=== PATIENT | male | born 1955 | race Caucasian/White ===

== ENCOUNTER 2020-04-01 19:17 | Observation (INO) | payer OTHER, SELFPAY ==
[2020-04-01] VITALS (15 sets, daily range): BP systolic 142–203; BP diastolic 79–102; PULSE 68–85; RESP 12–18; TEMP 36.6–36.9; O2SAT 94–99; BMI 22.4; BMI 22.1
--- NOTE | 2020-04-01 19:20 | CT_ITS ---
STUDY: CT BRAIN WITHOUT CONTRAST REASON FOR EXAM: Male, 64 years old. Stroke evaluation, left arm weakness. RADIATION DOSAGE (If Supplied By Facility): CTDIvol = ( 44.99 ) mGy, DLP = ( 812.98 ) mGycm TECHNIQUE: Transaxial CT imaging of the brain was performed without administration of intravenous contrast material. Individualized dose optimization techniques were used for this CT. COMPARISON: No relevant priors. FINDINGS: Brain parenchyma is without focal lesions, mass effect, acute intracranial hemorrhage, extra parenchymal fluid collections, hydrocephalus or herniation. The skull is intact. CT/CTA Head AND Neck W/ Contrast IMPRESSION: 1. Normal CT brain. No acute findings. 2. No acute intracranial hemorrhage. 3. No acute territorial infarction. N.B. : The above information has been verbally conveyed by Jinny Sánchez to Mehul Puckett MD, on 04/01/2020 19:40:25 (ET). Electronically Signed: Jinny Sánchez, at 19:38 EDT Tel , Service support ,
--- NOTE | 2020-04-01 19:20 | CT_ITS ---
STUDY: CT BRAIN WITHOUT CONTRAST REASON FOR EXAM: Male, 64 years old. Stroke evaluation, left arm weakness. RADIATION DOSAGE (If Supplied By Facility): CTDIvol = ( 44.99 ) mGy, DLP = ( 812.98 ) mGycm TECHNIQUE: Transaxial CT imaging of the brain was performed without administration of intravenous contrast material. Individualized dose optimization techniques were used for this CT. COMPARISON: No relevant priors. FINDINGS: Brain parenchyma is without focal lesions, mass effect, acute intracranial hemorrhage, extra parenchymal fluid collections, hydrocephalus or herniation. The skull is intact. CT/Brain/Head without Contrast IMPRESSION: 1. Normal CT brain. No acute findings. 2. No acute intracranial hemorrhage. 3. No acute territorial infarction. N.B. : The above information has been verbally conveyed by Jinny Sánchez to Mehul Puckett MD, on 04/01/2020 19:40:25 (ET). Electronically Signed: Jinny Sánchez, at 19:38 EDT Tel , Service support ,
--- NOTE | 2020-04-01 19:53 | EKG12_ITS ---
Test Reason : STOKE SYMPTOMS Blood Pressure : / mmHG Vent. Rate : 077 BPM Atrial Rate : 077 BPM P-R Int : 196 ms QRS Dur : 090 ms QT Int : 396 ms P-R-T Axes : 065 001 052 degrees QTc Int : 448 ms Normal sinus rhythm Normal ECG Confirmed by WHITNEY PRICE, MICHELL ([id number]), research editor BENJAMIN LOBO ([id number]) on 04/05/2020 11:06:26 AM Referred By: MIGUEL Confirmed By:MICHELL OLSON MD
--- NOTE | 2020-04-01 20:00 | ED.VIS.STROK ---
History of Present Illness Chief Complaint: Neuro S/Sx Informant: Patient Onset: Today Narrative: Patient developed strokelike symptoms that started at 1850 about 30 minutes prior to arrival. He developed left arm left leg weakness and some paresthesias in the left face. He did not have any confusion he did not have any dysarthria no vision changes no ataxia or dizziness. He walked into the emergency department brought by his . He denies any medical problems. Past Medical History - Allergies and Home Meds Allergies/Adverse Reactions: Allergies No Known Allergies Allergy (Verified 04/01/20 19:51) Primary Care Physician: José Miguel Montoya MD [Primary Care Provider] - Past Medical History: None Smoking Status: Former smoker Review of Systems All systems negative except as indicated General: Denies: Fever Eyes: Denies: Visual changes - bilaterally ENT: Denies: Sore throat Cardiovascular: Denies: Chest pain Respiratory: Denies: Dyspnea, Cough Gastrointestinal: Denies: Abdominal pain, Nausea Musculoskeletal: Denies: Myalgias, Arthralgias Neurological: Reports: - - As in HPI. Denies: Headache Endocrine: Denies: Polyuria Hematologic: Denies: Easy bruising STROKE Vital Signs/Narrative: Vital Signs Temp Pulse Resp BP Pulse Ox 04/01/20 19:56 99 04/01/20 19:54 98 F 04/01/20 19:53 81 12 169/79 H 94 04/01/20 19:50 77 18 169/79 H 99 04/01/20 19:18 98 F 85 14 203/102 H 99 - NIHSS Initial 1a Level of Consciousness: 0 1b LOC Questions (Score 2 if aphasic/stupor): 0 1c LOC Commands (Only score 1st attempt): 0 2 Best Gaze (If aphasic, use reflexive mvmts.): 0 3 Visual: 0 4 Facial Palsy: 0 5 Motor Arm Right (UN = amputation/fusion): 0 5 Motor Arm Left: 1 6 Motor Leg Right: 0 6 Motor Leg Left: 1 7 Limb ataxia (Only + if out of proportion): 0 8 Sensory (Aphasia/stupor=0 or 1, coma=2): 0 9 Best Language: 0 10 Dysarthria (mute, coma=2, intubated=UN): 0 11 Extinction and Inattention (only scored if +): 0 Total Score: 2 2nd Follow up 1a Level of Consciousness: 0 1b LOC Questions (Score 2 if aphasic/stupor): 0 1c LOC Commands (Only score 1st attempt): 0 2 Best Gaze (If aphasic, use reflexive mvmts.): 0 3 Visual: 0 4 Facial Palsy: 0 5 Motor Arm Right (UN = amputation/fusion): 0 5 Motor Arm Left: 0 6 Motor Leg Right: 0 6 Motor Leg Left: 0 7 Limb ataxia (Only + if out of proportion): 0 8 Sensory (Aphasia/stupor=0 or 1, coma=2): 0 9 Best Language: 0 10 Dysarthria (mute, coma=2, intubated=UN): 0 11 Extinction and Inattention (only scored if +): 0 Total Score: 0 General: Well nourished, Well developed Eyes: Perrl, EOMI ENT: Moist mucous membranes Cardiovascular: Regular rate, Regular rhythm Respiratory: No distress Abdomen: Soft, Nontender Back: Nontender, Normal Inspection Extremities: Nontender, No edema Skin: Normal color Neurological: Alert, Oriented x3, - - See the above NIH stroke scale Psychological: Normal affect Diagnostic/Tx/Re-eval - Rhythm Strip Rhythm Strip: Sinus Rhythm Rate: 77 Ectopy: None - EKG Initial EKG Interpretation: Sinus Rhythm, - - Sinus rhythm with a rate of 77. Normal ND and QTc intervals. No ischemic changes. - Medical Decision Making Stroke Team Activated: Yes IV Alteplase (t-PA) Administered: No Patient's NIH stroke scale improved it is now a 0. Thus the patient does not meet criteria for TPA. His CT is unremarkable he will need admission to the hospital. Critical care time (excluding procedures): - - Discussion with the family, discussion with consultants, admission and direct patient care ED Disposition - Plan for ED Patient: Disposition: Acute Care [facility] Diagnosis: Stroke
[2020-04-01 20:07] LABS: Absolute Lymphocyte Count 2.91 X10^3/uL (0.83-4.51); Absolute Neutrophil Count 5.7 X10^3/uL (2.0-7.7); Basophil# 0.03 X10^3/uL; Basophil% 0.3 % (0-1); Eosinophil# 0.23 X10^3/uL; Eosinophils% 2.4 % (0-5); Hematocrit 43.1 % (40-54); Hemoglobin 14.5 g/dL (13.0-16.5); Lymphocyte # 2.91 X10^3/ul (4.0); Lymphocyte % 30.2 % (19-41); Mean Corp Hgb Conc 33.6 g/dL (32-36); Mean Corpuscular Hgb 30.7 pg (27.0-32.0); Mean Corpuscular Volume 91.3 fL (80-94); Mean Platelet Vol. 9.6 fl (6.2-12.0); Monocyte# 0.78 X10^3/uL; Monocyte% 8.1 % (0-10); NRBC Flagged by Analyzer 0 % (0-5); Neutrophil # 5.65 X10^3/uL (2.7-7.7); Neutrophil % 58.7 % (47-70); Platelet Count 258 K/mm3 (150-450); RBC Distribution Width SD 40.2 fl (35.1-43.9); Red Blood Count 4.72 M/mm3 (4.6-6.2); White Blood Count 9.6 K/mm3 (4.4-11.0)
[2020-04-01 20:12] LABS: Prothrombin Time (Protime)PT. 12.9 SECONDS (11.7-14.9)
[2020-04-01 20:13] LABS: Partial Thromboplast Time 28.2 Seconds (24.1-36.2)
[2020-04-01] MEDS: 0.9% Normal Saline 1,000 ML 50 ML IV (20:16)
--- NOTE | 2020-04-01 20:18 | HP.PCM_ITS ---
Problem List (1) Stroke Status: Acute History of Present Illness Date of Admission: 04/01/20 Chief Complaint: LEFT SIDE WEAKNESS The patient is a 64 year old M who denies any significant past medical history present with sudden left-sided weakness. Her symptoms started few hours before presentation. Initially he had left arm weakness. And then he developed weakness of his left upper extremity and left lower extremity. He reported his left arm was too weak to the point that he could not lift it up. Later on he had resolution of his symptoms. Stroke alert was called at emergency department. Emergent department doctor reported that the radiologist notified him about a plaque in patient's carotid arteries. Brain CT and a CTA was otherwise unremarkable. Emergent department doctor discussed the case with stroke the Tele neurologists at [facility] and patient was not deemed as a candidate of TPA because of low NIH. Past Medical History Medical History: Medical History (Last Reviewed 04/01/20 @ 21:[address] Elton Lopez MD) Patient denies significant medical history Allergies No Known Allergies Allergy (Verified 04/01/20 19:51) Home Medications: Ambulatory Orders Medication Instructions Recorded NK 04/01/20 Surgical History: herniorrhaphy Smoking Status: Former smoker Alcohol: Occasional - *Family History Maternal History Items: Stroke Paternal History Items: Cancer - Lung Review of Systems Constitutional: Denies: Chills, Fever, Weight Change HEENT: Denies: Head Aches, Sinus Congestion, Sinus Drainage Cardiovascular: Denies: Chest Pain, Palpitations Respiratory: Denies: Cough, Shortness of breath at rest, Sputum production Gastrointestinal: Denies: Abdominal Pain, Nausea, Vomiting Genitourinary: Denies: Dysuria Musculoskeletal: Denies: Joint Pain, Joint Tenderness Skin: Denies: Rash, Wounds Neurological: Reports: Focal weakness, Numbness. Denies: Tingling Psychiatric: Denies: Anxiety, Depression, Homicidal Ideations, Suicidal Ideations Hematologic/ Lymphatic: Denies: Easy Bruising, Easy Bleeding VTE Information - Inpt Only VTE Present on Admission: No VTE Mechan Device Prophylaxis: SCD's VTE Pharm Prophylaxis ordered?: No Patient Problems: Active and Suspected Problems (Last Updated 04/01/20 @ 20:[address] Elotn Lopez MD) Stroke (Acute) - Physical Exam Vitals/I&O's: Vital Signs Temp Pulse Resp BP Pulse Ox 98 F 79 18 169/79 H 99 04/01/20 20:12 04/01/20 20:12 04/01/20 20:12 04/01/20 20:12 04/01/20 20:12 Oxygen Flow Rate (L/min) 1 Oxygen Delivery Method Nasal Cannula Weight: 77.02 kg Body Mass Index (BMI) 22.4 Finger Stick Blood Glucose 124 General: Alert, Oriented x3, Cooperative HEENT: Atraumatic, PERRLA, EOMI, Normocephalic Neck: Supple, No JVD, Negative Carotid Bruits Lungs: Clear to auscultation, Normal air movement, No rhonchi, No wheeze, No rales Cardiovascular: Regular rate, Normal S1, Normal S2, No murmurs Abdomen: Bowel Sounds Present, Soft, Non Tender Extremities: No edema, Capillary Refill Less than 3 Seconds Skin: No rashes, No breakdown Musculoskeletal: No Tenderness to Palpation of Joints or Extremities Neurological: Cranial nerves II-XII grossly intact, Deep Tendon Reflexes 2+/4 and Symmetrical, Sensory exam intact to light touch and pain, Coordination normal, - - Motor strength 4 out of 5 in left upper and left lower extremities. Strength 5 out of 5 in the right upper and right lower extremities. Psych/Mental Status: Normal Affect, Appropriate Laboratory Results 04/01/20 19:20: WBC 9.6, RBC 4.72, Hgb 14.5, Hct 43.1, MCV 91.3, MCH 30.7, MCHC 33.6, RDW Std Deviation 40.2, RDW Coeff of Alex 12.0, Plt Count 258, MPV 9.6, Immature Gran % (Auto) 0.300, Neut % (Auto) 58.7, Lymph % (Auto) 30.2, [place] % (Auto) 8.1, Eos % (Auto) 2.4, Baso % (Auto) 0.3, Absolute Neuts (auto) 5.7, Absolute Lymphs (auto) 2.91, Nucleated RBC % 0 04/01/20 19:20: PT 12.9, INR 1.0, APTT 28.2 04/01/20 19:20: Sodium Pending, Potassium Pending, Chloride Pending, Carbon Dioxide Pending, Anion Gap Pending, BUN Pending, Creatinine Pending, Est GFR (MDRD) Af Amer Pending, Est GFR (MDRD) Non-Af Pending, BUN/Creatinine Ratio Pending, Glucose Pending, Calcium Pending Current Medications Sodium Chloride () 1,000 mls @ 50 mls/hr IV .Q20H LESLIE Last Admin: 04/01/20 20:16 Dose: 50 mls/hr Documented by: Assessment/Plan All Active Problems (Last Updated 04/01/20 @ 20:[address] Elton Lopez MD) Stroke (Acute) The patient is a 64 year old M who denies any significant past medical history present with sudden left-sided weakness; and left numbness. Acute CVA Serial NINDS NIH Scale per protocol. CT of the head; and CTA did not show acute bleed. Left ICA ulcerated plaque noted. Possibility of right common carotid fistula or dural AV malformation was raised. Ophthalmology and/or neurology referral was advised. This is not an emergent finding. Please consider discussing with neurologist in a.m. -Check Hba1c, Lipid level Physical therapy, occupational therapy and speech therapy to work with patient. N.p.o. until bedside swallow eval. Daily aspirin. High intensity statin. Check a CMP for liver enzymes. Permissive hypertension. Control blood pressure with labetalol for systolic blood pressure of more than 220 or diastolic blood pressure of more than 120. -Permissive HTN for 24 hrs, detention goal BP < 120/80 mmHg and goal Hba1c < 7% MRI of brain in a.m. Placed on telemetry at the progressive care unit. Echocardiogram ordered. DVT prophylaxis SCD for now. OBSV E&M: [id number] Initial observation care L3
[2020-04-01 20:19] LABS: Anion Gap 9 (5-15); BUN 11 mg/dL (7-18); BUN/Creat Ratio 11.7 RATIO (10-20); Chloride 101 mmol/L (98-107); Creatinine, Serum 0.94 mg/dL (0.70-1.30); EST Glomerular Filtration Rate 86 mL/min (>60); Est Glom Filt Rate - Afr Amer 104 mL/min (>60); Estimated Creatinine Clearance 87.63 ml/min; Glucose 159 mg/dL (74-106); Potassium 3.4 mmol/L (3.5-5.1); Sodium Level 138 mmol/L (136-145)
--- NOTE | 2020-04-01 21:56 | ECHOD_ITS ---
Reason For Study: TIA/CVA Procedure This was a 2D Doppler, Color Flow transthoracic echocardiogram. Contrast injection was performed. Exam performed portable in patient room. Left Ventricle Normal LV size. Left ventricular systolic function is normal. The estimated ejection fraction is 65 %. No evidence for diastolic dysfunction. No regional wall motion abnormalities noted. Right Ventricle Normal RV size. Normal systolic function. Atria Normal left atrium. Normal right atrium. No doppler evidence for ASD. Bubble contrast study negative for right to left interatrial shunt. Mitral Valve There is no mitral annular calcification. Mild diffuse mitral valve thickening. Moderate mitral valve prolapse. Mild (1+) mitral valve insufficiency. Tricuspid Valve Normal tricuspid valve. Trivial tricuspid valve insufficiency. Aortic Valve Trisinus/trileaflet aortic valve. Mild focal aortic valve calcification. Pulmonic Valve The pulmonic valve is not well visualized. Trivial pulmonic valve insufficiency. Great Vessels The aortic root is not well visualized. Pericardium/Pleural No pericardial effusion. Medication Performed a rapid injection of agitated mix of 9 cc saline and 1cc air to assess for atrial septal defect. MMode/2D Measurements & Calculations LVIDd: 4.3 cm IVSd: 1.1 cm LA dimension: 3.3 cm LVIDs: 2.2 cm LVPWd: 1.1 cm FS: 48.8 % LAV(MOD-bp): 47.1 ml LA A4 area: 18.3 cm2 RA A4 area: 18.1 cm2 LAV(MOD-bp) Indexed: 23.6 ml/m2 LAV(MOD-sp2): 44.5 ml LAV(MOD-sp4): 48.5 ml Time Measurements MV dec time: 0.40 sec Doppler Measurements & Calculations MV E max benji: 61.2 cm/sec Lat Peak E' Benji: 9.9 cm/sec Med Peak E' Benji: 9.6 cm/sec MV A max benji: 86.3 cm/sec E/E' lat: 6.2 E/E' med: 6.4 MV E/A: 0.71 MV V2 max: 129.0 cm/sec MV P1/2t max benji: 131.9 cm/sec Ao V2 max: 121.3 cm/sec MV max P.7 mmHg MV P1/2t: 110.4 msec Ao max P.9 mmHg MV V2 mean: 62.5 cm/sec MV dec slope: 349.9 cm/sec2 MV mean P.9 mmHg MV V2 VTI: 45.8 cm MVA(P1/2t): 2.0 cm2 LV V1 max: 100.6 cm/sec PA V2 max: 80.9 cm/sec LV V1 max P.0 mmHg Interpretation Summary Contrast injection was performed. Left ventricular systolic function is normal. The estimated ejection fraction is 65 %. Mild diffuse mitral valve thickening. Moderate mitral valve prolapse. Mild (1+) mitral valve insufficiency. Trivial tricuspid valve insufficiency. Mild focal aortic valve calcification. Trivial pulmonic valve insufficiency. No evidence for diastolic dysfunction. Bubble contrast study negative for right to left interatrial shunt. Ordering Physician: Elton Lopez Referring Physician: MARI WALKER Performed By: Avery Fatima RCS
[2020-04-01] MEDS: Atorvastatin Calcium 40 MG Tablet PO (23:02)
[2020-04-02] VITALS (12 sets, daily range): BP systolic 116–155; BP diastolic 70–84; PULSE 50–70; RESP 12–18; TEMP 36.6–37; O2SAT 95–97; BMI 22.1
[2020-04-02 07:14] LABS: ALB/GLOB Ratio 1.1 RATIO (0.9-2.4); AST(SGOT) 22 U/L (15-37); Alanine Aminotransfer ALT/SGPT 24 U/L (16-61); Albumin, Serum 3.8 g/dL (3.2-5.0); Alkaline Phosphatase 53 U/L (45-117); Anion Gap 7 (5-15); BUN 11 mg/dL (7-18); BUN/Creat Ratio 15.7 RATIO (10-20); Calcium,Total 8.9 mg/dL (8.5-10.1); Chloride 105 mmol/L (98-107); Cholesterol 220 mg/dL (200); EST Glomerular Filtration Rate 121 mL/min (>60); Est Glom Filt Rate - Afr Amer 146 mL/min (>60); Estimated Creatinine Clearance 116.11 ml/min; Globulin 3.4 g/dL (2.2-4.2); Glucose 108 mg/dL (74-106); High Density Lipoprotein 74 mg/dL; Potassium 4.1 mmol/L (3.5-5.1); Protein, Total 7.2 g/dL (6.4-8.2); Sodium Level 137 mmol/L (136-145); Triglycerides 64 mg/dL; Very Low Density Lipoprotein 13 mg/dL (5-40)
[2020-04-02 07:23] LABS: Hemoglobin A1c 5.7 % (3.8-5.6)
--- NOTE | 2020-04-02 07:30 | MRI_ITS ---
We are attempting to reach an attending provider to discuss findings. An addendum with communication details will be sent when the communication is complete. STUDY: MRI BRAIN WITHOUT CONTRAST REASON FOR EXAM: Male, 64 years old. CVA, LEFT ARM NUMBNESS TECHNIQUE: Standardized multiplanar fat and water weighted pulse sequences were obtained. COMPARISON: 04/01/2020 CT of the head FINDINGS: Normal size of the ventricles and extra-axial spaces for the patient''s age. Normal white matter tracts of the supratentorial brain. There is approximately 8 mm area of restricted diffusion involving the posterior right frontal lobe (axial image #22 series 4) with drop of signal on ADC map, consistent with acute infarction. Normal bilateral basal ganglia. Normal thalami. There is no extra-axial fluid accumulation. Normal flow voids within the major intracranial circulation suggesting patency by spin echo criteria. Normal sella turcica, pituitary gland, infundibular stalk, optic chiasm and hypothalamus. Normal tectal plate and pineal gland. Normal midbrain, kenny and medulla. Normal cerebellum. Normal basal cisterns. MRI/Brain without Contrast IMPRESSION: Acute small right frontal infarct. Electronically Signed: Lucio Rodriguez MD at 11:29 EDT Tel , Service support ,
[2020-04-02] MEDS: Aspirin 81 MG TAB.CHEW PO (09:03)
--- NOTE | 2020-04-02 09:48 | PN_ITS ---
Patient Problems: Active and Suspected Problems (Last Reviewed 04/01/20 @ 21:[address] Elton Lopez MD) Stroke (Acute) Vitals/I&O's: Vital Signs Temp Pulse Resp BP Pulse Ox 98.3 F 59 L 18 142/77 H 97 04/02/20 08:59 04/02/20 08:59 04/02/20 08:59 04/02/20 08:59 04/02/20 08:59 Oxygen Flow Rate (L/min) 1 Oxygen Delivery Method Room Air Weight: 167 lb 8.821 oz Body Mass Index (BMI) 22.1 Finger Stick Blood Glucose 124 Intake and Output for Last 24 Hours 03/31/20 04/01/20 04/02/20 23:59 23:59 23:59 Intake Total 139.17 / 339.17 200 / 200 Balance 139.17 / 339.17 200 / 200 Laboratory Results 04/01/20 19:20: WBC 9.6, RBC 4.72, Hgb 14.5, Hct 43.1, MCV 91.3, MCH 30.7, MCHC 33.6, RDW Std Deviation 40.2, RDW Coeff of Alex 12.0, Plt Count 258, MPV 9.6, Immature Gran % (Auto) 0.300, Neut % (Auto) 58.7, Lymph % (Auto) 30.2, [place] % (Auto) 8.1, Eos % (Auto) 2.4, Baso % (Auto) 0.3, Absolute Neuts (auto) 5.7, Absolute Lymphs (auto) 2.91, Nucleated RBC % 0 04/01/20 19:20: PT 12.9, INR 1.0, APTT 28.2 04/01/20 19:20: Sodium 138, Potassium 3.4 L, Chloride 101, Carbon Dioxide 28.0, Anion Gap 9, BUN 11, Creatinine 0.94, Estim Creat Clear Calc 87.63, Est GFR (MDRD) Af Amer 104, Est GFR (MDRD) Non-Af 86, BUN/Creatinine Ratio 11.7, Glucose 159 H, Calcium 9.0 04/02/20 06:37: Sodium 137, Potassium 4.1, Chloride 105, Carbon Dioxide 25.0, Anion Gap 7, BUN 11, Creatinine 0.70, Estim Creat Clear Calc 116.11, Est GFR (MDRD) Af Amer 146, Est GFR (MDRD) Non-Af 121, BUN/Creatinine Ratio 15.7, Glucose 108 H, Calcium 8.9, Total Bilirubin 0.50, AST 22, ALT 24, Alkaline Phosphatase 53, Total Protein 7.2, Albumin 3.8, Globulin 3.4, Albumin/Globulin Ratio 1.1, Triglycerides 64, Cholesterol 220 H, LDL Cholesterol 133 H, VLDL Cholesterol 13, HDL Cholesterol 74 04/02/20 06:37: Hemoglobin A1c 5.7 H Current Medications Acetaminophen (Tylenol) 650 mg PO Q6H PRN PRN PRN Reason: Pain Score 1-10/Temp > 100.7 F Aspirin (Aspirin, Baby) 81 mg PO DAILY@0800 [facility] Last Admin: 04/02/20 09:03 Dose: 81 mg Documented by: Atorvastatin Calcium (Lipitor) 40 mg PO QHS [facility] Last Admin: 04/01/20 23:02 Dose: 40 mg Documented by: Dextrose (D50w Syringe) 0 gm IV X1 PRN; Protocol PRN Reason: Hypoglycemia Glucagon () 1 mg IM .X1 PRN PRN Reason: Hypoglycemia Hydralazine HCl (Apresoline Iv) 5 mg IV Q30M PRN PRN Reason: to maintain BP goals Labetalol HCl (Trandate) 10 - 20 mg IV Q10M PRN PRN PRN Reason: to maintain BP goals Melatonin (Melatonin) 3 mg PO QHS PRN PRN PRN Reason: INSOMNIA Ondansetron HCl (Zofran) 4 mg IV Q8H PRN PRN PRN Reason: NAUSEA/VOMITING Sodium Chloride () 10 - 40 ml IV UD PRN PRN Reason: SALINE FLUSH STROKE Vital Signs/Narrative: Vital Signs Temp Pulse Resp BP Pulse Ox 04/02/20 08:59 98.3 F 59 L 18 142/77 H 97 04/02/20 07:52 50 L 04/02/20 06:00 60 15 116/70 95 Medical Necessity - Tobacco Use Smoking Status: Former smoker Assessment/Plan All Active Problems (Last Reviewed 04/01/20 @ 21:[address] Elton Lopez MD) Stroke (Acute) The patient is a 64 year old M who denies any significant past medical history present with sudden left-sided weakness; and left numbness. Acute CVA Serial NINDS NIH Scale per protocol. CT of the head; and CTA did not show acute bleed. Left ICA ulcerated plaque noted. Possibility of right common carotid fistula or dural AV malformation was raised. Ophthalmology and/or neurology referral was advised. This is not an emergent finding. Please consider discussing with neurologist in a.m. -Check Hba1c, Lipid level Physical therapy, occupational therapy and speech therapy to work with patient. N.p.o. until bedside swallow eval. Daily aspirin. High intensity statin. Check a CMP for liver enzymes. Permissive hypertension. Control blood pressure with labetalol for systolic blood pressure of more than 220 or diastolic blood pressure of more than 120. -Permissive HTN for 24 hrs, custodial goal BP < 120/80 mmHg and goal Hba1c < 7% MRI of brain in a.m. Placed on telemetry at the progressive care unit. Echocardiogram ordered. DVT prophylaxis SCD for now.
--- NOTE | 2020-04-02 11:59 | PN_ITS ---
Patient Problems: Active and Suspected Problems (Last Reviewed 04/01/20 @ 21:[address] Elton Lopez MD) Stroke (Acute) Reason for Visit: Follow-up for acute stroke Objective: Patient symptoms of weakness, paresthesia and numbness has resolved on the left side. Blood pressure is on permissive hypertension range. Normal sinus with sinus arrhythmia on phototypesetting equipment monitor. EKG sinus bradycardia at 55 bpm, QTC 415 ms On exam General: Alert, Oriented x3, Cooperative HEENT: Atraumatic, PERRLA, EOMI, Normocephalic Neck: Supple, No JVD, Negative Carotid Bruits Lungs: Clear to auscultation, Normal air movement, No rhonchi, No wheeze, No rales Cardiovascular: Regular rate, Regular Rhythm, Normal S1, Normal S2, No murmurs Abdomen: Bowel Sounds Present, Soft, Non Tender, Non-Distended Extremities: No edema, Capillary Refill Less than 3 Seconds Skin: No rashes, No breakdown Musculoskeletal: No Tenderness to Palpation of Joints or Extremities Neurological: Cranial nerves II-XII grossly intact Psych/Mental Status: Normal Affect, Appropriate Vitals/I&O's: Vital Signs Temp Pulse Resp BP Pulse Ox 97.9 F 57 L 18 155/84 H 96 04/02/20 16:30 04/02/20 16:30 04/02/20 16:30 04/02/20 16:30 04/02/20 16:30 Oxygen Flow Rate (L/min) 1 Oxygen Delivery Method Room Air Weight: 167 lb 8.821 oz Body Mass Index (BMI) 22.1 Finger Stick Blood Glucose 124 Intake and Output for Last 24 Hours 03/31/20 04/01/20 04/02/20 23:59 23:59 23:59 Intake Total 139.17 / 339.17 200 / 200 Balance 139.17 / 339.17 200 / 200 Laboratory Results 04/01/20 19:20: WBC 9.6, RBC 4.72, Hgb 14.5, Hct 43.1, MCV 91.3, MCH 30.7, MCHC 33.6, RDW Std Deviation 40.2, RDW Coeff of Alex 12.0, Plt Count 258, MPV 9.6, Immature Gran % (Auto) 0.300, Neut % (Auto) 58.7, Lymph % (Auto) 30.2, [place] % (Auto) 8.1, Eos % (Auto) 2.4, Baso % (Auto) 0.3, Absolute Neuts (auto) 5.7, Absolute Lymphs (auto) 2.91, Nucleated RBC % 0 04/01/20 19:20: PT 12.9, INR 1.0, APTT 28.2 04/01/20 19:20: Sodium 138, Potassium 3.4 L, Chloride 101, Carbon Dioxide 28.0, Anion Gap 9, BUN 11, Creatinine 0.94, Estim Creat Clear Calc 87.63, Est GFR (MDRD) Af Amer 104, Est GFR (MDRD) Non-Af 86, BUN/Creatinine Ratio 11.7, Glucose 159 H, Calcium 9.0 04/02/20 06:37: Sodium 137, Potassium 4.1, Chloride 105, Carbon Dioxide 25.0, Anion Gap 7, BUN 11, Creatinine 0.70, Estim Creat Clear Calc 116.11, Est GFR (MDRD) Af Amer 146, Est GFR (MDRD) Non-Af 121, BUN/Creatinine Ratio 15.7, Glucose 108 H, Calcium 8.9, Total Bilirubin 0.50, AST 22, ALT 24, Alkaline Phosphatase 53, Total Protein 7.2, Albumin 3.8, Globulin 3.4, Albumin/Globulin Ratio 1.1, Triglycerides 64, Cholesterol 220 H, LDL Cholesterol 133 H, VLDL Cholesterol 13, HDL Cholesterol 74 04/02/20 06:37: Hemoglobin A1c 5.7 H Current Medications Acetaminophen (Tylenol) 650 mg PO Q6H PRN PRN PRN Reason: Pain Score 1-10/Temp > 100.7 F Aspirin (Aspirin, Baby) 81 mg PO DAILY@0800 [facility] Last Admin: 04/02/20 09:03 Dose: 81 mg Documented by: Clopidogrel Bisulfate (Plavix) 75 mg PO DAILY [facility] Last Admin: 04/02/20 13:56 Dose: 75 mg Documented by: Dextrose (D50w Syringe) 0 gm IV X1 PRN; Protocol PRN Reason: Hypoglycemia Glucagon () 1 mg IM .X1 PRN PRN Reason: Hypoglycemia Hydralazine HCl (Apresoline Iv) 5 mg IV Q30M PRN PRN Reason: to maintain BP goals Labetalol HCl (Trandate) 10 - 20 mg IV Q10M PRN PRN PRN Reason: to maintain BP goals Melatonin (Melatonin) 3 mg PO QHS PRN PRN PRN Reason: INSOMNIA Ondansetron HCl (Zofran) 4 mg IV Q8H PRN PRN PRN Reason: NAUSEA/VOMITING Pravastatin Sodium (Pravachol) 40 mg PO QHS [facility] Sodium Chloride () 10 - 40 ml IV UD PRN PRN Reason: SALINE FLUSH STROKE Vital Signs/Narrative: Vital Signs Temp Pulse Resp BP Pulse Ox 04/02/20 16:30 97.9 F 57 L 18 155/84 H 96 Medical Necessity - Tobacco Use Smoking Status: Former smoker Assessment/Plan All Active Problems (Last Reviewed 04/01/20 @ 21:[address] Elton Lopez MD) Stroke (Acute) 1. Acute small right frontal infarct: Patient is being admitted in PCU. cafeteria monitor shows sinus rhythm with sinus arrhythmia. EKG sinus bradycardia at 55 bpm, QTC 415 ms. Blood pressure in permissive hypertension range. A1c 5.7 suggestive of prediabetes. PT OT and speech evaluation done and found in normal range. CTA head and neck reviewed and shows patent cervical arteries with bilateral common carotid bulbs ulcerated plaques. SOC neurology consult pending. 2D echo negative for right to left interatrial shunt. Normal left atrium. 2. Hypertension: Patient blood pressure was high at 203/102 in ED. Currently permissive hypertension. Lisinopril 10 mg daily next 1 or 2 days with holding parameters. 3. Dyslipidemia: Fasting profile shows LDL 133, total cholesterol 220. Patient has known dyslipidemia was put on atorvastatin which caused myalgia and as per patient decreased muscle bulk in quadriceps therefore he discontinued. Patient agreed for pravastatin if not atorvastatin. 4. DVT prophylaxis bilateral SCDs Total time of the visit including total time spent in counseling or coordination of care, (more than 50% of the total time, spent in obtaining medical information from nurses and other ancillary care providers), discussion with consultant nurse, neurologist, explaining to patient and his , review of labs and imaging is 30 minutes Inpatient E&M: 02657 Subs Hosp L2
--- NOTE | 2020-04-02 13:39 | CASEMGMT ---
RN CM Assessment Note Chart reviewed. Pt with CVA, OBS status. PT/OT/ST evaluations reviewed and no further therapy is recommended. Physician is waiting for neurology f/u and anticipate patient can return home on dc. Presentation: Left arm and leg weakness, paresthesias L face. Diagnosis: Acute small right frontal infarct PCP: Dr. Montoya Specialists: neurology Insurance: MMO Preferred Pharmacy: [facility] Prescription Benefit: yes LNOK: Omar Caballero, S.O. Living Arrangements: one story home, three steps into home. Was independent prior to admission. 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 Tranportation: drives DME: cane Patient DC Goals: Home on dc. DC Plan: Home. No needs identified. Notify CM if dc need arise. Bib DALY RN ACM
--- NOTE | 2020-04-02 13:54 | DCINST_ITS ---
- Discharge Diagnoses Current Active Problems: Current Active and Chronic Problems (Last Reviewed 04/01/20 @ 21:[address] Elton Lopez MD) Stroke (Acute) You will use the following diet at home:: Cardiac Your food should be the consistency of: Regular Discharge Activity: May Not Drive - for few days until sees PCP. Call your doctor if you observe: Fever of 101 or Higher, Coldness, Increased Pain, Numbness or Tingling, Change in Color, Inability to urinate, Inability to have a bowel movement, Shortness of breath, Dizziness, Fainting spells, Swelling in the ankles, Chest pain, Prolonged hiccoughing, Increased palpitations (irregular heartbeat), Calf discomfort, Uncontrolled pain Additional Instructions: Follow-up with neurologist for asymmetric cavernous sinuses with possibility of right CCA fistula or dural AV malformation. Allergies/Adverse Reactions: Allergies No Known Allergies Allergy (Verified 04/01/20 19:51) Medications to take at Discharge Aspirin [Aspirin, Baby] 81 mg PO DAILY@0800 #30 tab.chew 04/02/20 Clopidogrel Bisulfate [Plavix] 75 mg PO DAILY #30 tab 04/02/20 Lisinopril [Prinivil] 10 mg PO DAILY #30 tab 04/02/20 Pravastatin [Pravachol] 40 mg PO QHS #30 tab 04/02/20 The following prescriptions were given: Aspirin [Aspirin, Baby] 81 mg PO DAILY@0800 #30 tab.chew Transmission Status: Pending to [facility] Clopidogrel Bisulfate [Plavix] 75 mg PO DAILY #30 tab Transmission Status: Pending to [facility] Pravastatin [Pravachol] 40 mg PO QHS #30 tab Transmission Status: Pending to [facility] Lisinopril [Prinivil] 10 mg PO DAILY #30 tab Transmission Status: Pending to [facility] Primary Care Physician: José Miguel Montoya MD [Primary Care Provider] - Please follow up with your Primary Care Physician in: IN 1-2 WEEKS Test Results: Test results from this visit will be discussed in further detail at your follow- up appointment, if applicable. Please Follow Up With: Robert Henson MD When: IN 2 WEEKS for follow up stroke
[2020-04-02] MEDS: Clopidogrel Bisulfate 75 MG Tablet PO (13:56)
--- NOTE | 2020-04-02 14:03 | EKG12_ITS ---
Test Reason : ROUTINE Blood Pressure : / mmHG Vent. Rate : 055 BPM Atrial Rate : 055 BPM P-R Int : 190 ms QRS Dur : 088 ms QT Int : 434 ms P-R-T Axes : 058 000 037 degrees QTc Int : 415 ms Sinus bradycardia Otherwise normal ECG When compared with ECG of 01-APR-2020 19:51, MANUAL COMPARISON REQUIRED, DATA IS UNCONFIRMED Confirmed by GABO GIRON ([id number]), editor news BENJAMIN LOBO ([id number]) on 04/07/2020 12:09:55 PM Referred By: RA Confirmed By:GABO GIRON
[2020-04-02] MEDS: Pravastatin 40 MG Tablet PO (20:34)
[2020-04-03 00:30] VITALS: BP 118/75; PULSE 71; RESP 14; TEMP 37.1; O2SAT 96
[2020-04-03 02:59] VITALS: PULSE 55
[2020-04-03 04:30] VITALS: BP 120/79; PULSE 62; RESP 12; TEMP 37; O2SAT 96
[2020-04-03 04:41] VITALS: BMI 22.1
[2020-04-03 06:48] VITALS: PULSE 62
[2020-04-03 07:07] VITALS: O2SAT 91
[2020-04-03 07:33] VITALS: BMI 22.1
[2020-04-03 07:40] VITALS: BP 123/76; PULSE 57; RESP 14; TEMP 36.7; O2SAT 95
[2020-04-03] MEDS: Aspirin 81 MG TAB.CHEW PO (07:42)
[2020-04-03] MEDS: Clopidogrel Bisulfate 75 MG Tablet PO (07:42)
--- NOTE | 2020-04-03 08:36 | DCINST_ITS ---
- Discharge Diagnoses Current Active Problems: Current Active and Chronic Problems (Last Reviewed 04/01/20 @ 21:[address] Elton Lopez MD) Stroke (Acute) You will use the following diet at home:: Calorie/Carbohydrate Controlled (specify 1200, 1400, etc) - 1800 ADA diet, Cardiac Your food should be the consistency of: Regular Discharge Activity: May Not Drive - for few days until sees PCP. Call your doctor if you observe: Fever of 101 or Higher, Coldness, Increased Pain, Numbness or Tingling, Change in Color, Inability to urinate, Inability to have a bowel movement, Shortness of breath, Dizziness, Fainting spells, Swelling in the ankles, Chest pain, Prolonged hiccoughing, Increased palpitations (irregular heartbeat), Calf discomfort, Uncontrolled pain Additional Instructions: Event monitor for 4 weeks to rule out arrhythmia for cryptogenic stroke. Follow-up with the stroke neurologist Dr. Eri Sherman in , [facility] in 2 to 4 weeks. Allergies/Adverse Reactions: Allergies No Known Allergies Allergy (Verified 04/01/20 19:51) Medications to take at Discharge Aspirin [Aspirin, Baby] 81 mg PO DAILY@0800 #30 tab.chew 04/02/20 Clopidogrel Bisulfate [Plavix] 75 mg PO DAILY #30 tab 04/02/20 Lisinopril [Prinivil] 10 mg PO DAILY #30 tab 04/02/20 Atorvastatin Calcium [Lipitor] 40 mg PO QHS #30 tab 04/03/20 The following prescriptions were given: Aspirin [Aspirin, Baby] 81 mg PO DAILY@0800 #30 tab.chew Transmission Status: Received by [facility] Atorvastatin Calcium [Lipitor] 40 mg PO QHS #30 tab Transmission Status: Pending to [facility] Clopidogrel Bisulfate [Plavix] 75 mg PO DAILY #30 tab Transmission Status: Received by [facility] Lisinopril [Prinivil] 10 mg PO DAILY #30 tab Transmission Status: Received by [facility] Primary Care Physician: José Miguel Montoya MD [Primary Care Provider] - Please follow up with your Primary Care Physician in: IN 1-2 WEEKS Test Results: Test results from this visit will be discussed in further detail at your follow- up appointment, if applicable. Please Follow Up With: Robert Henson MD When: IN 4 WEEKS, if could not appointment Dr. Eri Sherman Please Follow Up With: José Miguel Montoya MD When: 1-2 weeks
--- NOTE | 2020-04-03 08:48 | PCM.DC.SUM ---
Discharge Date and Diagnosis Date of Admission: 04/01/20 Date of Discharge: 04/02/20 - Primary Discharge Diagnosis Acute Problems: Active Problems (Last Reviewed 04/01/20 @ 21:[address] Elton Lopez MD) Stroke (Acute) Hospital Course and Treatment Imaging Results: 04/02/20 07:30 Brain without Contrast [MRI] Routine Summary of Care Provided: [] The patient is a 64 year old M who denies any significant past medical history present with sudden left-sided weakness; and left numbness. His blood pressure in ED was 203/102 patient was admitted to PCU with acute CVAs. Initial NIH stroke scale was 2; one-point for each left arm and left leg drift. Subsequently NIH stroke scale was 0 with resolution of symptoms. [facility] stroke team was consulted and suggested no TPA but admission in PCU. She was further admitted in PCU. binder roller shows normal sinus rhythm. MRI brain reported acute small right frontal infarct. CTA head and neck shows patent cervical arteries with bilateral common carotid bulbs ulcerated plaques. Fasting profile shows LDL 133, total cholesterol 220. Patient is started on aspirin, Plavix and statin. Patient had severe myalgia with atorvastatin patch therefore statin changed to pravastatin and advised close follow-up with PCP in 1 to 2 weeks in regards to myalgia, muscle weakness and lab assessment with LFT, CK and electrolytes. Patient was seen by PT OT and speech therapy and assessment was found within normal limit and suggested discharge home. BP is elevated in permissive range. 2D echo EF 65% with bubble contrast was negative for [id number] interatrial shunt. Normal left atrium. [facility] neurologist recommended follow-up with stroke neurologist in 2 to 4 weeks, recommended Dr. Eri Sherman. Holter monitor for 2 to 4 weeks and follow-up with cardiology. Agree with aspirin, Plavix and atorvastatin. A1c 5.7 suggestive of prediabetes. prescription for aspirin, Plavix, lisinopril and atorvastatin sent to patient's pharmacy, [facility]. Discussed with pharmacist. Discharge medication reconciliation done. Discharge follow-up instructions completed. Discharge process discussed with the patient and all questions were answered to patient's satisfaction. Follow-up with order picker Dr. Quinonez in 4 weeks with return of Holter monitor/event monitor Total time spent, exact 35 minutes on discharge meds reconciliation, examination, coordination of care with nurses and ancillary staff, review of imaging and blood test and discussion with the patient on follow-up instructions Clinical Impression(s) from Imaging Studies Brain CT 04/01/20 19:20 IMPRESSION: 1. Normal CT brain. No acute findings. 2. No acute intracranial hemorrhage. 3. No acute territorial infarction. Head/Neck CTA 04/01/20 19:20 IMPRESSION: 1. Normal CT brain. No acute findings. 2. No acute intracranial hemorrhage. 3. No acute territorial infarction. ADDENDUM: 04/01/202113 IMPRESSION: 1. Patent cervical arteries. 2. Bilateral common carotid bulbs ulcerated plaques, this is a high risk appearance for acute cerebrovascular events. Neurology referral is advised. Brain MRI 04/02/20 07:30 IMPRESSION: Acute small right frontal infarct. IMPRESSION: Acute small right frontal infarct. Laboratory Results 04/01/20 19:20: WBC 9.6, RBC 4.72, Hgb 14.5, Hct 43.1, MCV 91.3, MCH 30.7, MCHC 33.6, RDW Std Deviation 40.2, RDW Coeff of Alex 12.0, Plt Count 258, MPV 9.6, Immature Gran % (Auto) 0.300, Neut % (Auto) 58.7, Lymph % (Auto) 30.2, [place] % (Auto) 8.1, Eos % (Auto) 2.4, Baso % (Auto) 0.3, Absolute Neuts (auto) 5.7, Absolute Lymphs (auto) 2.91, Nucleated RBC % 0 04/01/20 19:20: PT 12.9, INR 1.0, APTT 28.2 04/01/20 19:20: Sodium 138, Potassium 3.4 L, Chloride 101, Carbon Dioxide 28.0, Anion Gap 9, BUN 11, Creatinine 0.94, Estim Creat Clear Calc 87.63, Est GFR (MDRD) Af Amer 104, Est GFR (MDRD) Non-Af 86, BUN/Creatinine Ratio 11.7, Glucose 159 H, Calcium 9.0 04/02/20 06:37: Sodium 137, Potassium 4.1, Chloride 105, Carbon Dioxide 25.0, Anion Gap 7, BUN 11, Creatinine 0.70, Estim Creat Clear Calc 116.11, Est GFR (MDRD) Af Amer 146, Est GFR (MDRD) Non-Af 121, BUN/Creatinine Ratio 15.7, Glucose 108 H, Calcium 8.9, Total Bilirubin 0.50, AST 22, ALT 24, Alkaline Phosphatase 53, Total Protein 7.2, Albumin 3.8, Globulin 3.4, Albumin/Globulin Ratio 1.1, Triglycerides 64, Cholesterol 220 H, LDL Cholesterol 133 H, VLDL Cholesterol 13, HDL Cholesterol 74 04/02/20 06:37: Hemoglobin A1c 5.7 H Objective: Symptoms of weakness and paresthesia and numbness is resolved on the left side. Blood pressure is on permissive hypertension range. Normal sinus rhythm on network operations lead. Sinus arrhythmia. Patient agreed for taking atorvastatin. Discussed with the SOC telemetry neurology yesterday regarding follow-up with stroke neurologist and Holter monitor. - Physical Exam Vitals/I&O's: Vital Signs Temp Pulse Resp BP Pulse Ox 98.3 F 63 18 138/80 H 95 04/02/20 12:53 04/02/20 13:49 04/02/20 12:53 04/02/20 12:53 04/02/20 12:53 Oxygen Flow Rate (L/min) 1 Oxygen Delivery Method Room Air Weight: 167 lb 8.821 oz Body Mass Index (BMI) 22.1 Finger Stick Blood Glucose 124 Intake and Output for Last 24 Hours 03/31/20 04/01/20 04/02/20 23:59 23:59 23:59 Intake Total 139.17 / 339.17 200 / 200 Balance 139.17 / 339.17 200 / 200 General: Alert, Oriented x3, Cooperative HEENT: Atraumatic, PERRLA, EOMI, Normocephalic Neck: Supple, No JVD, Negative Carotid Bruits Lungs: Clear to auscultation, Normal air movement, No rhonchi, No wheeze, No rales Cardiovascular: Regular rate, Regular Rhythm, Normal S1, Normal S2, No murmurs Abdomen: Bowel Sounds Present, Soft, Non Tender, Non-Distended Extremities: No edema, Capillary Refill Less than 3 Seconds Skin: No rashes, No breakdown Musculoskeletal: No Tenderness to Palpation of Joints or Extremities Neurological: Cranial nerves II-XII grossly intact Psych/Mental Status: Normal Affect, Appropriate Laboratory Results 04/01/20 19:20: WBC 9.6, RBC 4.72, Hgb 14.5, Hct 43.1, MCV 91.3, MCH 30.7, MCHC 33.6, RDW Std Deviation 40.2, RDW Coeff of Alex 12.0, Plt Count 258, MPV 9.6, Immature Gran % (Auto) 0.300, Neut % (Auto) 58.7, Lymph % (Auto) 30.2, [place] % (Auto) 8.1, Eos % (Auto) 2.4, Baso % (Auto) 0.3, Absolute Neuts (auto) 5.7, Absolute Lymphs (auto) 2.91, Nucleated RBC % 0 04/01/20 19:20: PT 12.9, INR 1.0, APTT 28.2 04/01/20 19:20: Sodium 138, Potassium 3.4 L, Chloride 101, Carbon Dioxide 28.0, Anion Gap 9, BUN 11, Creatinine 0.94, Estim Creat Clear Calc 87.63, Est GFR (MDRD) Af Amer 104, Est GFR (MDRD) Non-Af 86, BUN/Creatinine Ratio 11.7, Glucose 159 H, Calcium 9.0 04/02/20 06:37: Sodium 137, Potassium 4.1, Chloride 105, Carbon Dioxide 25.0, Anion Gap 7, BUN 11, Creatinine 0.70, Estim Creat Clear Calc 116.11, Est GFR (MDRD) Af Amer 146, Est GFR (MDRD) Non-Af 121, BUN/Creatinine Ratio 15.7, Glucose 108 H, Calcium 8.9, Total Bilirubin 0.50, AST 22, ALT 24, Alkaline Phosphatase 53, Total Protein 7.2, Albumin 3.8, Globulin 3.4, Albumin/Globulin Ratio 1.1, Triglycerides 64, Cholesterol 220 H, LDL Cholesterol 133 H, VLDL Cholesterol 13, HDL Cholesterol 74 04/02/20 06:37: Hemoglobin A1c 5.7 H Current Medications Acetaminophen (Tylenol) 650 mg PO Q6H PRN PRN PRN Reason: Pain Score 1-10/Temp > 100.7 F Aspirin (Aspirin, Baby) 81 mg PO DAILY@0800 [facility] Last Admin: 04/02/20 09:03 Dose: 81 mg Documented by: Clopidogrel Bisulfate (Plavix) 75 mg PO DAILY [facility] Last Admin: 04/02/20 13:56 Dose: 75 mg Documented by: Dextrose (D50w Syringe) 0 gm IV X1 PRN; Protocol PRN Reason: Hypoglycemia Glucagon () 1 mg IM .X1 PRN PRN Reason: Hypoglycemia Hydralazine HCl (Apresoline Iv) 5 mg IV Q30M PRN PRN Reason: to maintain BP goals Labetalol HCl (Trandate) 10 - 20 mg IV Q10M PRN PRN PRN Reason: to maintain BP goals Melatonin (Melatonin) 3 mg PO QHS PRN PRN PRN Reason: INSOMNIA Ondansetron HCl (Zofran) 4 mg IV Q8H PRN PRN PRN Reason: NAUSEA/VOMITING Pravastatin Sodium (Pravachol) 40 mg PO QHS [facility] Sodium Chloride () 10 - 40 ml IV UD PRN PRN Reason: SALINE FLUSH Discharge Activity: May Not Drive - for few days until sees PCP. Call your doctor if you observe: Fever of 101 or Higher, Coldness, Increased Pain, Numbness or Tingling, Change in Color, Inability to urinate, Inability to have a bowel movement, Shortness of breath, Dizziness, Fainting spells, Swelling in the ankles, Chest pain, Prolonged hiccoughing, Increased palpitations (irregular heartbeat), Calf discomfort, Uncontrolled pain Home Medications: Medications to take at Discharge Aspirin [Aspirin, Baby] 81 mg PO DAILY@0800 #30 tab.chew 04/02/20 Clopidogrel Bisulfate [Plavix] 75 mg PO DAILY #30 tab 04/02/20 Lisinopril [Prinivil] 10 mg PO DAILY #30 tab 04/02/20 Atorvastatin Calcium [Lipitor] 40 mg PO QHS #30 tab 04/03/20 Following Prescrptions Were Given to Patient: Aspirin [Aspirin, Baby] 81 mg PO DAILY@0800 #30 tab.chew Transmission Status: Received by [facility] Atorvastatin Calcium [Lipitor] 40 mg PO QHS #30 tab Transmission Status: Received by [facility] Clopidogrel Bisulfate [Plavix] 75 mg PO DAILY #30 tab Transmission Status: Received by [facility] Lisinopril [Prinivil] 10 mg PO DAILY #30 tab Transmission Status: Received by [facility] Other Amb Orders: 30-Day Event Recorder [[facility]] Location: None Selected Primary Care Physician: José Miguel Montoya MD [Primary Care Provider] - Please follow up with your Primary Care Physician in: IN 1-2 WEEKS Please Follow Up With: Robert Henson MD When: IN 2 WEEKS for follow up stroke Medical Necessity - Tobacco Use Smoking Status: Former smoker Meaningful Use Info Meaningful Use Diagnoses (Choose all that apply): Ischemic CVA - CVA Therapy Assessed for PT,OT and/or ST?: Yes - Ischemic Stroke Antithrombotic order at d/c?: Yes Dx of Atrial fib/flutter?: No Anticoagulant at discharge?: Yes Statins at discharge?: Yes Primary Dx Acute Ischemic CVA?: Yes IV tPA ordered during stay?: No Reason IV t-PA not ordered: Medical Contraindication - NIHSS 0. OBSV E&M: 90788 Observation care discharge
[2020-04-04 07:16] LABS: Bedside Glucose 124 mg/dL (70-110)
== END 2020-04-03 08:39 | disposition home or self-care (01) ==
LOC: ED 20:18 → PCU 21:15
PROVIDERS: Admitting Provider Hospitalist; Emergency Provider Emergency Medicine; PCP Family Medicine; Visit Provider Internal Medicine
DX: I63.89 Other cerebral infarction (principal); R20.2 Paresthesia of skin; R53.1 Weakness; Z87.891 Personal history of nicotine dependence; R29.702 NIHSS score 2; I10 Essential (primary) hypertension; E78.5 Hyperlipidemia, unspecified; I08.3 Combined rheumatic disorders of mitral, aortic and tricuspid valves
CPT/HCPCS: 36415; 70450; 70496; 70498; 70551; 80048; 80053; 80061; 82962; 83036; 85025; 85610; 85730; 92610; 93005; 93306; 94762; 97161; 97165; 99218; 99284; Q9967; A4216; G0378

== ENCOUNTER → 2022-08-01 | Outpatient (CLI) | payer MEDICARE, OTHER, SELFPAY ==
--- NOTE | 2022-08-01 12:11 | US_ITS ---
STUDY: ULTRASOUND - URINARY BLADDER REASON FOR EXAM: Male, 67 years old. Suprapubic mass. TECHNIQUE: Ultrasound evaluation of the urinary bladder was performed with real-time and static ford-scale imaging. COMPARISON: None. FINDINGS: There is no right UVJ calculus. There is a visualized right ureteral jet. There is no left UVJ calculus. There is a visualized left ureteral jet. The distended volume of the urinary bladder is 1714 ml. The empty volume of the urinary bladder is 1573 ml. The bladder wall is diffusely thickened. The bladder wall measures 4. There is no demonstrated bladder wall mass lesion. There are no demonstrated bladder calculi. US/Pelvic (Non ) IMPRESSION: Large post void residual. Mild diffuse thickening of the bladder. Electronically Signed: Rangel Murrell MD at 14:04 EDT ,
== END | disposition home or self-care (01) ==
LOC: US 12:09
PROVIDERS: PCP Family Medicine; Referring Provider Family Medicine; Visit Provider Family Medicine
DX: R19.09 Other intra-abdominal and pelvic swelling, mass and lump (principal)
CPT/HCPCS: 76856

== ENCOUNTER → 2022-08-04 | Outpatient (CLI) | payer MEDICARE, OTHER, SELFPAY ==
--- NOTE | 2022-08-04 08:55 | US_ITS ---
INDICATION: DISTENDED BLADDER EXAMINATION: Ultrasound US Abdomen Complete TECHNIQUE: Alvarez-scale and color Doppler imaging was performed of the abdomen. COMPARISON: None. FINDINGS: LIVER: There is normal echotexture. The liver measures about 16.3 cm in length. No focal lesions definitely seen. The portal vein is patent with normal hepatopedal flow. No intrahepatic biliary ductal dilatation. There is no free fluid. GALLBLADDER AND BILIARY TREE: No shadowing gallstone, pericholecystic fluid or gallbladder wall thickening is demonstrated. The proximal common bile duct measures 4.7 mm. The gallbladder wall measures 1.8 mm., SONOGRAPHIC LIANG''S SIGN: Negative. PANCREAS: The pancreas is not visualized. SPLEEN: The spleen is borderline in size measuring about 12.2 cm in length. KIDNEYS: There is no hydronephrosis. No shadowing calculus, focal lesion, or perinephric collection is demonstrated. The right kidney measures 10.8 cm in length. The renal cortex measures 1.9 cm. The left kidney measures 11 cm in length. The renal cortex measures 2 cm. VESSELS: No evidence of abdominal aortic aneurysm. The IVC is patent. US/Abdomen Complete IMPRESSION: No acute sonographic abnormality is demonstrated in the abdomen. Electronically Signed: Cameron Cutler MD at 15:01 EDT ,
== END | disposition home or self-care (01) ==
LOC: US 08:53
PROVIDERS: PCP Family Medicine; Visit Provider Family Medicine
DX: R19.09 Other intra-abdominal and pelvic swelling, mass and lump (principal)
CPT/HCPCS: 76700

== ENCOUNTER 2022-09-14 09:33 | Observation (INO) | payer MEDICARE, OTHER, SELFPAY ==
--- NOTE | 2022-09-11 09:15 | EKG12_ITS ---
Test Reason : PRE OP Blood Pressure : / mmHG Vent. Rate : 047 BPM Atrial Rate : 047 BPM P-R Int : 208 ms QRS Dur : 088 ms QT Int : 446 ms P-R-T Axes : 069 052 059 degrees QTc Int : 394 ms Sinus bradycardia Otherwise normal ECG Confirmed by WHITNEY PRICE, MICHELL ([id number]), film and video editor BENJAMIN LOBO ([id number]) on 09/12/2022 8:55:50 AM Referred By: Min Stout Confirmed By:MICHELL OLSON MD
[2022-09-11 10:14] LABS: Hemoglobin 14.4 g/dL (13.0-16.5); Mean Corp Hgb Conc 34.3 g/dL (32-36); Mean Corpuscular Hgb 30.8 pg (27.0-32.0); Mean Corpuscular Volume 89.7 fL (80-94); Mean Platelet Vol. 9.7 fl (6.2-12.0); Platelet Count 245 K/mm3 (150-450); RBC Distribution Width CV 12.2 % (11.6-14.6); Red Blood Count 4.68 M/mm3 (4.6-6.2); White Blood Count 6.5 K/mm3 (4.4-11.0)
[2022-09-11 10:44] LABS: Anion Gap 1 (5-15); BUN 15 mg/dL (7-18); BUN/Creat Ratio 15.8 RATIO (10-20); Calcium,Total 9.3 mg/dL (8.5-10.1); Chloride 105 mmol/L (98-107); Creatinine, Serum 0.95 mg/dL (0.70-1.30); EST Glomerular Filtration Rate 85 mL/min (>60); Est Glom Filt Rate - Afr Amer 102 mL/min (>60); Glucose 115 mg/dL (74-106); Potassium 4.1 mmol/L (3.5-5.1); Sodium Level 138 mmol/L (136-145)
[2022-09-14] VITALS (11 sets, daily range): BP systolic 112–141; BP diastolic 62–106; PULSE 62–85; RESP 15–18; TEMP 35.9–36.9; O2SAT 95–100; BMI 22.4
[2022-09-14] MEDS: Lactated Ringers 1,000 ML 15 ML IV ×2 (07:21→09:15)
[2022-09-14] MEDS: Cefazolin 2 GM in 0.9% Normal Saline 100 ML IV (08:07)
[2022-09-14] MEDS: Lubricating Jelly 60 GM Tube 30 GM (08:07)
--- NOTE | 2022-09-14 08:25 | PROS_PTH ---
PATIENT: QUOC SWEENEY LOC: [facility] U#:[id number] AGE/SX: 67/M ROOM: [facility] [place] RE09/14/[address]: Dr. Min Stout MD : 1955 BED: 1 DIS: 09/15/2022 SPEC #: [id number] RECD: 09/14/22 11:52 STATUS: EVELYNE SPARROW #: [id number] AIDE: 09/14/22 08:[address]: Min Stout DEPT: SURGICAL PATHOLOGY RECD BY: Romelia Marks ENTERED: 09/14/22 12:14 SP TYPE: TURP OTHR DR: Dr. José Miguel Montoya MD Tissues: Prostate, NOS Procedures: Surgery Specimen Level IV HEADER OPERATION: Cystoscopy, transurethral resection of prostate PRE-OP DIAGNOSIS: BPH with lower urinary tract symptoms, urinary retention TISSUE SUBMITTED: Prostate tissue MICROSCOPIC DIAGNOSIS Prostate, transurethral resection: Benign nodular hyperplasia, glandular and stromal types. Chronic inflammation. AM:yogi 09/17/2022 MICROSCOPIC DESCRIPTION Slides are reviewed. GROSS DESCRIPTION Received is one container labeled with the patient's name and designated prostate tissue. The specimen consists of multiple irregular fragments of pink-dhillon, rubbery, soft tissue that in aggregate weigh 27 gm and measure in aggregate 9 x 7 x 3 cm. Pharmaceutical Sales Specialist tissue is submitted in ten cassettes. / SJ:yogi 09/14/2022 TC:3 CPT: 56728
--- NOTE | 2022-09-14 09:34 | OP.PCM_ITS ---
Report of Operation Date of Procedure: 09/14/22 Pre-Operative Diagnosis: BPH with obstruction atonic stretched out bladder Post-Operative Diagnosis: Same Surgery/Procedure Performed:: TURP Description of Surgical Findings:: In the preoperative setting I discussed with the patient how the surgery would be done with expect afterwards. We discussed how a prostate resection is done and we discussed the risk of the surgery including, bleeding, infection, retrograde ejaculation, changes with ejaculation or intercourse,. We discussed the possibility that the resection of the prostate may not alleviate his urinary symptoms. We discussed the small risk of developing scar tissue along the urethral channel and strictures. We also discussed the chance of the prostate could grow back and he may need further surgery or treatment in the future for prostate problems. Patient was taken back to the operating room, timeout procedure was performed, he was identified and marked and placed on the operating room table. He underwent general anesthesia. He was placed in dorsolithotomy position. Penis and testicles were prepped and draped in usual sterile fashion. Went into the bladder using the visual obturator with a resectoscope. Once inside the bladder identified the right and left ureteral orifice. I then identified the prostate and the anatomy of the prostate. His bladder was extremely stretched out and a very large from chronic obstruction. Appeared to be an atonic bladder. I marked out the area of the sphincter and the verumontanum was identified. I then proceeded with the prostate resection first resected the median lobe. And then resected the right lobe of the prostate. Then to resect the left lobe of the prostate. I then resected the apical tissue of the prostate. This was a complete resection of all obstructive tissue to improve voiding and relieve obstruction. I then made sure that there was no injury to the sphincter or the verumontanum was still intact. At the end of the resection all the chips were Ellik out of the bladder. I then identified the left and right ureteral orifice and these were confirmed to be in good position and effluxing and not injured. The resectoscope was removed, a 22 Tamazight catheter was placed into the bladder on continuous irrigation. And the urine was fairly light pink color and draining normally. He was taken back to the PACU in good condition. CPT 68439 Surgeon: Min Stout Type of Anesthesia: General Drains: [address] Admit VTE Documentation VTE Present on Admission: No VTE Mechan Device Prophylaxis: SCD's
--- NOTE | 2022-09-14 09:34 | DCINST_ITS ---
Discharge Instructions Diet Discharge Diet: No restrictions, Light diet - advance as tolerated and Soft diet Activity Discharge Activity: Return to Normal Activity Lifting Restrictions: no heavy lifting x 2 weeks Follow Up Care Please Follow Up With: Min Stout MD Test Results: Test results from this visit will be discussed in further detail at your follow- up appointment, if applicable. Discharge Plan Admission Primary Reason for Your Visit: turp Attending Provider: Min Stout Primary Care Provider: José Miguel Montoya Discharge Orders/Prescriptions Prescriptions: New ciprofloxacin HCl [Cipro] 500 mg tablet 500 mg PO BID Qty: 10 0RF Continued atorvastatin 40 MG tablet 40 mg PO QHS Qty: 30 0RF omeprazole 20 mg capsule,delayed release(DR/EC) 20 mg PO DAILY Held aspirin 81 MG tablet,chewable 81 mg PO DAILY@0800 Qty: 30 1RF Hold Instructions: Resume on 09/28/22. Other Ambulatory Orders: 12 Lead EKG (Routine) Timeframe: [id number] Location: None Selected Ordered By: Dr. Jesus Villatoro Referrals / Follow Up: José Miguel Montoya MD [Primary Care Provider] - Min Stout MD [Med Staff - Active Staff] - Disposition Disposition (needs filled in before D/C Order can be placed): Home, Self Care
[2022-09-14] MEDS: Lactated Ringers 1,000 ML 125 ML IV ×2 (11:19→16:06)
--- NOTE | 2022-09-14 11:22 | NURSING ---
Pt came to floor with CBI running on bag #3 which was half full. There is no documentation on the CBI paper for bag #2 except 2400. Will monitor.
[2022-09-14] MEDS: Ciprofloxacin 400 MG/200 ML BAG 200 MG IV (16:05)
--- NOTE | 2022-09-14 16:17 | NURSING ---
Dangled feet, sat at edge of bed for few minutes then assisted into chair. Sitting in chair at this time. Call light in reach. Bedside table in front of pt
[2022-09-14] MEDS: Atorvastatin Calcium 40 MG Tablet PO (20:40)
[2022-09-14] MEDS: Docusate Sodium 100 MG Capsule 200 MG PO (20:40)
[2022-09-15] MEDS: Lactated Ringers 1,000 ML 125 ML IV (01:03)
[2022-09-15 02:40] VITALS: BP 110/68; PULSE 63; RESP 16; TEMP 36.5; O2SAT 95
[2022-09-15] MEDS: Ciprofloxacin 400 MG/200 ML BAG 200 MG IV (04:34)
[2022-09-15 08:40] VITALS: BP 112/71; PULSE 87; RESP 18; TEMP 36.7; O2SAT 96
--- NOTE | 2022-09-15 08:46 | PCM.PN.GU ---
Subjective Subjective urine clear, d/c varghese he can go home after is able to void. Objective Data Objective Data Vital Signs: Vital Signs Temp Pulse Resp BP Pulse Ox O2 Del Method 97.7 F L 63 16 110/68 95 Room Air 09/15/22 02:40 09/15/22 02:40 09/15/22 02:40 09/15/22 02:40 09/15/22 02:40 09/15/22 02:40 Oxygen Delivery Method Room Air Weight: 77.2 kg Body Mass Index (BMI) 22.4 Intake & Output: Intake and Output for Last 24 Hours 09/13/22 09/14/22 09/15/22 23:59 23:59 23:59 Intake Total 3844.34 / 3844.34 1425 / 1425 Output Total 4650 / 4650 1200 / 1200 Balance -805.66 / -805.66 225 / 225 Lab / Micro Data Result Diagrams: 09/11/22 09:23 09/11/22 09:23
[2022-09-15 08:47] VITALS: BP 138/69; PULSE 70; RESP 18; TEMP 36.7; O2SAT 98
--- NOTE | 2022-09-15 13:17 | NURSING ---
pt voids 400 cc clear urine with no clots-pt iv dc'd and given d/c info
--- NOTE | 2022-09-19 15:47 | PCM.HP.STD ---
HPI - General General Date of Admission: 09/14/22 HPI Narrative QUOC SWEENEY, is a 67 M who presents for transurethral resection of the prostate does not make up H&P [facility] Medical History (Updated 09/07/22 @ 10:23 by Laura Arvizu) Former smoker Gastric reflux Heartburn High cholesterol History of echocardiogram (~04/02/20) Patient denies significant medical history Prostate disease Wears glasses Home Medications aspirin 81 mg chewable tablet 81 mg PO DAILY@0800 ##30 04/02/20 [Rx Last Taken Unknown] atorvastatin 40 mg tablet 40 mg PO QHS #30 tabs 04/03/20 [Rx Last Taken Unknown] omeprazole 20 mg capsule,delayed release 20 mg PO DAILY 09/07/22 [History Last Taken 09/14/22] ciprofloxacin HCl 500 mg tablet (Cipro) 500 mg PO BID #10 tabs 09/14/22 [Rx Last Taken Unknown] Allergy/AdvReac Type Severity Reaction Status Date / Time No Known Allergies Allergy Verified 09/14/22 07:17 Surgical History (Updated 09/07/22 @ 10:23 by Laura Arvizu) History of hernia surgery (~1979) History of wisdom tooth extraction Social History Smoking Status: Former smoker Vital Signs Vital Signs Vital Signs: Weight Weight: 77.2 kg Body Mass Index (BMI) 22.4 Results Lab / Micro Data Result Diagrams: 09/11/22 09:23 09/11/22 09:23
== END 2022-09-15 13:47 | disposition home or self-care (01) ==
LOC: MS3 17:41
PROVIDERS: Anesthesiology; Admitting Provider Urology; PCP Family Medicine; Referring Provider Urology; Visit Provider Urology
PROC: 0VT08ZZ Resection of Prostate, Via Natural or Artificial Opening Endoscopic (ICD-10-PCS; CPT 52601; principal; 2022-09-14 08:15)
DX: N40.1 Benign prostatic hyperplasia with lower urinary tract symptoms (principal); E78.00 Pure hypercholesterolemia, unspecified; Z87.891 Personal history of nicotine dependence; Z79.82 Long term (current) use of aspirin; K21.9 Gastro-esophageal reflux disease without esophagitis; Z79.899 Other long term (current) drug therapy; N13.8 Other obstructive and reflux uropathy; R33.8 Other retention of urine
CPT/HCPCS: 52601; 00914; 36415; 80048; 85027; 88305; 93005; 96361; 96365; 96366; 99218; 99251; 99252; J7120; G0378; G0463; J0744; J2405

== ENCOUNTER → 2023-01-28 | Outpatient (CLI) | payer MEDICARE, OTHER, SELFPAY ==
[2023-01-28 11:43] LABS: PSA,Total - Annual Screen 1.09 ng/mL (0.00-4.00)
== END | disposition home or self-care (01) ==
LOC: LAB 10:06
PROVIDERS: PCP Family Medicine; Referring Provider Urology; Visit Provider Urology
DX: Z12.5 Encounter for screening for malignant neoplasm of prostate (principal)
CPT/HCPCS: 36415; 84153; G0103

== ENCOUNTER 2025-07-16 05:48 | Day surgery (SDC) | payer MEDICARE, OTHER, SELFPAY ==
[2025-07-16] VITALS (9 sets, daily range): BP systolic 103–136; BP diastolic 59–75; PULSE 54–63; RESP 12–18; TEMP 36.2–36.6; O2SAT 95–97; BMI 21.8
[2025-07-16] MEDS: Lactated Ringers 1,000 ML 15 ML IV (06:36)
--- NOTE | 2025-07-16 07:02 | PCM.PRE.AN2 ---
ASA Classification* ASA Classification ASA Classification: 2 Assessment & Plan Anesthesia* Anesthesia Assessment Anesthesia Assessment: Discussed sedation and/or anesthesia options, risks, benefits, and alternatives with patient/parents/legal guardian/POA. Questions invited. The patient/parents/legal guardian/POA seems to understand and agrees to proceed with anesthesia plan. Reviewed the physical assessment, medical history, allergy history and patient home medications list prior to surgery/procedure/anesthetic and documented any changes. Performed airway and anesthesia risk assessments. Anesthesia Type Anesthesia Type: MAC History Source History Obtained from:: Patient and Chart Anesthesia Focused Assessment* Temperature: 97.8 F Pulse Rate: 57 Blood Pressure: 136/69 Respiratory Rate: 18 Pulse Ox: 97 Oxygen Delivery Method: Room Air Airway Assessment Mouth opens: >3 cm Mallampati Score: I Teeth Condition: Caps/Crowns (Patient has several crowns. They are all tight.) Neck Range of motion (ROM): Limited ROM (Somewhat Decreased) Labs Anesthesia Preop lab: CBC WBC, (4.4-11.0) 6.5 K/mm3 09/11/22, RBC, (4.6-6.2) 4.68 M/mm3 09/11/22, : Hgb, (13.0-16.5) 14.4 g/dL 09/11/22, Hct, (40-54) 42.0 % 09/11/22, Plt Count, (150-450) 245 K/mm3 09/11/22, : CHEMISTRY Potassium, (3.5-5.1) 4.1 mmol/L 09/11/22, Sodium, (136-145) 138 mmol/L 09/11/22, : BUN, (7-18) 15 mg/dL 09/11/22, : Creatinine, (0.70-1.30) 0.95 mg/dL 09/11/22, Glucose, (74-106) 115 mg/dL H 09/11/22, : POC Glucose, (70-110) 124 mg/dL H 04/01/20, 19:20 COAG PT, (11.7-14.9) 12.9 SECONDS 04/01/20, 19:20 Pre-Assessment Diagnosis/Proposed Procedure Planned Operative Procedure(s): (R) Excision of right leg melanoma with application of theraskin Anesthesia History Anesthesia History - campus rep: Anesthesia History - campus rep Hx Hospitalization No 07/14/25 09:47 Any Problems With Anesthesia No 07/14/25 09:47 Cholinesterase deficiency No 07/14/25 09:47 You/Your Family Experience No 07/14/25 09:47 fever (hyperthermia) with Relationship Recent Exposure to Contagious No 07/16/25 06:21 Disease Does patient have nerve No 07/14/25 09:47 stimulator Patient instructed to have device shut off --Does patient have Pacemaker No 07/16/25 06:21 or ICD? When Was Last Pacemaker Check QUESTION #4 FULL TEXT: You/Your Family Experience fever (hyperthermia) with Anesthesia Last Oral Intake Last Oral intake: Last Oral Intake NPO since 04:30 07/16/25 06:21 Meds taken in AM with sips of Yes 07/16/25 06:21 water? Meds patient instructed to omeprazole 07/16/25 06:21 take am of surgery Any additional information?: Yes NPO since: 04:30 (Patient had black coffee and water at 4:30 AM.) Meds taken in AM with sips of water?: Yes PONV PONV - campus rep: PONV - campus rep Female No 07/13/25 15:08 HX of Motion Sickness No 07/13/25 15:08 HX of N/V After Surgery No 07/13/25 15:08 Non-Smoker Yes 07/13/25 15:08 Duration of Surgery greater No 07/13/25 15:08 than 60 minutes Number of Risk Factors 1 07/13/25 15:08 PONV Score Low Risk 07/13/25 15:08 Height & Weight Height & Weight: Anesthesia: Height & Weight Height 6 ft 1 in 07/16/25 06:21 Weight: 75 kg 07/16/25 06:21 Body Mass Index (BMI) 21.8 07/16/25 06:21 Respiratory Assessment Respiratory Assessment - campus rep: Respiratory Tract Infection Hx - campus rep Hx Respiratory Tract Infection No 07/14/25 09:47 STOP Sleep Apnea STOP Sleep Apnea - campus rep: STOP Sleep Apnea - campus rep Hx Hypertension No 07/14/25 09:47 Hx Sleep Apnea No 07/14/25 09:47 CPAP No 07/14/25 09:47 BIPAP Do you snore loudly (louder No 07/13/25 15:08 than talking or can be heard Do you often feel tired/ No 07/13/25 15:08 fatigued/ sleepy during daytime? Has anyone observed you stop No 07/13/25 15:08 breathing during sleep? STOP Results Negative 07/13/25 15:08 QUESTION #5 FULL TEXT : Do you snore loudly (louder than talking or can be heard through closed doors)? 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 Specify any problems Hx of Preganancy in last 3 N/A 07/13/25 15:08 Months Nurse Filling Out Transfusion NBUCHER 07/13/25 15:08 & Questions: Date: 07/13/25 07/13/25 15:08 Time: 15:09 07/13/25 15:08 Patient unable to answer at this time (ie. confused, unrespo /Reproduction History /Reproductive History - campus rep: /Reproductive Hx- campus rep Hx Now No 07/13/25 15:08 Gestational Age (in weeks): EDC: Hx Hx Para Hx Section SAB No 07/14/25 09:47 Active Medications Active Medications: Current Medications Generic Name Dose Route Start Last Admin Trade Name Freq PRN Reason Stop Dose Admin Cefazolin Sodium 2 gm/ Sodium 110 mls @ 200 mls/hr 07/16/25 07:30 Chloride IV 07/16/25 08:02 INTRAOP ONE Lactated Ringer's 1,000 mls @ 15 mls/hr 07/16/25 06:15 07/16/25 06:36 IV 15 mls/hr .Q48H LESLIE Administration PFSH Medical History Non-smoker Wears glasses Prostate disease High cholesterol Heartburn Gastric reflux Former smoker History of echocardiogram (04/02/20) Patient denies significant medical history Home Medications ?Medication ?Instructions ?Recorded ?Last Taken ?Type aspirin 81 mg chewable tablet 81 mg PO DAILY@0800 ##30 04/02/20 07/15/25 Rx atorvastatin 40 mg tablet 40 mg PO QHS #30 tabs 04/03/20 07/13/25 Rx omeprazole 20 mg capsule,delayed 20 mg PO DAILY 09/07/22 07/16/25 History release Allergy/AdvReac Type Severity Reaction Status Date / Time bee venom protein (honey Allergy Severe Anaphylaxis Verified 07/16/25 06:20 bee) (bee sting) Surgical History S/P TURP (09/14/22) History of wisdom tooth extraction History of hernia surgery (~1979) Social History Smoking Status: Former smoker how long ago did patient quit smokin years ago substance use type: marijuana additional social history: pt denies vaping, pt uses marijuana, uses edibles, take daily aspirin and uses ibuprofen Denies blood disorder, pt reports had a stroke. Review of Systems (Anesthesia) ROS Narrative System reviewed and no additional complaints, except as documented.
--- NOTE | 2025-07-16 07:09 | PCM.HP.STD ---
HPI - General HPI Narrative QUOC SWEENEY, is a 70 M who presents today for melanoma excision of right lower extremity with Dr. Cardenas. The patient is a 69-year-old male presenting with a melanoma on the right proximal calf. Patient initially noticed a wartlike lesion in the right proximal calf for about 4 months which was subsequently biopsied by Dr. Marsh international banker. Biopsy showed melanoma with a Breslow depth of 0.6 mm. There was reportedly no ulceration and there was <1 mitotic rate and no lymphatic spread on the shave biopsy (T1A lesion). Past medical history significant for hyperlipidemia, history of stroke 5 years ago with no residual deficits. He is on aspirin, statin. The patient has a history of a stroke five years ago, attributed to hyperlipidemia, with no residual deficits reported. He is currently on aspirin and a statin for cholesterol management. He denies changes in his medical health and changes to his medications. He denies fever, chills, urinary symptoms, rashes, dental infection. [facility] Medical History (Updated 07/16/25 @ 07:21 by ROSI Champion) Malignant melanoma of right lower extremity Non-smoker Wears glasses Prostate disease High cholesterol Heartburn Gastric reflux Former smoker History of echocardiogram (04/02/20) Patient denies significant medical history Home Medications ?Medication ?Instructions ?Recorded ?Last Taken ?Type aspirin 81 mg chewable tablet 81 mg PO DAILY@0800 ##30 04/02/20 07/15/25 Rx atorvastatin 40 mg tablet 40 mg PO QHS #30 tabs 04/03/20 07/13/25 Rx omeprazole 20 mg capsule,delayed 20 mg PO DAILY 09/07/22 07/16/25 History release Allergy/AdvReac Type Severity Reaction Status Date / Time bee venom protein (honey Allergy Severe Anaphylaxis Verified 07/16/25 06:20 bee) (bee sting) Surgical History S/P TURP (09/14/22) History of wisdom tooth extraction History of hernia surgery (~1979) Social History Smoking Status: Former smoker how long ago did patient quit smokin years ago substance use type: marijuana additional social history: pt denies vaping, pt uses marijuana, uses edibles, take daily aspirin and uses ibuprofen Denies blood disorder, pt reports had a stroke. Vital Signs Vital Signs Vital Signs: 07/16/25 06:21 07/16/25 06:21 07/16/25 07:07 Temperature 97.8 F 97.8 F Temperature Source Temporal Pulse Rate 57 L 57 L Respiratory Rate 18 18 Respiratory Pattern Normal Blood Pressure 136/69 H 136/69 H Blood Pressure Mean 91 Blood Pressure Source Monitor Blood Pressure Position Semi-Fowlers Blood Pressure Location Left Arm Pulse Ox 97 97 Oxygen Delivery Method Room Air Room Air Weight Weight: 165 lb 5.547 oz Body Mass Index (BMI) 21.8 Physical Exam Narrative Afebrile/VSS. Lying in bed in no acute distress. - Skin: Examination of the right proximal medial posterior calf revealed healing skin/scab at the biopsy site (correct site confirmed with patient and consistent with notes) - Lymphatic: No inguinal or popliteal lymphadenopathy detected - No respiratory wheezing, increased effort or accessory muscle use noted. Abdomen soft, nontender in all 4 quadrants. - Moves right lower extremity spontaneously and smoothly grossly to normal strength - Sensation intact to light touch. Assessment & Plan Assessment/Plan (1) Malignant melanoma of right lower extremity: PLAN: Presents today for wide local excision with 1 cm margins. Ancef for periop antibitoics. Plan for DC same day.
--- NOTE | 2025-07-16 07:30 | LES_PTH ---
PATIENT: QUOC SWEENEY LOC: [facility] [place] U#:[id number] AGE/SX: 70/M ROOM: RE07/16/[address]: Dr. Geraldo Cardenas MD : 1955 BED: DIS: 07/16/2025 SPEC #: [id number] RECD: 07/16/25 09:08 STATUS: EVELYNE REPaul #: [id number] AIDE: 07/16/25 07:[address]: Geraldo Cardenas DEPT: SURGICAL PATHOLOGY RECD BY: Pedro Siddiqi ENTERED: 07/16/25 10:56 SP TYPE: Lesion OTHR DR: [facility] Tissues: A - Skin of leg, NOS Procedures: Surgery Specimen Level IV HEADER OPERATION: Excision of right leg melanoma with application of theraskin PRE-OP DIAGNOSIS: Malignant melanoma of skin TISSUE SUBMITTED: A- Right proximal calf, wide local incision melanoma *1 stitch- 12o'clock (proximal), 2 stitches - 3o'clock, 3 stitches- 6o'clock* MICROSCOPIC DIAGNOSIS A. Skin, right proximal calf, melanoma, wide local excision: * No residual malignant melanoma observed. * Scar and associated reactive changes consistent with a previous surgical procedure. COMMENT The prior pathology report from [facility] is noted ([id number]). MICROSCOPIC DESCRIPTION Slides are reviewed. GROSS DESCRIPTION A. Received in formalin labeled with the patient's name and date of . Designated as right proximal calf wide local incision melanoma is a 3.2 x 2.8 cm dhillon skin ellipse with a blue surgical markings along the periphery and excised to a maximum depth of 0.5 cm. The specimen is oriented as follows: Single suture: designated as 12:00 (proximal).Double suture: designated as 3:00.Triple suture: designated as 6:00. There is a 0.6 x 0.3 cm hypopigmented and centrally erythematous scar, located the following distances from the margins:12:00: 1.0 cm 3:00: 1.2 cm 6:00: 1.3 cm9:00: 1.5 cmDeep: 0.4 cm Ink carter: 12:00 to 3:00: Green3:00 to 6:00: Yellow6:00 to 9:00: Orange9:00 to 12:00: BlueDeep: Black The specimen is serially sectioned from 3:00 to 9:00, and entirely submitted, sequentially in 7 cassettes, to include at the scar in cassettes A3-A4. [facility] 07/16/2025 CPT:79517
[2025-07-16] MEDS: Cefazolin 1 GM/5 ML Vial 2 GM IV (08:08)
[2025-07-16] MEDS: Lidocaine 1% (5 ml sdv) 5 ML Vial IV (08:09)
[2025-07-16] MEDS: fentaNYL 100 MCG/2 ML Ampul IV (08:37)
[2025-07-16] MEDS: Lidocaine 1% /Epi 1:100 (20ml) 20 ML Vial (08:40)
[2025-07-16] MEDS: Bupiv/Epi 0.25% 30 ML Vial (08:40)
--- NOTE | 2025-07-16 08:49 | OP.PCM_ITS ---
Problems Associated Problem List Diagnoses (1) Malignant melanoma of right lower extremity: Operative Report (Standard) Operative Information Date of Procedure: 07/16/25 Pre-Operative Diagnosis: Right proximal posterior calf melanoma, Breslow depth 0.6 Post-Operative Diagnosis: Same Surgery/Procedure Performed: 1) wide local excision of right proximal posterior calf melanoma for margins (1 cm circumferential margins), 3.8 x 3.8 cm 2) dermal substitute placement, 3.8 x 3.8 cm order checker packer processer: Yes Chopper Gun Operator: Mildred Lord Tasks completed by nurse first assist: Closing Type of Anesthesia: Local MAC (10 cc of 50-50 mixture of 1% lidocaine with 1- 200,000 epinephrine and quarter percent Marcaine with 1-200,000 epinephrine) RN Documented Start/Stop Times: Operation Date: 07/16/25 07:30 Case Time Into Pre-Op 07/16/25 06:02 Out of Pre-Op 07/16/25 07:56 Anesthesia Start 07/16/25 08:02 Into Room 07/16/25 08:02 Procedure Start 07/16/25 08:19 Procedure End 07/16/25 08:43 Anesthesia End 07/16/25 08:47 Out of Room 07/16/25 08:47 Procedure Start Time: 08:17 Procedure Stop Time: 08:43 Select all DRAINS/GRAFTS/IMPLANTS that apply: Tissue (Cadaver allograft) Tissue details: There is skin cadaver allograft for temporary dressings while waiting margins Estimated Blood Loss: 5 cc Specimen collected: Yes Description of specimen(s) removed: The melanoma was sent to pathology with 1 stitch proximal at 12:00, 2 stitches at 3:00, and 3 stitches at 6 o'clock position (distal). Description of surgery: Indications: Jose Carrillo is a delightful 70-year-old male with a biopsy-proven (shave biopsy) malignant melanoma of the right proximal posterior calf. The site was identified with the patient and confirmed (I marked him in preoperative holding with him and his in agreement with the site marking which was consistent with the pathology report and the note from Louis Marsh), and he agreed for wide local excision with 1 cm margins for a 0.6 mm Breslow depth melanoma (down to fascia). Patient understood the risks of bleeding, infection, damage to surrounding structures including cutaneous nerves with persistent numbness, wound healing complications, and failure to obtain the desired result which is clearance of the melanoma. I talked him about temporary dressing placement while we await permanent margins (followed by skin graft). Patient elected to proceed. Procedure details: Patient was taken back to the operating room he was administered sedation and th e above-noted local solution. He was prepped and draped in sterile fashion and a proper timeout was performed. 15 blade scalpel was used to excise circumferential margins around the lesion (1 cm around the scar) for a total excision of 3.8 x 3.8 cm. The melanoma was sent to pathology with 1 stitch proximal at 12:00, 2 stitches at 3:00, and 3 stitches at 6 o'clock position (distal). Hemostasis obtained with Bovie electrocautery. The excision was down through the underlying fascia for complete full-thickness excision down to the muscle. A piece of cadaver allograft was sutured into place under a bolster for 3.8 x 3.8 cm dermal substitute placement (Vicryl sutures and Xeroform and gauze). Patient tolerated the procedure well. He was awakened taken the PACU in stable condition Postoperative plan: Keep the bolster dry until we have permanent margins and then we will take the patient back to the operating room for either skin graft or further excision. Surgical Findings: Too much tension for primary closure and therefore decision was made to place cadaver allograft Complications Complications: No
--- NOTE | 2025-07-16 08:51 | PCM.POST.ANE ---
Anesthesia: Postop Eval I Current Vital Signs Temperature: 97.1 F Pulse Rate: 63 Blood Pressure: 103/66 Respiratory Rate: 12 Pulse Ox: 96 Oxygen Delivery Method: Room Air Assessment Airway patent: Yes Spontaneous unlabored respirations: Yes Mental status: Awake and Calm nausea: No Vomiting: No Anesthesia Complication: No Fluid Hydration Crystalloid volume administer (ml): 800 Total IV fluid infused: 800 Progress Note Anesthesia document: Postop Eval 1 completed: Yes
--- NOTE | 2025-07-16 11:59 | POSTOPAN2_ITS ---
Anesthesia Postop Eval I Sum Postop Eval Completion status Anesthesia document: Postop Eval 1 completed: Yes Anesthesia Postop Eval I Summary Anesthesia Postop Eval I Summary: Anesthesia Postop Eval I: Assessment Summary Airway patent Yes 07/16/25 08:51 HEALTH CARE ASSISTANT.[email or web address] Spontaneous unlabored Yes 07/16/25 08:51 HEALTH CARE ASSISTANT.SHOF respirations Mental status Awake,Calm 07/16/25 08:51 HEALTH CARE ASSISTANT.SHOF nausea No 07/16/25 08:51 HEALTH CARE ASSISTANT.SHOF Vomiting No 07/16/25 08:51 HEALTH CARE ASSISTANT.SHOF Anesthesia Postop Eval I: Fluid Summary Crystalloid volume administer 800 07/16/25 08:51 HEALTH CARE ASSISTANT.SHOF (ml) Colloids volume administered ( ml) Blood Product volume administered (ml) Total IV fluid infused 800 07/16/25 08:51 HEALTH CARE ASSISTANT.SHOF Anesthesia Postop Eval I: Summary Notes Anesthesia Complication No 07/16/25 08:51 HEALTH CARE ASSISTANT.SHOF Anesthesia Complication Comment: Post-operative progress note Anesthesia: Postop Eval II Evaluation Mental status: Awake and Calm Pain Level: 0 nausea: No Vomiting: No Complications Anesthesia Complication: No
--- NOTE | 2025-07-16 11:59 | PCM.POSTANE2 ---
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 Spontaneous unlabored Yes 07/16/25 08:51 ST[employer] BROKER SUPERVISOR.SHOF respirations Mental status Awake,Calm 07/16/25 08:51 STOCK BROKER SUPERVISOR.SHOF nausea No 07/16/25 08:51 STOCK BROKER SUPERVISOR.SHOF Vomiting No 07/16/25 08:51 STOCK BROKER SUPERVISOR.SHOF Anesthesia Postop Eval I: Fluid Summary Crystalloid volume administer 800 07/16/25 08:51 STOCK BROKER SUPERVISOR.SHOF (ml) Colloids volume administered ( ml) Blood Product volume administered (ml) Total IV fluid infused 800 07/16/25 08:51 STOCK BROKER SUPERVISOR.SHOF Anesthesia Postop Eval I: Summary Notes Anesthesia Complication No 07/16/25 08:51 STOCK BROKER SUPERVISOR.SHOF Anesthesia Complication Comment: Post-operative progress note Anesthesia: Postop Eval II Evaluation Mental status: Awake and Calm Pain Level: 0 nausea: No Vomiting: No Complications Anesthesia Complication: No
== END 2025-07-16 10:09 | disposition home or self-care (01) ==
LOC: SDC 05:51 → AC 05:51
PROVIDERS: Referring Provider Surgery Plastic and Reconstructive Surgery; Visit Provider Surgery Plastic and Reconstructive Surgery
PROC: (CPT 11604; principal; 2025-07-16 07:20)
DX: C43.71 Malignant melanoma of right lower limb, including hip (principal); E78.00 Pure hypercholesterolemia, unspecified; K21.9 Gastro-esophageal reflux disease without esophagitis; Z79.82 Long term (current) use of aspirin; Z87.891 Personal history of nicotine dependence; Z79.899 Other long term (current) drug therapy
CPT/HCPCS: 11604; 15271; 00400; 88307

== ENCOUNTER 2025-07-23 05:48 | Day surgery (SDC) | payer MEDICARE, OTHER, SELFPAY ==
[2025-07-23] VITALS (8 sets, daily range): BP systolic 93–151; BP diastolic 66–80; PULSE 55–66; RESP 12–18; TEMP 36.1–36.4; O2SAT 94–98; BMI 21.8
--- OUTSIDE RECORDS SUMMARY | 2025-07-23 05:50 | XMS RPT_ITS | CCD ---
Author Organization [facility] ion [facility] Care Team Providers Care Electric Lineman Name Role Phone Vipul Stern Admitting Unavailable Vipul Stern Attending Unavailable No Doctor Assigned, Nodr Primary Care Unavail able MICHELL STEWART Referring Unavailable MARI MONTOYA Primary Care Unavailable Spieldenner AMAURY, Laureen Meraz Primary Care Provide r Nicolas Jimenez CNP Primary Care Provider NICOLAS JIMENEZ Attending Unavailabl e BARBARANICOLAS Primary Care Unavailabl e EMILY, LAUREEN MERAZ Attending Unavaila ble SPIELDENNELAUREEN Rivera Primary Care Unavaila ble SPIELDENNENicole, LAUREEN MERAZ Primary Care Unavaila ble SPIJANENNELAUREEN Rivera Attending Unavaila Dr. Geraldo Lopez MD Attending Physician [phone] Geraldo Cardenas Referring Unavailable Mildred Lord Attending [facility], [place] Primary Care Unavailable Geraldo Cardenas Consulting Unavailable Geraldo Cardenas Attending Unavailable Geraldo Cardenas Referring [place], [place] Primary Care [facility], [place] Primary Care Unavailable Geraldo Cardenas Attending Unavailable Geraldo Cardenas Attending Unavailable Allergies Allergy Classification Reported Allergen(s) Allergy Type Date of Onset Reaction(s) Facility (1 source) No Known Medication Allergies; Translations: [No Known Medication Allergies] Propensity to adverse reactions to drug (disorder) [facility] Repository (1 source) bee venom protein (honey bee) Drug allergy (disorder) [address] [facility] Repository Medications Current Medications Medication Drug Class(es) Dates Sig (Normalized) Sig (Original) aspirin 81 mg chewable tablet (14 sources) Platelet Aggregation Inhibitor, Nonsteroidal Anti-inflammatory Drug Start: 04-02-2020 take 1 tablet by mouth once daily Aspirin 81 MG tablet,chewable Active 81 mg PO DAILY@0800 30 April 02, 2020 12:00am On Hold: Resume on 09/28/22. Complies with drug therapy take 1 tablet by mouth once narendra y aspirin 81 MG EC tablet Take 1 (one) tablet (81 mg total) by mouth daily . Active atorvastatin 40 mg oral tablet (17 sources) HMG-CoA Reductase Inhibitor Start: 04-03-2020 End: 03-04-2025 take 1 tablet by mouth once daily atorvastatin (LIPITOR) 40 MG tablet Indications: Mixed hyperlipidemia Take 1 (one) tablet (40 mg total) by mouth daily . 100 tablet 3 03/04/2025 Active clopidogrel 75 mg oral tablet (2 sources) P2Y12 Platelet Inhibitor Start: 04-02-2020 take 75 mg by mouth once daily Clopidogrel Active 75 MG PO DAILY April 02, 2020 12:00am lisinopril 10 mg oral tablet (2 sources) Angiotensin Converting Enzyme Inhibitor Start: 04-02-2020 take 10 mg by mouth once daily Lisinopril Active 10 MG PO DAILY April 02, 2020 12:00am Hold if SBP Completed/Discontinued Medications Medication Drug Class(es) Dates Sig (Normalized) Sig (Original) ciprofloxacin 500 mg oral tablet (3 sources) Quinolone Antimicrobial Start: 09-14-2022 End: 07-01-2025 take 1 tablet by mouth twice daily Ciprofloxacin Hcl (Cipro) 500 mg tablet Discontinued 500 mg PO TWICE A DAY 10 September 14, 2022 1:00am July 01, 2025 10:29am omeprazole 20 mg delayed release oral capsule (17 sources) Proton Pump Inhibitor Start: 03-12-2024 End: 04-14-2025 take 1 capsule by mouth twice daily omeprazole (PRILOSEC) 20 MG capsule Indications: Gastroesophageal reflux disease, unspecified whether esophagitis present Take 1 (one) capsule (20 mg total) by mouth 2 (two) times a day . 90 capsule 3 04/17/2024 04/14/2025 Discontinued (Reorder (Suppress CancelRx Message to Pharmacy)) Start: 09-07-2022 End: 03-12-2024 take 1 capsule by mouth once daily omeprazole (PRILOSEC) 20 MG capsule Indications: Gastroesophageal reflux disease, unspecified whether esophagitis present Take 1 (one) capsule (20 mg total) by mouth daily . 90 capsule 3 12/11/2023 03/12/2024 Discontinued (Reorder (Suppress CancelRx Message to Pharmacy)) End: 12-11-2023 omeprazole (PRILOSEC) 40 MG capsule Take 20 mg by mouth daily . 0 12/11/2023 Discontinued (Reorder (Suppress CancelRx Message to Pharmacy)) Problems Active Problems Problem Classification Problem Date Documented Date Episodic/Chronic Acute cerebrovascular disease (15 sources) Cerebrovascular accident; Translations: [Cerebral infarction, unspecified] Onset: 12-11-2023 Resolved: 12-11-2023 04-01-2020 Chronic Disorders of lipid metabolism (16 sources) Mixed hyperlipidemia; Translations: [Mixed hyperlipidemia] Onset: 12-11-2023 12-11-2023 Chronic Esophageal disorders (17 sources) Gastroesophageal reflux disease; Translations: [Gastro-esophageal reflux disease without esophagitis] Onset: 12-11-2023 12-11-2023 Chronic Essential hypertension (2 sources) Hypertensive disorder Onset: 12-21-2024 Chronic Hyperplasia of prostate (13 sources) Benign prostatic hyperplasia; Translations: [Benign prostatic hyperplasia without lower urinary tract symptoms] Onset: 12-11-2023 12-11-2023 Chronic Melanomas of skin (3 sources) Malignant melanoma of skin; Translations: [Malignant melanoma of skin, unspecified] Onset: 07-16-2025 07-01-2025 Chronic Other ear and sense organ disorders (1 source) Impacted cerumen of bilateral ears; Translations: [Impacted cerumen, bilateral] 03-12-2024 Episodic Other injuries and conditions due to external causes (1 source) At low risk for fall; Translations: [History of falling] 03-12-2024 Episodic Transient cerebral ischemia (10 sources) Transient cerebral ischemia; Translations: [Transient cerebral ischemic attack, unspecified] Onset: 12-11-2023 12-11-2023 Chronic Past or Other Problems Problem Classification Problem Date Documented Da te Episodic/Chronic Mood disorders (10 sources) Mood disorders Onset: 03-10-2024 Resolved: 03-12-2024 03-10-2024 Other circulatory disease (11 sources) Elevated blood-pressure reading without diagnosis of hypertension; Translations: [Elevated blood-pressure reading, without diagnosis of hypertension] Onset: 12-11-2023 Resolved: 12-21-2024 12-11-2023 Episodic Other circulatory disease (2 sources) Elevated blood-pressure reading, without diagnosis of hypertension; Translations: [Elevated blood-pressure reading, without diagnosis of hypertension] Onset: 12-11-2023 Episodic Other ear and sense organ disorders (2 sources) Impacted cerumen, bilateral; Translations: [Impacted cerumen, bilateral] Onset: 03-12-2024 Episodic Other injuries and conditions due to external causes (2 sources) History of falling; Translations: [History of falling] Onset: 03-12-2024 Episodic Screening and history of mental health and substance abuse codes (3 sources) Tobacco use and exposure - finding; Translations: [Personal history of nicotine dependence] Onset: 03-12-2024 03-12-2024 Episodic Results Test Name Value Interpretation Reference Range Facility MR/POSTOP.[facility] 07-16-2025 MR/POSTOP.[facility] Medical Records Department [address] [address] Anesthesia Postop Eval I 07/16/25850 MR#: [id number] Acct: [id number] Name: PATELJOSE KEENAN Rep #: [id number] : 1955 70 From: Kory Beasley CRNA PCP: [facility] Status:REG SDC Y Race: C Location: [place] [address] Anesthesia: Postop Eval I Current Vital Signs Temperature: 97.1 F Pulse Rate: 63 Blood Pressure: 103/66 Respiratory Rate: 12 Pulse Ox: 96 Oxygen Delivery Method: Room Air Assessment Airway patent: Yes Spontaneous unlabored respirations: Yes Mental status: Awake and Calm nausea: No Vomiting: No Anesthesia Complication: No Fluid Hydration Crystalloid volume administer (ml): 800 Total IV fluid infused: 800 Progress Note Anesthesia document: Postop Eval 1 completed: Yes 07/16/25850 Date Kory Beasley CRNA Cosigner Signature: Date CC: Signed Normal [facility] MR/[id number] 07-16-2025 MR/POSTOPAN2 [facility] Medical Records Department [address] [place] [address] Anesthesia Postop Eval II 07/16/25 1159 MR#: [id number] Acct: [id number] Name: JOSE SWEENEY Rep #: [id number] : 1955 70 From: Danitza Alcantara SURTASS ANALYST PCP: [facility] Status:DEP [facility] Y Race: C Location: [facility] Anesthesia Postop Eval I Sum Postop Eval Completion status Anesthesia document: Postop Eval 1 completed: Yes Anesthesia Postop Eval I Summary Anesthesia Postop Eval I Summary: Anesthesia Postop Eval I: Assessment Summary Airway patent Yes 07/16/25 08:51 SURTASS ANALYST.SHOF Spontaneous unlabored Yes 07/16/25 08:51 SURTASS ANALYST.SHOF respirations Mental status Awake,Calm 07/16/25 08:51 SURTASS ANALYST.SHOF nausea No 07/16/25 08:51 SURTASS ANALYST.SHOF Vomiting No 07/16/25 08:51 SURTASS ANALYST.SHOF Anesthesia Postop Eval I: Fluid Summary Crystalloid volume administer 800 07/16/25 08:51 SURTASS ANALYST.SHOF (ml) Colloids volume administered ( ml) Blood Product volume administered (ml) Total IV fluid infused 800 07/16/25 08:51 SURTASS ANALYST.SHOF Anesthesia Postop Eval I: Summary Notes Anesthesia Complication No 07/16/25 08:51 SURTASS ANALYST.SHOF Anesthesia Complication Comment: Post-operative progress note Anesthesia: Postop Eval II Evaluation Mental status: Awake and Calm Pain Level: 0 nausea: No Vomiting: No Complications Anesthesia Complication: No 07/16/251158 Date Danitza Alcantara SURTASS ANALYST Cosigner Signature: Date CC: Signed Normal [facility] Operative Reporton Operative Report [facility] Medical Records Department [address] [place] [address] Operative Report 07/16/25 0849 MR#: [id number] Acct: [id number] Name: JOSE SWEENEY Rep #: [id number] : 1955 70 From: Geraldo Cardenas MD [place]CP: [place] [facility] Status[facility] Location: [facility] Problems Associated Problem List Diagnoses (1) Malignant melanoma of right lower extremity: Operative Report (Standard) Operative Information Date of Procedure: 07/16/25 Pre-Operative Diagnosis: Right proximal posterior calf melanoma, Breslow depth 0.6 Post-Operative Diagnosis: Same Surgery/Procedure Performed: 1) wide local excision of right proximal posterior calf melanoma for margins (1 cm circumferential margins), 3.8 x 3.8 cm 2) dermal substitute placement, 3.8 x 3.8 cm hand sample maker: Yes Project Structural Engineer: Mildred Lord Tasks completed by legal assistant: Closing Type of Anesthesia: Local MAC (10 cc of 50-50 mixture of 1% lidocaine with 1-200,000 epinephrine and quarter percent Marcaine with 1-200,000 epinephrine) RN Documented Start/Stop Times: Operation Date: 07/16/25 07:30 Case Time Into Pre-Op 07/16/25 06:02 Out of Pre-Op 07/16/25 07:56 Anesthesia Start 07/16/25 08:02 Into Room 07/16/25 08:02 Procedure Start 07/16/25 08:19 Procedure End 07/16/25 08:43 Anesthesia End 07/16/25 08:47 Out of Room 07/16/25 08:47 Procedure Start Time: 08:17 Procedure Stop Time: 08:43 Select all DRAINS/GRAFTS/IMPLAN TS that apply: Tissue (Cadaver allograft) Tissue details: There is skin cadaver allograft for temporary dressings while waiting margins Estimated Blood Loss: 5 cc Specimen collected: Yes Description of specimen(s) removed: The melanoma was sent to pathology with 1 stitch proximal at 12:00, 2 stitches at 3:00, and 3 stitches at 6 o'clock position (distal). Description of surgery: Indications: Jose Sweeney is a delightful 70-year-old male with a biopsy-proven (shave biopsy) malignant melanoma of the right proximal posterior calf. The site was identified with the patient and confirmed (I marked him in preoperative holding with him and his in agreement with the site marking which was consistent with the pathology report and the note from Louis Marsh), and he agreed for wide local excision with 1 cm margins for a 0.6 mm Breslow depth melanoma (down to fascia). Patient understood the risks of bleeding, infection, damage to surrounding structures including cutaneous nerves with persistent numbness, wound healing complications, and failure to obtain the desired result which is clearance of the melanoma. I talked him about temporary dressing placement while we await permanent margins (followed by skin graft). Patient elected to proceed. Procedure details: Patient was taken back to the operating room he was administered sedation and the above-noted local solution. He was prepped and draped in sterile fashion and a proper timeout was performed. 15 blade scalpel was used to excise circumferential margins around the lesion (1 cm around the scar) for a total excision of 3.8 x 3.8 cm. The melanoma was sent to pathology with 1 stitch proximal at 12:00, 2 stitches at 3:00, and 3 stitches at 6 o'clock position (distal). Hemostasis obtained with Bovie electrocautery. The excision was down through the underlying fascia for complete full- thickness excision down to the muscle. A piece of cadaver allograft was sutured into place under a bolster for 3.8 x 3.8 cm dermal substitute placement (Vicryl sutures and Xeroform and gauze). Patient tolerated the procedure well. He was awakened taken the PACU in stable condition Postoperative plan: Keep the bolster dry until we have permanent margins and then we will take the patient back to the operating room for either skin graft or further excision. Surgical Findings: Too much tension for primary closure and therefore decision was made to place cadaver allograft Complications Complications: No 07/16/25 0857 Cosigner Signature (if applicable): CC: Dr. Geraldo Cardenas MD; [facility] Signed ADDENDUM by Dr. Geraldo Cardenas MD on 07/22/25 at 0914 Addendum Synoptic Portion: Element Response Options Operation performed with curative intent. [Yes; Original Breslow thickness of the lesion [0.6 mm (to the tenth of a millimeter).] Clinical margin width (measured from the edge of the lesion or the prior excision scar [1 cm Depth of excision [Full-thickness skin/subcutaneous tissue down to fascia (melanoma); 07/22/25913 Cosigner Signature (if applicable): cc: Dr. Geraldo Cardenas MD; [facility] * Signed Normal [facility] Surgery Specimen Level Von 1 Surgery Specimen Level V Patient Age/Sex Location Account Attending Physician ESTIVENJOSE WINSLOW 70/M [facility] [id number] Dr. Geraldo Cardenas MD Specimen: [id number] Received: 07/16/25 Status: EVELYNE [facility] Num: [id number] Spec Type: Lesion Subm Dr: Dr. Geraldo Cardenas MD HEADER OPERATION: Excision of right leg melanoma with application of theraskin PRE-OP DIAGNOSIS: Malignant melanoma of skin TISSUE SUBMITTED: A- Right proximal calf, wide local incision melanoma *1 stitch- 12o'clock (proximal), 2 stitches - 3o'clock, 3 stitches- 6o'clock* MICROSCOPIC DIAGNOSIS A. Skin, right proximal calf, melanoma, wide local excision: * No residual malignant melanoma observed. * Scar and associated reactive changes consistent with a previous surgical procedure. COMMENT The prior pathology report from [facility] is noted ([id number]). MICROSCOPIC DESCRIPTION Slides are reviewed. GROSS DESCRIPTION A. Received in formalin labeled with the patient's name and date of . Designated as right proximal calf wide local incision melanoma is a 3.2 x 2.8 cm dhillon skin ellipse with a blue surgical markings along the periphery and excised to a maximum depth of 0.5 cm. The specimen is oriented as follows: Single suture: designated as 12:00 (proximal).Double suture: designated as 3:00.Triple suture: designated as 6:00. There is a 0.6 x 0.3 cm hypopigmented and centrally erythematous scar, located the following distances from the margins:12:00: 1.0 cm 3:00: 1.2 cm 6:00: 1.3 cm9:00: 1.5 cmDeep: 0.4 cm Ink carter: 12:00 to 3:00: Green3:00 to 6:00: Yellow6:00 to 9:00: Orange9:00 to 12:00: BlueDeep: Black The specimen is serially sectioned from 3:00 to 9:00, and entirely submitted, sequentially in 7 cassettes, to include at the scar in cassettes A3-A4. [place] 07/16/2025 [facility]:[id number] Patient Age/Sex Location Account Attending Physician PATELJOSE KEENAN 70/M [facility] [id number] Dr. Geraldo Cardenas MD Signed (signature on file) Dr. Mari Toscano MD 07/21/[address] [facility] Comment on above: Performed By: #### P SUV #### [facility] Laboratory [facility] [address] [place], [place], [id number] Plastic Surgery Visit Report on 07-01-2025 Plastic Surgery Visit Report [facility] Plastic Reconstructive Surgery [facility] [address], [facility] [address] [place] [address] OFFICE VISIT Date of Service: 07/01/25 MR#: [id number] Acct: [id number] Name: JOSE SWEENEY Rep #: [id number] : 1955 Provider: Dr. Geraldo Cardenas MD Age/Sex: 69/M Location[place] [facility] Status: Signed Intake Vital Signs 3 09/14/22 10:40 07/01/25 10:28 Height 6 ft 1 in 6 ft 1 in Weight: 170 lb BMI 22.4 BP 154/77 H Blood Pressure Location Rt brachial Position Sitting Respiration 18 Pulse 70 Temp 98.1 F Temp Source Temporal Pulse Oximetry (%) 96 Oxygen Delivery Method room air Intake Visit Reasons: Melanoma Chief Complaint: melanoma right calf Is patient in pain?: No Allergies No Known Allergies Allergy (Verified 07/01/25 10:29) Medications 3 ???Medication ???Instructions ???Recorded ???Confirmed ???Type aspirin 81 mg chewable tablet 81 mg PO DAILY@0800 ##30 04/02/20 07/01/25 Rx Held on 09/14/22. Instructions: Resume on 09/28/22. atorvastatin 40 mg tablet 40 mg PO QHS #30 tabs 04/03/20 Rx omeprazole 20 mg capsule,delayed 20 mg PO DAILY 09/07/22 07/01/25 H istory release Have you fallen in the past year?: No PFSH Medical History Wears glasses Prostate disease High cholesterol Heartburn Gastric reflux Former smoker History of echocardiogram ( 04/02/20) Patient denies significant medical history Surgical History S/P TURP History of wisdom tooth extraction History of hernia surgery ( 1979) Social History Smoking Status: Former smoker how long ago did patient quit smokin years ago substance use type: marijuana additional social history: pt denies vaping, pt uses marijuana, uses edibles, take daily aspirin and uses ibuprofen Denies blood disorder, pt reports had a stroke. HPI Malignant melanoma of skin Details: The patient is a 69-year-old male presenting with a melanoma on the right proximal calf. The lesion was initially identified as a mole-like spot that was present for approximately 4 months and biopsied by Dr. Marsh, dermatology, revealing melanoma with a Breslow depth of 0.6 mm. There was reportedly no ulceration and there was <1 mitotic rate and no lymphatic spread on the shave biopsy (T1A lesion). He presents today for wide local excision consultation. The patient has a history of a stroke five years ago, attributed to hyperlipidemia, with no residual deficits reported. He is currently on aspirin and a statin for cholesterol management. ROS: - Integumentary: Reports a mole-like lesion on the right proximal calf for four months - Neurological: Denies any residual deficits post-stroke. He reports that he initially had right- sided weakness but this resolved and he has been on aspirin and cholesterol medicines ever since to prevent another stroke. Attestation: Documentation on this patient encounter was supported using ambient scribe technology/ voice AI technology. The patient consented to recording for the purpose of documenting the encounter. Provider reviewed content of the generated note prior to signature. ROS General General: Yes good health; No fatigue, fever(s) or weight loss HENMT HENMT: No rhinitis, sore throat/mouth sore, nasal congestion, contacts or glaucoma Endo Endocrine: No thyroid disease, polydipsia, heat intolerance, cold intolerance, hepatitis or excessive urine Skin Skin: No Bleeding, bruising, changing moles or suspicious lesion Musc Musculoskeletal: No joint pain, joint stiffness, muscle weakness, back pain, osteoarthritis or Muscle aches/ myalgia Neuro Neurological: No headache(s), No lightheadedness and No numbness Cardio Cardiovascular: No chest pain, pacemaker, fatigue or shortness of breat with exertion Psych Psychiatric: No depression, claustrophobia or anxiety Resp Respiratory: No spitting up, shortness of breath, sleep apnea, asthma, emphysema, TB, Cough or Smoker Gastro Gastrointestinal: No diarrhea, constipation, blood in stool, nausea, vomiting or abdominal bloating Manoj Hematologic: No anemia, No bleeding and No abnormal bleeding Genitourinary: No urinary frequency, blood in urine or incontinence Exam Details - Skin: Examination of the right proximal medial posterior calf revealed healing skin/scab at the biopsy site (correct site confirmed with patient and consistent with notes) - Lymphatic: No inguinal or popliteal lymphadenopathy detected Minimal skin laxity for appropriate primary closure without excessive tension Coding Level of Care Code Off vis,new,level 3 Diagnoses Rochelle (more content not included)... Normal [facility] Ear wax removalon 03-12-2024 Large amount of cerumen removed from bilateral ears. Pt tolerates well. [facility] No Panel InformationOrdered By: Dr. Stout on 01-28-2023 Prostate Specific Antigen Screen 1.09 ng/mL 0.00-4.[address] [facility] Comment on above: This test was perfor med using the TPSA assay method for theSmartProcure chemistry system. Values obtained with differentassay methods cannot be used interchangably.When changing PSA assays in the course of monitoring apatient, additional sequential testing should be carriedout to confirm baseline values. Basophil percentageon 2021 Chloride [Moles/Vol] 105 mmol/L 98-107 [facility] Work Phone: Glucose [Mass/Vol] 115 mg/dL 74-106 [facility] Work Phone: Comment on above: Fasting Glucose resu lt from 100 to 125 mg/dL suggests IMPAIRED HOMEOSTASIS per A.D.A. criteria. Potassium [Moles/Vol] 4.1 mmol/L 3.5-5.1 [facility] Work Phone: Sodium [Moles/Vol] 138 mmol/L 136-145 [facility] Work Phone: WBC (Bld) [#/Vol] 6.5 10*3/uL 4.4-11.0 [facility] Work Phone: Blood erythrocytes count (nu mber/volume)on 09-11-2022 RBC (Bld) [#/Vol] 4.68 10*6/uL 4.6-6.2 [facility] Work Phone: Blood hemoglobin measurement (mass/volume)on 09-11-2022 Hemoglobin (Bld) [Mass/Vol] 14.4 g/dL 13.0-16.[address] [facility] Work Phone: Blood platelet mean volumeon 09-11-2022 Platelet mean volume (Bld) [Entitic vol] 9.7 fL 6.2-12.[address] [facility] Work Phone: Determination of erythrocyte mean corpuscular volume (MCV)on 09-11-2022 MCV (RBC) [Entitic vol] 89.7 fL 80-94 [facility] Work Phone: Hematocrit Auto (Bld) [Volum e fraction]on 09-11-2022 Hematocrit (Bld) [Volume fraction] 42.0 % 40-[address] [facility] Work Phone: Laboratory - Chemistry and C hemistry - challengeon 09-11-2022 CO2 [Moles/Vol] 32.0 mmol/L 21.0-32.[address] [facility] Work Phone: Urea nitrogen/Creatinine [Mass ratio] 15.8 mg/mg 10-[address] [facility] Work Phone: Laboratory - Hematology and Cell countson 09-11-2022 Erythrocyte distribution width (RBC) [Entitic vol] 40.0 fL 35.1-43.[address] [facility] Work Phone: Erythrocyte distribution width (RBC) [Ratio] 12.2 % 11.6-14.[address] [facility] Work Phone: MCH (RBC) [Entitic mass] 30.8 pg 27.0-32.[address] [facility] Work Phone: MCHC Auto (RBC) [Mass/Vol]on 09-11-2022 MCHC (RBC) [Mass/Vol] 34.3 g/dL 32-36 [facility] Work Phone: No Panel Informationon 09-11 Estimated GFR (MDRD) Amer 102 mL/min >[address] [facility] Work Phone: Comment on above: GFR Calc Estimated GFR (MDRD) Non-Af Amer 85 mL/min >[address] [facility] Work Phone: Comment on above: Non- GFR Calc Platelets bldon 09-11-2022 Platelets (Bld) [#/Vol] 245 10*3/uL 150-[address] [facility] Work Phone: Serum or plasma calcium darlin urement (mass/volume)on 09-11-2022 Calcium [Mass/Vol] 9.3 mg/dL 8.5-10.1 [facility] Work Phone: Serum or plasma creatinine m easurement (mass/volume)on 09-11-2022 Creatinine [Mass/Vol] 0.95 mg/dL 0.70-1.30 [facility] Work Phone: Comment on above: The validity of the calculated GFR & GFRAA in patients over 70 years has not been determined. Clinical correlation is essential. Serum or plasma urea nitroge n measurement (mass/volume)on 09-11-2022 Urea nitrogen [Mass/Vol] 15 mg/dL 7-[address] [facility] Work Phone: Thin prep Papanicolaou smear with manual screeningon 09-11-2022 Thin prep Papanicolaou smear with manual screening 1 - [facility] Work Phone: Vital Signs Date Time Vital Sign Value Performing Clinician Faci lity 07-01-2025 10:28-0400 Body height 185.[address] Geraldo Cardenas MD Work Phone: [facility] 07-01-2025 10:28-0400 Body mass index (BMI) [Ratio] 22.4 kg/m2 Dr. Geraldo Cardenas MD Work Phone: [facility] 07-01-2025 10:28-0400 Body temperature 98.1 [degF] Dr. Geraldo Cardenas MD Work Phone: [facility] 07-01-2025 10:28-0400 Body weight 77.[address] Geraldo Cardenas MD Work Phone: [facility] 07-01-2025 10:28-0400 Diastolic blood pressure 77 mm[Hg] Dr. Geraldo Cardenas MD Work Phone: [facility] 07-01-2025 10:28-0400 Heart rate 70 /min Dr. Geraldo Cardenas MD Work Phone: [facility] 07-01-2025 10:28-0400 Respiratory rate 18 /min Dr. Geraldo Cardenas MD Work Phone: [facility] 07-01-2025 10:28-0400 SaO2% (BldA) [Mass fraction] 96 % Dr. Geraldo Cardenas MD Work Phone: [facility] 07-01-2025 10:28-0400 Systolic blood pressure 154 mm[Hg] Dr. Geraldo Cardenas MD Work Phone: [facility] 12-21-2024 13:22-0400 Body mass index (BMI) [Ratio] 22.3 kg/m2 Nicolas Jimenez OFFSET LITHOGRAPHIC PRESS OPERATOR Work Phone: [facility] 12-21-2024 13:22-0400 Body temperature 97.5 [degF] Nicolas Jimenez OFFSET LITHOGRAPHIC PRESS OPERATOR Work Phone: [facility] 12-21-2024 13:22-0400 Body weight 76.66 kg Nicolas Jimenez OFFSET LITHOGRAPHIC PRESS OPERATOR Work Phone: [facility] 12-21-2024 13:22-0400 Diastolic blood pressure 68 mm[Hg] Nicolas Jimenez OFFSET LITHOGRAPHIC PRESS OPERATOR Work Phone: [facility] 12-21-2024 13:22-0400 Heart rate 57 /min Nicolas Lewis OFFSET LITHOGRAPHIC PRESS OPERATOR Work Phone: [facility] 12-21-2024 13:22-0400 SaO2% (BldA) [Mass fraction] 96 % Nicolaslaquita Jimenez OFFSET LITHOGRAPHIC PRESS OPERATOR Work Phone: [facility] 12-21-2024 13:22-0400 Systolic blood pressure 129 mm[Hg] Nicolas Jimenez OFFSET LITHOGRAPHIC PRESS OPERATOR Work Phone: [facility] 03-12-2024 10:13-0400 Diastolic blood pressure 88 mm[Hg] Laureen Spijanenner OFFSET LITHOGRAPHIC PRESS OPERATOR Work Phone: [facility] 03-12-2024 10:13-0400 Systolic blood pressure 147 mm[Hg] Laureen Spieldenner OFFSET LITHOGRAPHIC PRESS OPERATOR Work Phone: [facility] 03-12-2024 09:42-0400 Body height 185.4 cm Laureen Spijanenner OFFSET LITHOGRAPHIC PRESS OPERATOR Work Phone: [facility] 03-12-2024 09:42-0400 Body mass index (BMI) [Ratio] 21.69 kg/m2 Laureen Spieldenner OFFSET LITHOGRAPHIC PRESS OPERATOR Work Phone: [facility] 03-12-2024 09:42-0400 Body temperature 98.29 [degF] Laureen Spieldenner OFFSET LITHOGRAPHIC PRESS OPERATOR Work Phone: [facility] 03-12-2024 09:42-0400 Body weight 74.57 kg Laureen Spieldenner OFFSET LITHOGRAPHIC PRESS OPERATOR Work Phone: [facility] 03-12-2024 09:42-0400 Heart rate 63 /min Laureen Spieldenner OFFSET LITHOGRAPHIC PRESS OPERATOR Work Phone: [facility] 03-12-2024 09:42-0400 SaO2% (BldA) [Mass fraction] 98 % Laureen Spieldenner OFFSET LITHOGRAPHIC PRESS OPERATOR Work Phone: [facility] 12-11-2023 11:22-0500 Diastolic blood pressure 79 mm[Hg] Laureen Spieldenner OFFSET LITHOGRAPHIC PRESS OPERATOR Work Phone: [facility] 12-11-2023 11:22-0500 Systolic blood pressure 131 mm[Hg] Laureen Spieldenner OFFSET LITHOGRAPHIC PRESS OPERATOR Work Phone: [facility] 12-11-2023 10:55-0500 Body height 185.4 cm Laureen Spieldenner OFFSET LITHOGRAPHIC PRESS OPERATOR Work Phone: [facility] 12-11-2023 10:55-0500 Body mass index (BMI) [Ratio] 25.93 kg/m2 Laureen Spieldenner OFFSET LITHOGRAPHIC PRESS OPERATOR Work Phone: [facility] 12-11-2023 10:55-0500 Body temperature 98.71 [degF] Laureen Spieldenner OFFSET LITHOGRAPHIC PRESS OPERATOR Work Phone: [facility] 12-11-2023 10:55-0500 Body weight 89.13 kg Laureen Spieldenner OFFSET LITHOGRAPHIC PRESS OPERATOR Work Phone: [facility] 12-11-2023 10:55-0500 Heart rate 59 /min Laureen Spieldenner OFFSET LITHOGRAPHIC PRESS OPERATOR Work Phone: [facility] 12-11-2023 10:55-0500 SaO2% (BldA) [Mass fraction] 95 % Laureen Spieldenner OFFSET LITHOGRAPHIC PRESS OPERATOR Work Phone: [facility] 09-15-2022 08:47-0500 Body temperature 98 [degF] [facility] Work Phone: 09-15-2022 08:47-0500 Diastolic blood pressure 69 mm[Hg] [facility] Work Phone: 09-15-2022 08:47-0500 Heart rate 70 /min [facility] Work Phone: 09-15-2022 08:47-0500 Respiratory rate 18 /min [facility] Work Phone: 09-15-2022 08:47-0500 SaO2% (BldA) [Mass fraction] 98 % [facility] Work Phone: 09-15-2022 08:47-0500 Systolic blood pressure 138 mm[Hg] [facility] Work Phone: 09-14-2022 10:40-0500 Body height 185.42 cm [facility] Work Phone: 09-14-2022 10:40-0500 Body mass index (BMI) [Ratio] 22.4 kg/m2 [facility] Work Phone: 09-14-2022 10:40-0500 Body weight 77.2 kg [facility] Work Phone: Encounters Encounter Date Encounter Type Care Provider Facility Start: 07-23-2025 ambulatory [facility] Facility:[facility] Start: 07-16-2025 ambulatory [facility] Start: 07-16-2025 End: 07-16-2025 ambulatory [facility] Facility:[facility] Start: 07-01-2025 End: 07-01-[address] Geraldo Cardenas MD -[facility] Work Phone: Start: 07-01-2025 End: 07-01-2025 ambulatory Geraldo Cardenas -[facility] Start: 04-14-2025 End: 04-14-2025 Refill Nicolas Jimenez CNP Work Phone: [facility] Comment on above: Gastroesophageal ref lux disease, unspecified whether esophagitis present Start: 03-04-2025 End: 03-04-2025 Refill Nicolas Jimenez OFFSET LITHOGRAPHIC PRESS OPERATOR Work Phone: [facility] Comment on above: Mixed hyperlipidemia Start: 12-21-2024 End: 12-21-2024 Office outpatient visit 15 minutes Nicolas Mcgowan Barbara OFFSET LITHOGRAPHIC PRESS OPERATOR Work Phone: [facility] Comment on above: Mixed hyperlipidemia (Primary Dx); Cerebrovascular accident (CVA), unspecified mechanism (HCC); Gastroesophageal reflux disease, unspecified whether esophagitis present Start: 12-21-2024 End: 12-21-2024 ambulatory NICOLAS JIMENEZ [facility] Start: 12-03-2024 End: 12-05-2024 Refill Laureen Diaz OFFSET LITHOGRAPHIC PRESS OPERATOR Work Phone: [facility] Comment on above: Mixed hyperlipidemia Start: 04-29-2024 ambulatory LAUREEN DIAZ [facility] Start: 04-17-2024 End: 04-17-2024 Refill Laureen Diaz OFFSET LITHOGRAPHIC PRESS OPERATOR Work Phone: [facility] Comment on above: Gastroesophageal ref lux disease, unspecified whether esophagitis present Start: 03-12-2024 End: 03-12-2024 Patient encounter procedure Laureen Diaz OFFSET LITHOGRAPHIC PRESS OPERATOR Work Phone: [facility] Comment on above: General medical exam (Primary Dx); Personal history of tobacco use; At low risk for fall; Gastroesophageal reflux disease, unspecified whether esophagitis present; Benign prostatic hyperplasia, unspecified whether lower urinary tract symptoms present; Mixed hyperlipidemia; Bilateral impacted cerumen; Elevated BP without diagnosis of hypertension Start: 03-12-2024 End: 03-12-2024 Patient encounter status Laureen Diaz OFFSET LITHOGRAPHIC PRESS OPERATOR Work Phone: [facility] Work Phone: Start: 03-12-2024 End: 03-12-2024 ambulatory LAUREEN DIAZ [facility] Start: 03-12-2024 End: 03-12-2024 Encounter for general adult medical examination without abnormal findings LAUREEN DIAZ [facility] Start: 03-10-2024 Documentation procedure Laureen Diaz OFFSET LITHOGRAPHIC PRESS OPERATOR Work Phone: [facility] Comment on above: Medicare wellness ou laura (OV 03/12/2024) Start: 12-11-2023 End: 12-11-2023 Office outpatient new 45 minutes Laureen Diaz OFFSET LITHOGRAPHIC PRESS OPERATOR Work Phone: [facility] Comment on above: Mixed hyperlipidemia (Primary Dx); Gastroesophageal reflux disease, unspecified whether esophagitis present; TIA (transient ischemic attack); Benign prostatic hyperplasia, unspecified whether lower urinary tract symptoms present; Elevated BP without diagnosis of hypertension Start: 01-28-2023 End: 01-28-[address] [facility] Work Phone: Start: 01-28-2023 End: 01-28-2023 Patient encounter procedure [facility] Start: 09-14-2022 End: 09-15-2022 Evaluation and management of inpatient [facility]Medical Surgical 3 Start: 09-14-2022 End: 09-15-2022 observation encounter [facility] Work Phone: Start: 08-04-2022 End: 08-04-[address] [facility] Work Phone: Start: 08-04-2022 End: 08-04-2022 Patient encounter procedure [facility], [facility] Start: 08-01-2022 End: 08-01-[address] [facility] Work Phone: Start: 08-01-2022 End: 08-01-2022 Patient encounter procedure [facility], [facility] Start: 05-18-2020 Patient encounter procedure MICHELL STEWART Facility:[facility] Start: 01-16-2019 End: 01-16-2019 Patient encounter procedure Vipul Stern Facility:[facility] Procedures Date Procedure Procedure Detail Performing Clinician Start: 03-12-2024 EAR WAX REMOVAL Laureen Diaz OFFSET LITHOGRAPHIC PRESS OPERATOR Work Phone: Start: 03-12-2024 Adult depression screening assessment Laureen Bishopjeffrey REBOLLEDO Work Phone: Start: 03-10-2024 Adult depression screening assessment Laureen Bishopjeffrey REBOLLEDO Work Phone: Start: 12-11-2023 Adult depression screening assessment Laureen Bishopjeffrey REBOLLEDO Work Phone: Start: 09-14-2022 Cysto,Transurethral Resection Prostate (Not Applicable) Start: 08-04-2022 CT of abdomen Start: 08-01-2022 Pelvic echography Plan of Treatment Date Care Activity Detail Author Start: 2031 Respiratory Syncytial Virus Immunization: Risk, 60-74 Risk, or 75+ (1 - 1-dose 75+ series) Respiratory Syncytial Virus Immunization: Risk, 60-74 Risk, or 75+ (1 - 1-dose 75+ series) [facility] Start: 12-23-2025 End: 12-23-2025 Patient encounter procedure 12/23/2025 9:00 AM EDT Office Visit [facility] [address] [place] [id number] Nicolas Jimenez CNP [address] [place] [address] [facility] Start: 10-07-2025 Screening for malignant neoplasm of colon [facility] Start: 06-07-2025 Influenza vaccination Influenza Vaccine (#1) [facility] Start: 05-07-2025 Prostate specific antigen measurement PSA Level [facility] Start: 04-12-2025 COVID-19 Vaccine ( season) COVID-19 Vaccine ( season) [facility] Start: 03-12-2025 Depression screening using PHQ-9 (Patient Health Questionnaire 9) score Depression Screening/Follow-Up (PHQ-2/9) [facility] Start: 03-12-2025 History and physical examination, annual for health maintenance Wellness Visit [facility] Start: 03-12-2025 Medicare Wellness Visit Medicare Wellness Visit [facility] Start: 03-10-2025 Depression screening using PHQ-9 (Patient Health Questionnaire 9) score Depression Screening (PHQ-2/9) [facility] Start: 03-10-2025 Fall risk assessment Falls Risk Assessment [facility] Start: 12-21-2024 End: 12-21-2024 Patient encounter procedure 12/21/2024 1:30 PM EDT Office Visit [facility] [address] [place] [address] Nicolas Jimenez, OFFSET LITHOGRAPHIC PRESS OPERATOR [address] [place] [address] [facility] Start: 12-10-2024 COVID-19 Vaccine () COVID-19 Vaccine () [facility] Comment on above: Postponed from 06/07/2023 (Patient Refus ed) Start: 12-10-2024 Depression screening using PHQ-9 (Patient Health Questionnaire 9) score Depression Screening (PHQ-2/9) [facility] Start: 12-10-2024 Pneumococcal Vaccine: Age 50+ (2 of 2 - PCV) Pneumococcal Vaccine: Age 50+ (2 of 2 - PCV) [facility] Comment on above: Postponed from 06/07/2023 (Patient Refus ed) Start: 12-10-2024 Pneumococcal Vaccine: Age 65+ (2 of 2 - PCV) Pneumococcal Vaccine: Age 65+ (2 of 2 - PCV) [facility] Comment on above: Postponed from 06/07/2023 (Patient Refus ed) Start: 12-10-2024 Tetanus vaccination Tetanus: Every 10yrs [facility] Comment on above: Postponed from 1955 (Patient Refus ed) Start: 06-18-2024 End: 06-18-2024 Patient encounter procedure 06/18/2024 9:40 AM EDT Office Visit [facility] [address] [place] [phone] Laureen Diaz, OFFSET LITHOGRAPHIC PRESS OPERATOR [address] [place], [place] [id number] [facility] Start: 06-07-2024 COVID-19 Vaccine () COVID-19 Vaccine () [facility] Start: 06-07-2024 Influenza vaccination Influenza Vaccine (#1) [facility] Start: 03-12-2024 End: 03-12-2024 Patient encounter procedure 03/12/2024 9:40 AM EDT Office Visit [facility] [address] [place] [phone] Laureen Diaz CNP [address] [place] [address] [facility] Start: 06-07-2023 Pneumococcal Vaccine: Age 50+ (2 of 2 - PCV) Pneumococcal Vaccine: Age 50+ (2 of 2 - PCV) [facility] Start: 09-15-2022 Patient discharge [facility] Work Phone: Start: 09-15-2022 Removal of urinary catheter [facility] Work Phone: Start: 09-14-2022 Application of intermittent pneumatic compression device [facility] Work Phone: Start: 09-14-2022 Following clinical pathway protocol [facility] Work Phone: Start: 09-14-2022 Admission procedure [facility] Work Phone: Start: 09-14-2022 Deep breathing and coughing exercises [facility] Work Phone: Start: 09-14-2022 Incentive spirometry [facility] Work Phone: Start: 09-14-2022 Irrigation of urinary bladder [facility] Work Phone: Start: 09-14-2022 Measuring intake and output [facility] Work Phone: Start: 09-14-2022 Patient education [facility] Work Phone: Start: 09-14-2022 Provision of activity privileges [facility] Work Phone: Start: 09-14-2022 Taking patient vital signs [facility] Work Phone: Start: 09-14-2022 Vital signs measurements [facility] Work Phone: Start: 09-14-[address] [facility] Work Phone: Start: 2021 Fall risk assessment Falls Risk Assessment [facility] Start: 2006 Screening for malignant neoplasm of colon Flexible sigmoidoscopy [facility] Start: 1968 Depression screening using PHQ-9 (Patient Health Questionnaire 9) score Depression Screening (PHQ-2/9) [facility] Start: 1959 History and physical examination, annual for health maintenance Wellness Visit [facility] Start: 1955 Abdominal aortic aneurysm screening Abdominal Aortic Ultrasound [facility] Start: 1955 Screening for malignant neoplasm of colon [facility] Start: 1955 Tetanus vaccination Tetanus: Every 10yrs [facility] Electrocardiographic procedure [facility] Work Phone: Patient referral [facility] Work Phone: Immunizations Immunization Date Immunization Notes Care Provider Laura johnson 10-13-2024 influenza virus vaccine, unspecified formulation Nicolas Jimenez OFFSET LITHOGRAPHIC PRESS OPERATOR Work Phone: [facility] 07-29-2023 influenza virus vaccine, unspecified formulation Laureen Diaz OFFSET LITHOGRAPHIC PRESS OPERATOR Work Phone: [facility] 07-23-2022 Influenza, injectabl e, Madin Inocencia Canine Kidney, preservative free, quadrivalent [facility] 06-07-2022 pneumococcal polysaccharide vaccine, [address] [facility] 08-24-2021 Covid (Moderna) [facility] 12-17-2020 Covid ([employer]) [facility] Payers Date Payer Category Payer Self-pay [id number] 2021 Miscellaneous or Other [employer] Member Subscriber Plan / Payer (Effective 2021-Present) Name: Jose Sweeney Relation to Subscriber: Self Name: Jose Sweeney Payer ID: Not on file Group ID: Not on file Type: Not on file [id number] Address: [place] [address] [id number] 2021 Unknown [id number] 2021 Medicare [id number] 2021 Medicare [id number] 2019 Unknown 1955 Unknown [id number] 1955 Unknown [id number] 1955 Unknown [id number] 1955 Unknown [id number] Unknown [id number] Unknown [id number] Unknown [id number] Unknown [id number] Unknown [id number] Social History Date Type Detail Facility Start: 04-03-2020 End: 09-07-2022 Tobacco smoking status IDIS Unknown if ever smoked [facility] Start: 04-01-[address] [facility] Start: 1955 Sex Assigned At Male [facility] Start: 12-11-2023 End: 07-01-2025 Tobacco smoking status NHIS Ex-smoker [facility] Start: 10-07-1964 End: 10-07-1974 History of tobacco use Current smoker [facility] Start: 10-07-1964 End: 10-07-1974 History of tobacco use Cigarette Smoker [facility] Start: 12-11-2023 End: 03-12-2024 Cigarettes smoked current (pack per day) - Reported 1 [facility] Start: 12-11-2023 Tobacco use and exposure Smokeless tobacco non-user [facility] Start: 12-11-2023 End: 12-21-2024 Alcohol intake Current drinker of alcohol (finding) [facility] Start: 12-11-2023 Alcohol Comment 1-2/week [facility] Start: 1955 Sex Assigned At Not on file [facility] Start: 10-17-2023 Gender identity Identifies as male gender (finding) [facility] Start: 10-17-2023 Sexual orientation Heterosexual (finding) [facility] Start: 12-11-2023 End: 03-12-2024 Tobacco use panel [facility] Adult Depression Screening Assessment 0 [facility] Goals Date Patient Goal Desired Activity /State Functional Status Date Assessment Result Facility 09-15-2022 Functional status Ambulates;Chair [facility] Work Phone: Mental Status Date Assessment Result Facility 09-15-2022 Cognitive function Demonstrates ability to follow instructions/comprehend [facility] Work Phone: 09-14-2022 Cognitive function Voice/Name [facility] Work Phone: Clinical Notes 09-11-2022 to 07-16-2025 Telephone Encounter - Steve Cardoso LPN - 04/14/2025 1:00 PM EDTTelephone Encounter - Steve Cardoso LPN - 04/14/2025 1:00 PM Nicolas Silvestre CNP - 12/21/2024 1:30 PM EDT Note Date & Type Note Facility 07-16-2025 Note [facility] Medical Records Department [address] [place] [address] History Physical Exam 07/16/25 0709 MR#: [id number] Acct: [id number] Name: PATELJOSE JAY Rep #: [id number] : [id number] 70 From: Mildred ARANDA PCP: [place] Hospital Status:[facility] Location: [address] HPI - General HPI Narrative JOSE SWEENEY, is a 70 M who presents today for melanoma excision of right lower extremity with Dr. Cardenas. The patient is a 69-year-old male presenting with a melanoma on the right proximal calf. Patient initially noticed a wartlike lesion in the right proximal calf for about 4 months which was subsequently biopsied by Dr. Marsh dietary worker. Biopsy showed melanoma with a Breslow depth of 0.6 mm. There was reportedly no ulceration and there was <1 mitotic rate and no lymphatic spread on the shave biopsy (T1A lesion). Past medical history significant for hyperlipidemia, history of stroke 5 years ago with no residual deficits. He is on aspirin, statin. The patient has a history of a stroke five years ago, attributed to hyperlipidemia, with no residual deficits reported. He is currently on aspirin and a statin for cholesterol management. He denies changes in his medical health and changes to his medications. He denies fever, chills, urinary symptoms, rashes, dental infection. [facility] Medical History (Updated 07/16/25 @ 07:21 by ROSI Champion) Malignant melanoma of right lower extremity Non-smoker Wears glasses Prostate disease High cholesterol Heartburn Gastric reflux Former smoker History of echocardiogram (04/02/20) Patient denies significant medical history Home Medications ???Medication ???Instructions ???Recorded ???Last Taken ???Type aspirin 81 mg chewable tablet 81 mg PO DAILY@0800 ##30 04/02/20 07/15/25 Rx atorvastatin 40 mg tablet 40 mg PO QHS #30 tabs 04/03/2004/30 Rx omeprazole 20 mg capsule,delayed 20 mg PO DAILY 09/07/22 07/16/25 H istory release Allergy/AdvReac Type Severity Reaction Status Date / Time bee venom protein (honey Allergy Severe Anaphylaxis Verified 07/16/25 06:20 bee) (bee sting) Surgical History S/P TURP (09/14/22) History of wisdom tooth extraction History of hernia surgery ( 1979) Social History Smoking Status: Former smoker how long ago did patient quit smokin years ago substance use type: marijuana additional social history: pt denies vaping, pt uses marijuana, uses edibles, take daily aspirin and uses ibuprofen Denies blood disorder, pt reports had a stroke. Vital Signs Vital Signs Vital Signs: 07/16/25 06:21 07/16/25 06:21 07/16/25 07:07 Temperature 97.8 F 97.8 F Temperature Source Temporal Pulse Rate 57 L 57 L Respiratory Rate 18 18 Respiratory Pattern Normal Blood Pressure 136/69 H 136/69 H Blood Pressure Mean 91 Blood Pressure Source Monitor Blood Pressure Position Semi-Fowlers Blood Pressure Location Left Arm Pulse Ox 97 97 Oxygen Delivery Method Room Air Room Air Weight Weight: 165 lb 5.547 oz Body Mass Index (BMI) 21.8 Physical Exam Narrative Afebrile/VSS. Lying in bed in no acute distress. - Skin: Examination of the right proximal medial posterior calf revealed healing skin/scab at the biopsy site (correct site confirmed with patient and consistent with notes) - Lymphatic: No inguinal or popliteal lymphadenopathy detected - No respiratory wheezing, increased effort or accessory muscle use noted. Abdomen soft, nontender in all 4 quadrants. - Moves right lower extremity spontaneously and smoothly grossly to normal strength - Sensation intact to light touch. Assessment Plan Assessment/Plan (1) Malignant melanoma of right lower extremity: PLAN: Presents today for wide local excision with 1 cm margins. Ancef for periop antibitoics. Plan for DC same day. 07/16/25721 Cosigner Signature (if applicable): CC: ROSI Av[facility]; [place] [facility] Signed [facility] 07-01-2025 Progress note [facility] 04-14-2025 Telephone encounter Note Jose is requesting a refill for Requested Prescriptions Pending Prescriptions Disp Refills omeprazole (PRILOSEC) 20 MG capsule 90 capsule 3 Sig: Take 1 (one) capsule (20 mg total) by mouth 2 (two) times a day . Last refill: 04/17/24 90 day 3 refills Last appt: 12/21/24 Upcoming appt (when is it due or is it scheduled): 12/23/25 Follow up: Refill pending for review without additional follow up based on information above. [facility] 04-14-2025 Miscellaneous Notes Jose is requesting a refill for Requested Prescriptions Pending Prescriptions Disp Refills omeprazole (PRILOSEC) 20 MG capsule 90 capsule 3 Sig: Take 1 (one) capsule (20 mg total) by mouth 2 (two) times a day . Last refill: 04/17/24 90 day 3 refills Last appt: 12/21/24 Upcoming appt (when is it due or is it scheduled): 12/23/25 Follow up: Refill pending for review without additional follow up based on information above. documented in this encounter [facility] 03-04-2025 Telephone encounter Note Jose is requesting a refill for Requested Prescriptions Pending Prescriptions Disp Refills atorvastatin (LIPITOR) 40 MG tablet 100 tablet 3 Sig: Take 1 (one) tablet (40 mg total) by mouth daily . Last refill: 12/05/2024 Last appt: 12/21/2024 Upcoming appt (when is it due or is it scheduled): 12/23/2025 Follow up: Refill pending for review without additional follow up based on information above. [facility] 03-04-2025 Miscellaneous Notes Jose is requesting a refill for Requested Prescriptions Pending Prescriptions Disp Refills atorvastatin (LIPITOR) 40 MG tablet 100 tablet 3 Sig: Take 1 (one) tablet (40 mg total) by mouth daily . Last refill: 12/05/2024 Last appt: 12/21/2024 Upcoming appt (when is it due or is it scheduled): 12/23/2025 Follow up: Refill pending for review without additional follow up based on information above. documented in this encounter [facility] 12-21-2024 Evaluation + Plan note Associated Problem(s): HLD (hyperlipidemia) Chronic. Stable Continues ASA and Statin [facility]. [facility], completes yearly [facility] 12-21-2024 Evaluation + Plan note Associated Problem(s): GERD (gastroesophageal reflux disease) Chronic. Stable Continue PPI Avoid triggers, as able [facility] 12-21-2024 Miscellaneous Notes Associated Problem(s): HLD (hyperlipidemia) Chronic. Stable Continues ASA and Statin therapy. [facility]. [facility] per [facility], completes yearly Associated Problem(s): GERD (gastroesophageal reflux disease) Chronic. Stable Continue PPI Avoid triggers, as able documented in this encounter [facility] 12-21-2024 Note Subjective Patient I D: Jose Sweeney is a pleasant 69 y.o. male here to transition care and complete a chronic care follow-up. [facility] Previously followed with Robin Diaz CNP HPI Hx of CVA: Chronic, occurred in 2019. No residual deficits. Medications - atorvastatin and ASA. [facility] per [facility]. Home BP readings - 130/77. Not on any anti-hypertensive's. Tobacco - former, quit in 1974 GERD: Chronic. Stable Triggers - nothing specific Medications - prilosec Reviewed by Provider: Tobacco Allergies Meds Med Hx Surg Hx Fam Hx Soc Hx Review of Systems Constitutional: Negative for activity change, appetite change, fatigue and fever. HENT: Negative for dental problem. Eyes: Negative for visual disturbance. Respiratory: Negative for cough, shortness of breath and wheezing. Cardiovascular: Negative for chest pain, palpitations and leg swelling. Gastrointestinal: Negative for abdominal pain, constipation, diarrhea, nausea and vomiting. Genitourinary: Negative for difficulty urinating. Musculoskeletal: Negative for arthralgias. Skin: Negative for rash. Neurological: Negative for dizziness, light-headedness and headaches. Psychiatric/Behavioral: Negative for sleep disturbance. Objective BP 129/68 (BP Location: Left arm) Pulse (!) 57 Temp 97.5 degrees F (36.4 degrees C) (Oral) Wt 76.7 kg (169 lb) SpO2 96% BMI 22.30 kg/m Physical Exam Constitutional: General: He is not in acute distress. HENT: Head: Normocephalic and atraumatic. Eyes: General: No scleral icterus. Conjunctiva/sclera: Conjunctivae normal. Neck: Thyroid: No thyroid tenderness. Cardiovascular: Rate and Rhythm: Normal rate and regular rhythm. Pulses: Normal pulses. Carotid pulses are 2+ on the right side and 2+ on the left side. Heart sounds: Normal heart sounds. No murmur heard. Pulmonary: Effort: Pulmonary effort is normal. Breath sounds: Normal breath sounds. Abdominal: General: There is no distension. Musculoskeletal: General: No swelling. Normal range of motion. Lymphadenopathy: Cervical: No cervical adenopathy. Skin: General: Skin is warm and dry. Neurological: General: No focal deficit present. Mental Status: He is alert. Psychiatric: Mood and Affect: Mood normal. Behavior: Behavior normal. Thought Content: Thought content normal. Assessment & Plan Mixed hyperlipidemia Chronic. Stable Continues ASA and Statin therapy. [facility]. [facility], completes yearly Cerebrovascular accident (CVA), unspecified mechanism (HCC) Hx of Care plan as above Gastroesophageal reflux disease, unspecified whether esophagitis present Chronic. Stable Continue PPI Avoid triggers, as able Return in about 1 year (around 12/21/2025) for wellness exam. AUTHENTICATED BY NICOLAS JIMENEZ ON 12/21/2024 13:47:55 [facility] 12-21-2024 History of Presen t illness Narrative Subjective Patient ID: Jose Sweeney is a pleasant 69 y.o. male here to transition care and complete a chronic care follow-up. [facility] Previously followed with Robin Diaz CNP HPI Hx of CVA: Chronic, occurred in 2019. No residual deficits. Medications - atorvastatin and ASA. Managed per [facility]. Home BP readings - 130/77. Not on any anti-hypertensive's. Tobacco - former, quit in 1974 GERD: Chronic. Stable Triggers - nothing specific Medications - prilosec Reviewed by Provider: Tobacco Allergies Meds Med Hx Surg Hx Fam Hx Soc Hx Review of Systems Constitutional: Negative for activity change, appetite change, fatigue and fever. HENT: Negative for dental problem. Eyes: Negative for visual disturbance. Respiratory: Negative for cough, shortness of breath and wheezing. Cardiovascular: Negative for chest pain, palpitations and leg swelling. Gastrointestinal: Negative for abdominal pain, constipation, diarrhea, nausea and vomiting. Genitourinary: Negative for difficulty urinating. Musculoskeletal: Negative for arthralgias. Skin: Negative for rash. Neurological: Negative for dizziness, light-headedness and headaches. Psychiatric/Behavioral: Negative for sleep disturbance. Objective BP 129/68 (BP Location: Left arm) Pulse (!) 57 Temp 97.5 F (36.4 C) (Oral) Wt 76.7 kg (169 lb) SpO2 96% BMI 22.30 kg/m Physical Exam Constitutional: General: He is not in acute distress. HENT: Head: Normocephalic and atraumatic. Eyes: General: No scleral icterus. Conjunctiva/sclera: Conjunctivae normal. Neck: Thyroid: No thyroid tenderness. Cardiovascular: Rate and Rhythm: Normal rate and regular rhythm. Pulses: Normal pulses. Carotid pulses are 2+ on the right side and 2+ on the left side. Heart sounds: Normal heart sounds. No murmur heard. Pulmonary: Effort: Pulmonary effort is normal. Breath sounds: Normal breath sounds. Abdominal: General: There is no distension. Musculoskeletal: General: No swelling. Normal range of motion. Lymphadenopathy: Cervical: No cervical adenopathy. Skin: General: Skin is warm and dry. Neurological: General: No focal deficit present. Mental Status: He is alert. Psychiatric: Mood and Affect: Mood normal. Behavior: Behavior normal. Thought Content: Thought content normal. Assessment & Plan Mixed hyperlipidemia Chronic. Stable Continues ASA and Statin therapy. Managed per [facility]. Labs per [facility], completes yearly Cerebrovascular accident (CVA), unspecified mechanism (HCC) Hx of Care plan as above Gastroesophageal reflux disease, unspecified whether esophagitis present Chronic. Stable Continue PPI Avoid triggers, as able Return in about 1 year (around 12/21/2025) for wellness exam. documented in this encounter [facility] 12-21-2024 Instructions Soraida Redding LPN - 12/21/2024 1:20 PM EDT Feedback Our goal is to provide you with exceptional patient care, and we strive to do this for every patient, every visit. Since we care about you and your experience, you may receive a patient satisfaction survey in the mail, via email or text message from [employer]. We truly welcome your feedback, positive and negative, and ask that you complete the survey to let us know how we are doing. Please skip over any question(s) that may not apply to your visit. Appointment Policy We care about your health and we want to assist you if there is something preventing you from making it to your appointment. We know unexpected events occur that may prevent you from making your appointment and we understand. If you are not able to make it to your appointment, we would greatly appreciate if you could let us know at least 8 business hours prior to your appointment time. Any patients arriving more than 15 minutes after their scheduled appointment will be considered a late arrival and may be asked to reschedule their appointment. Any patient who fails to arrive for a scheduled appointment without canceling will be considered a no show. Any continued late cancellations or missed appointments may result in a need to ask you to find another provider. Referrals If you have been referred to another physician, we will send them your referral and any necessary clinical information. They will call you to schedule your appointment. If you have not heard from the office we are referring you to within 7-10 business days, please give our office a call at or send the provider a [employer] message and we will be happy to assist. Advanced Imaging (MRI, CT, etc.) If your provider ordered advanced imaging during your visit today, you will be contacted by [facility] Central Scheduling. If you would prefer to call Central Scheduling directly, please call . Test & Lab Results Even though you may receive your test results in your MyChart, please allow up to 5 business days to be contacted by our office regarding your results. Be assured, if any test results are critical, our office will contact you as soon as possible to review the results with you. If your labs are normal or abnormal and the provider is not concerned about them, you will receive a [employer] message with these results. If your labs are abnormal or critical, you will receive a phone call with your results. If you have not heard anything about your lab results after 5 business days, please give our office a call at or send the provider a [employer] message and we will be happy to look into this. Medication Refills Our office does not accept refill requests from pharmacies. Please check with you provider at your appointment, and request any refills needed. If any refill is needed outside of a scheduled appointment, please call your pharmacy to verify if you have any refills remaining. If a new prescription is needed, please give our office a call at or send the provider a [employer] message and allow up to 2 business days for us to complete this. If your insurance requires your medication(s) to be prior authorized, we will work with your insurance company to get these medication(s) prior authorized for you. Please allow up to 7-10 business days for this to be completed. [employer] is a wonderful way to communicate with your provider and often allows for quicker response times compared to calling our office. Please consider sending your provider a [employer] message with your non-urgent questions, medication refill requests, or even to schedule an appointment. Please do not use [employer] to send any messages requiring urgent or emergent attention. By selecting to send a message, you acknowledge you are seeking medical advice for non-urgent issues and that you are aware that you may not get a response for 2 business days. Responses are not monitored evenings and weekends. For issues requiring urgent or emergent attention, please call our office at to speak to the provider on-call or call [phone]. Important Numbers Billing Questions or MyChart Support or Medical Financial Assistance Central Scheduling or Thank you for choosing [facility] for your healthcare needs documented in this encounter [facility] 12-03-2024 Telephone encounter Note Jose is requesting a refill for Requested Prescriptions Pending Prescriptions Disp Refills atorvastatin (LIPITOR) 40 MG tablet 90 tablet 3 Sig: Take 1 (one) tablet (40 mg total) by mouth daily . Last refill: 12/11/23 90 tab 3 refills Last appt: 03/12/24 Upcoming appt (when is it due or is it scheduled): 12/21/24 with nicolas jimenez Follow up: Refill pending for review without additional follow up based on information above. [facility] 12-03-2024 Miscellaneous Notes Jose is requesting a refill for Requested Prescriptions Pending Prescriptions Disp Refills atorvastatin (LIPITOR) 40 MG tablet 90 tablet 3 Sig: Take 1 (one) tablet (40 mg total) by mouth daily . Last refill: 12/11/23 90 tab 3 refills Last appt: 03/12/24 Upcoming appt (when is it due or is it scheduled): 12/21/24 with nicolas jimenez Follow up: Refill pending for review without additional follow up based on information above. documented in this encounter [facility] 04-17-2024 Telephone encounter Note Jose is requesting a refill for Requested Prescriptions Pending Prescriptions Disp Refills omeprazole (PRILOSEC) 20 MG capsule 90 capsule 3 Sig: Take 1 (one) capsule (20 mg total) by mouth 2 (two) times a day . Last refill: 03/12/24 Last appt: 03/12/24 Upcoming appt (when is it due or is it scheduled): 06/18/24 Please send to [facility] [place] [facility] AT Portal to Registered [facility] [id number] Follow up: Refill pending for review without additional follow up based on information above. [facility] 04-17-2024 Miscellaneous Notes Jose is requesting a refill for Requested Prescriptions Pending Prescriptions Disp Refills omeprazole (PRILOSEC) 20 MG capsule 90 capsule 3 Sig: Take 1 (one) capsule (20 mg total) by mouth 2 (two) times a day . Last refill: 03/12/24 Last appt: 03/12/24 Upcoming appt (when is it due or is it scheduled): 06/18/24 Please send to [facility] AT Portal to Registered [facility] [id number] Follow up: Refill pending for review without additional follow up based on information above. documented in this encounter [facility] 03-12-2024 Evaluation + Plan note Associated Problem(s): Elevated BP without diagnosis of hypertension Chronic, uncontrolled Declines any medications [facility] 03-12-2024 Miscellaneous Notes Associated Problem(s): Elevated BP without diagnosis of hypertension Chronic, uncontrolled Declines any medications Associated Problem(s): HLD (hyperlipidemia) Chronic, control? Need labs from [place] Associated Problem(s): BPH (benign prostatic hyperplasia) Chronic, controlled Associated Problem(s): GERD (gastroesophageal reflux disease) Chronic, uncontrolled Take omeprazole BID If not better in 3 weeks, refer GI documented in this encounter [facility] 03-12-2024 Evaluation + Plan note Associated Problem(s): HLD (hyperlipidemia) Chronic, control? [facility] 03-12-2024 Evaluation + Plan note Associated Problem(s): BPH (benign prostatic hyperplasia) Chronic, controlled [facility] 03-12-2024 Evaluation + Plan note Associated Problem(s): GERD (gastroesophageal reflux disease) Chronic, uncontrolled Take omeprazole BID If not better in 3 weeks, refer GI [facility] 03-12-2024 Instructions Laureen Diaz CNP - 03/12/2024 9:44 AM EDT Thank you for choosing our office for your Medicare Wellness Visit. Below you will find the plans we discussed today for your future medical treatments. Please keep this plan in a visible location so you can refer to it often and let our office know if you have any questions. 5-Year Plan Health Maintenance Topic Date Due Abdominal Aortic Ultrasound Never done Wellness Visit Never done Tetanus: Every 10yrs 12/10/2024 (Originally 1955) Pneumococcal Vaccine: Age 65+ (2 of 2 - PCV) 12/10/2024 (Originally 06/07/2023) COVID-19 Vaccine (2022-24 season) 2024 (Originally 06/07/2023) Falls Risk Assessment 03/10/2025 Depression Screening (PHQ-2/9) 03/10/2025 PSA Level 05/07/2025 Colorectal Cancer Screening/Monitoring 10/07/2025 Zoster Vaccines Completed Influenza Vaccine Completed Hepatitis C Screening Discontinued STEADI Low Risk Patient Instructions: Your Falls Screening today shows that you are at low risk for falls. To further protect yourself from falls and maintain your independence, we recommend: 1. Read through the brochure, What You Can Do to Prevent Falls (from [facility]). 2. Go through the brochure, Check for Safety: A Home Fall Prevention Checklist for Older Adults (from [facility]), and make changes as recommended. 3. Join a community falls prevention program: Stepping On, a 7-week evidence based program that teaches balance exercises and fall prevention strategies Paul Chi for older adults, group exercise that teaches Paul Chi forms that reduce fall risk (weight shifting, postural alignment and control, and coordinated movements of the arms, legs, head, and trunk) Matter of Balance, an evidence based program designed to reduce the fear of falling and increase activity levels of older adults OR an exercise class for strength and balance. 4. Take your Vitamin D with or without Calcium, as determined by your healthcare provider. 5. Get your vision and hearing checked annually. Falls At Home Each year, thousands of older Americans fall at home. Many of them are seriously injured, and some are disabled. In 2011, nearly 23,000 people over age 65 and 2.4 million were treated in emergency departments because of falls. Falls are often due to hazards that are easy to overlook but easy to fix. This checklist will help you find and fix those hazards in your home. The checklist asks about hazards found in each room of your home. For each hazard, the checklist tells you how to fix the problem. At the end of the checklist, you ll find other tips for preventing falls. FLOORS: Look at the floor in each room. Q: When you walk through a room, do you have to walk around furniture? A. Ask someone to move the furniture so your path is clear Q: Do you have throw rugs on the floor? A. Remove the rugs or use double-sided tape or a non-slip backing so the rugs won t slip. Q: Are there papers, books, towels, shoes, magazines, boxes, blankets, or other objects on the floor? A.ski production supervisor things that are on the floor. Always keep objects off the floor. Q: Do you have to walk over or around wires or cords (like lamp, telephone, or extension cords)? A. Coil or tape cords and wires next to the wall so you can t trip over them. If needed, have an electrician station assistant put in another outlet. STAIRS AND STEPS: Look at the stairs you use both inside and outside your home. Q: Are there papers, shoes, books, or other objects on the stairs? A. ski production supervisor things on the stairs. Always keep objects off stairs. Q: Are some steps broken or uneven? A. Fix loose or uneven steps. Q: Are you missing a light over the stairway? A. Have an electrician station assistant put in an overhead light at the top and bottom of the stairs. Q: Do you have only one light switch for your stairs (only at the top or at the bottom of the stairs)? A. Have an electrician station assistant put in a light switch at the top and bottom of the stairs. You can get light switches that glow. Q: Has the stairway light bulb burned out? A. Have a friend or family member change the light bulb. Q: Is the carpet on the steps loose or torn? A. Make sure the carpet is firmly attached to every step, or remove the carpet and attach non-slip rubber treads to the stairs. Q: Are the handrails loose or broken? Is there a handrail on only one side of the stairs? A. Fix loose handrails or put in new ones. Make sure handrails are on both sides of the stairs and are as long as the stairs. KITCHEN: Look at your kitchen and eating area. Q: Are the things you use often on high shelves? A. Move items in your cabinets. Keep things you use often on the lower shelves (about waist level). Q: Is your step stool unsteady? A. If you must use a step stool, get one with a bar to hold on to. Never use a chair as a step stool. BATHROOMS: Look at all your bathrooms. Q: Is the tub or shower floor slippery? A. Put a non-slip rubber mat or self-stick strips on the floor of the tub or shower. Q: Do you need some support when you get in and out of the tub or up from the toilet? A. Have grab bars put in next to and inside the tub and next to the toilet. BEDROOMS: Look at all your bedrooms. Q: Is the light near the bed hard to reach? A. Place a lamp close to the bed where it s easy to reach. Q: Is the path from your bed to the bathroom dark? A. Put in a night-light so you can see where you re walking. Some night-lights go on by themselves after dark. Other Things You Can Do to Prevent Falls Do exercises that improve your balance and make your legs stronger. Exercise also helps you feel better and more confident. Have your doctor or pharmacist look at all the medicines you take, even [id number] medicines. Some medicines can make you sleepy or dizzy. Have your eyes checked by an eye doctor at least once a year and update your glasses. Get up slowly after you sit or lie down. Wear shoes both inside and outside the house. Avoid going barefoot or wearing slippers. Improve the lighting in your home. Put in brighter light bulbs. Florescent bulbs are bright and cost less to use. It s safest to have uniform lighting in a room. Add lighting to dark areas. Hang lightweight curtains or shades to reduce glare. [employer] a contrasting color on the top edge of all steps so you can see the stairs better. For example, use a light color paint on dark wood. To access this brochure online, please visit the CDC website at http://www.cdc.gov/steadi/pdf/jesus fine_for_safety_brochure-a.pdf Chair Rise Exercise What it does: Strengthens the muscles in your thighs & buttocks. Goal: To do this exercise without using your hands as you become stronger. How to do it: 1. Sit toward the front of a sturdy chair with your knees bent & feet flat on the floor shoulder-width apart 2. Rest your hands lightly on the seat on either side of you, keeping your back & neck straight & and chest slightly forward. 3. Breathe in slowly. Lean forward & feel your weight on the front of your feet. 4. Breathe out and slowly stand up, using your hands as little as possible. 5. Pause for a full breath in & out. 6. Breathe in as you slowly sit down. Do not let yourself collapse back down into the chair. Rather, control your lowering as much as possible. 7. Breathe out. Repeat 10-15 times. If this number is too hard for you when you first start practicing this exercise, begin with fewer and work up to this number. Rest for a minute & then do a final set of 10-15. For detailed instructions, please visit the CDC website at http://www.cdc.gov/steadi/pdf/c hair_rise_exercise-a.pdf Stepping On is an evidence based program proven to reduce falls in older adults. It is a workshop offered once a week for seven weeks. In a small-group setting, you will learn balance exercises and develop specific knowledge and skills to prevent falls. Older adults who should attend are those who: are at risk of falling who have fallen one or more times lives at home are able to walk without the help of another person Local guest experts provide information on exercise, safety, vision, and medications. Classes are offered at [facility]. To find out specifics about a class, please call [phone]. Paul chi: Moving for Better Balance involves low impact exercise. The 12-week class is offered for three hours per week and is led by a trained diving instructor. It is intended for people aged 60 and older. Participants learn and perform a program of eight forms that progress from easy to more difficult. The program can accommodate persons with various physical conditions. Health Benefits of Paul Chi: Moving for Better Balance: Improved social and mental well-being, Improved balance and physical functioning, Improved confidence in conducting daily activities, Reduced risk of falling and sustaining associated injuries, and Maintained independence and improved quality of life. To find a Paul Chi program in your area or additional resources about fall prevention please contact: [facility] Violence and Injury Prevention Program at [phone] or [email or web address] A Matter of Balance: Managing Concerns about Falls is an evidence based program designed to reduce the fear of falling and increase activity levels of older adults. A trained elementary school reading teacher leads 8 two-hour sessions for small groups of older adults. The class is intended for people 60 and older who are at risk of falling have a fear of falling or restrict activities who have fallen in the past are interested in improving flexibility, balance, and strength. Participants will learn to view falls as controllable, set goals to increase activity levels, and reduce fall risks at home. Classes are offered in all [address] [place] [address] in [place]. For more information about specific classes near you, please visit http://aging.[place].gov/steadyu/r esources/matterofbalance.aspx. documented in this encounter [facility] 03-12-2024 Note Subjective: Jose Sweeney is a 68 y.o. male here for a Medicare Annual Wellness Visit. GERD-states increasing burping, burning x 3 weeks. Taking omeprazole x 1 year with some relief at beginning BPH-sees urologist no problems [facility] Hypertension home blood pressure 110-120/60-80, no added salt Review of Systems Constitutional: Negative. HENT: Negative. Eyes: Negative. Respiratory: Negative. Cardiovascular: Negative. Gastrointestinal: Negative for constipation, diarrhea, nausea and vomiting. Endocrine: Negative. Genitourinary: Negative. Musculoskeletal: Negative. Skin: Negative. Neurological: Negative. Psychiatric/Behavioral: Negative. Reviewed by Provider: Tobacco Allergies Meds Problems Med Hx Surg Hx Fam Hx Care Team Patient Care Team: Laureen Daiz CNP as PCP - General (Nurse Practitioner) Pharmacy / Equipment Co. (DME) [facility] [address] [address] [facility] [id number] Medicare Risk Assessment Do you have an Advanced Directive (Living Will and/or Durable Power of French Instructor for Health Care)? If not, would you like more information about Advanced Directives?: Yes What is your exercise level?: Light (like stretching/slow walking) What is your diet?: Regular Can you prepare your own meals?: Yes Do you have trouble with finding transportation?: No Because of any health problems, do you need the help of another person with your personal care needs? (For example, eating, bathing, dressing, or getting around the house.): No Does your home have throw rugs, poor lighting or slippery bathtub or shower?: None of the above Does your home have grab bars in bathrooms or handrails on stairs and steps?: (!) Only handrails on the stairs During the past four weeks, how would you rate your health in general?: Very Good Whether or not you use a hearing aid, do you think you have a hearing problem or do others think you have a hearing problem?: No Whether or not you use glasses or contacts, do you have difficulty driving, watching television, reading, or doing any of your daily activities because of your eyesight?: No In the past six months, have you had an unexplained weight loss of 10 pounds or more?: No Do you take your medications as prescribed?: I do not miss doses of my medications During the past four weeks, how much have you been bothered by emotional problems such as feeling anxious, depressed, irritable, sad, or downhearted and blue?: Slightly During the past four weeks, has your physical and emotional health limited your social activites with family, friends, neighbors, or groups? : Slightly Provider/Supplier Name and Specialty: n/a Falls Risk Assessment Is Patient Ambulatory?: Y Fell in past year: 0 (No) Unsteady when walks: 0 (No) Worried about fallin (No) Advised to use cane/walker?: 0 (No) Holds onto furniture/antonio: 0 (No) Uses hands to stand up from a chair: 0 (No) Trouble stepping onto curb: 0 (No) Rushes to toilet: 0 (No) Lost feeling in feet: 0 (No) Medicine makes me light-headed: 0 (No) Medicine for sleep or mood: 0 (No) Often feel sad/depressed: 0 (No) Patient Self Risk Assessment Score: 0 Medicare Mini Cog Step 1: Three Word Registration Version Used: Version 1: Banana, [place], Chair Step 2: Clock Drawing Step 2 score: Normal clock - 2 points Clock has all numbers placed in the correct sequence & position (e.g., 12, 3, 6 and 9 are in anchor positions) with no missing or duplicate numbers. Hands are pointing to the 11 & 2 (11:10). Hand length is not scored. Step 3: Three Word Recall Record patient's answers to the right: banana, sunrise, chair Step 3: Three Word Recall Score: 3 Words Recalled Total score = Word Recall score + Clock Draw score A cut point of <3 on the Mini-Cog has been validated for dementia screening, but many individuals with clinically meaningful cognitive impairment will score higher. A cut point of <4 may indicate a need for further evaluation of cognitive status.: 5 5-Year Plan: Health Maintenance Topic Date Due Tetanus: Every 10yrs 12/10/2024 (Originally 1955) Pneumococcal Vaccine: Age 65+ (2 of 2 - PCV) 12/10/2024 (Originally 06/07/2023) COVID-19 Vaccine (2022-24 season) 2024 (Originally 06/07/2023) Falls Risk Assessment 03/10/2025 Depression Screening (PHQ-2/9) 03/10/2025 Wellness Visit 03/12/2025 PSA Level 05/07/2025 Colorectal Cancer Screening/Monitoring 10/07/2025 Abdominal Aortic Ultrasound Completed Zoster Vaccines Completed Influenza Vaccine Completed Hepatitis C Screening Discontinued Immunization History Administered Date(s) Administered Melodie SARS-CoV-2 Vaccination 12/17/2020 Moderna Bivalent Booster:6-11 YRS 0.25mL; 12+YRS 0.5mL 08/27/2022 Moderna SARS-CoV-2 Vaccination 08/24/2021 Objective: BP (!) 1 (more content not included)... [facility] 03-12-2024 History of Presen t illness Narrative Subjective: Jose Sweeney is a 68 y.o. male here for a Medicare Annual Wellness Visit. GERD-states increasing burping, burning x 3 weeks. Taking omeprazole x 1 year with some relief at beginning BPH-sees urologist no problems HLD-[facility] Hypertension home blood pressure 110-120/60-80, no added salt Review of Systems Constitutional: Negative. HENT: Negative. Eyes: Negative. Respiratory: Negative. Cardiovascular: Negative. Gastrointestinal: Negative for constipation, diarrhea, nausea and vomiting. Endocrine: Negative. Genitourinary: Negative. Musculoskeletal: Negative. Skin: Negative. Neurological: Negative. Psychiatric/Behavioral: Negative. Reviewed by Provider: Tobacco Allergies Meds Problems Med Hx Surg Hx Fam Hx Care Team Patient Care Team: Laureen Diaz OFFSET LITHOGRAPHIC PRESS OPERATOR as PCP - General (Nurse Practitioner) Pharmacy / Equipment Co. (DME) [facility] [address] [facility] [address] [facility] [id number] Medicare Risk Assessment Do you have an Advanced Directive (Living Will and/or Durable Power of French Instructor for Health Care)? If not, would you like more information about Advanced Directives?: Yes What is your exercise level?: Light (like stretching/slow walking) What is your diet?: Regular Can you prepare your own meals?: Yes Do you have trouble with finding transportation?: No Because of any health problems, do you need the help of another person with your personal care needs? (For example, eating, bathing, dressing, or getting around the house.): No Does your home have throw rugs, poor lighting or slippery bathtub or shower?: None of the above Does your home have grab bars in bathrooms or handrails on stairs and steps?: (!) Only handrails on the stairs During the past four weeks, how would you rate your health in general?: Very Good Whether or not you use a hearing aid, do you think you have a hearing problem or do others think you have a hearing problem?: No Whether or not you use glasses or contacts, do you have difficulty driving, watching television, reading, or doing any of your daily activities because of your eyesight?: No In the past six months, have you had an unexplained weight loss of 10 pounds or more?: No Do you take your medications as prescribed?: I do not miss doses of my medications During the past four weeks, how much have you been bothered by emotional problems such as feeling anxious, depressed, irritable, sad, or downhearted and blue?: Slightly During the past four weeks, has your physical and emotional health limited your social activites with family, friends, neighbors, or groups? : Slightly Provider/Supplier Name and Specialty: n/a Falls Risk Assessment Is Patient Ambulatory?: Y Fell in past year: 0 (No) Unsteady when walks: 0 (No) Worried about fallin (No) Advised to use cane/walker?: 0 (No) Holds onto furniture/antonio: 0 (No) Uses hands to stand up from a chair: 0 (No) Trouble stepping onto curb: 0 (No) Rushes to toilet: 0 (No) Lost feeling in feet: 0 (No) Medicine makes me light-headed: 0 (No) Medicine for sleep or mood: 0 (No) Often feel sad/depressed: 0 (No) Patient Self Risk Assessment Score: 0 Medicare Mini Cog Step 1: Three Word Registration Version Used: Version 1: Banana, [place], Chair Step 2: Clock Drawing Step 2 score: Normal clock - 2 points Clock has all numbers placed in the correct sequence & position (e.g., 12, 3, 6 and 9 are in anchor positions) with no missing or duplicate numbers. Hands are pointing to the 11 & 2 (11:10). Hand length is not scored. Step 3: Three Word Recall Record patient's answers to the right: banana, sunrise, chair Step 3: Three Word Recall Score: 3 Words Recalled Total score = Word Recall score + Clock Draw score A cut point of <3 on the Mini-Cog has been validated for dementia screening, but many individuals with clinically meaningful cognitive impairment will score higher. A cut point of <4 may indicate a need for further evaluation of cognitive status.: 5 5-Year Plan: Health Maintenance Topic Date Due Tetanus: Every 10yrs 12/10/2024 (Originally 1955) Pneumococcal Vaccine: Age 65+ (2 of 2 - PCV) 12/10/2024 (Originally 06/07/2023) COVID-19 Vaccine (4 - 2022-24 season) 2024 (Originally 06/07/2023) Falls Risk Assessment 03/10/2025 Depression Screening (PHQ-2/9) 03/10/2025 Wellness Visit 03/12/2025 PSA Level 05/07/2025 Colorectal Cancer Screening/Monitoring 10/07/2025 Abdominal Aortic Ultrasound Completed Zoster Vaccines Completed Influenza Vaccine Completed Hepatitis C Screening Discontinued Immunization History Administered Date(s) Administered Melodie SARS-CoV-2 Vaccination 12/17/2020 Moderna Bivalent Booster:6-11 YRS 0.25mL; 12+YRS 0.5mL 08/27/2022 Moderna SARS-CoV-2 Vaccination 08/24/2021 Objective: BP (!) 147/88 Pulse 63 Temp 98.3 F (36.8 C) (Temporal) Ht 6' 1 Wt 74.6 kg (164 lb 6.4 oz) SpO2 98% BMI 21.69 kg/m Hearing/Vision Screen No results found. Physical Exam Constitutional: General: He is not in acute distress. Appearance: Normal appearance. He is normal weight. He is not ill-appearing or toxic-appearing. HENT: Right Ear: There is impacted cerumen. Left Ear: There is impacted cerumen. Mouth/Throat: Mouth: Mucous membranes are moist. Eyes: Extraocular Movements: Extraocular movements intact. Pupils: Pupils are equal, round, and reactive to light. Cardiovascular: Rate and Rhythm: Normal rate and regular rhythm. Pulses: Normal pulses. Heart sounds: Normal heart sounds. Pulmonary: Effort: Pulmonary effort is normal. Breath sounds: Normal breath sounds. Abdominal: General: Abdomen is flat. Bowel sounds are normal. Palpations: Abdomen is soft. Musculoskeletal: General: Normal range of motion. Cervical back: Normal range of motion and neck supple. Skin: General: Skin is warm. Capillary Refill: Capillary refill takes less than 2 seconds. Neurological: Mental Status: He is alert and oriented to person, place, and time. Psychiatric: Mood and Affect: Mood normal. Behavior: Behavior normal. Thought Content: Thought content normal. Judgment: Judgment normal. Assessment/Plan: Diagnoses and all orders for this visit: General medical exam Personal history of tobacco use At low risk for fall Gastroesophageal reflux disease, unspecified whether esophagitis present - omeprazole (PRILOSEC) 20 MG capsule; Take 1 (one) capsule (20 mg total) by mouth 2 (two) times a day . Benign prostatic hyperplasia, unspecified whether lower urinary tract symptoms present Mixed hyperlipidemia Bilateral impacted cerumen - Ear wax removal Elevated BP without diagnosis of hypertension Vaccinations today per orders. Vaccination counseling provided including which vaccinations are to be administered today, their indication(s), and potential side effects. All questions answered. [facility] vaccine information sheet provided for each vaccine administered. I am managing Jose Sweeney for complex chronic condition(s) serving as the focal point for the patient's care for consistency and continuity over time. Return in about 3 months (around 06/12/2024) for Recheck b/p . Patient Instructions (the written plan) and additional handouts provided to the patient with their After Visit Summary. 12/11/2023 10:59 AM 03/10/2024 12:00 PM 03/12/2024 9:46 AM Depression Screening Little interest or pleasure in doing things 0 0 0 Feeling down, depressed, or hopeless 0 0 0 PHQ-2 Total Score 0 0 0 Trouble falling or staying asleep, or sleeping too much 0 0 Feeling tired or having little energy 0 0 Poor appetite or overeating 0 0 Feeling bad about yourself - or that you are a failure or have let yourself or your family down 0 0 Trouble concentrating on things, such as reading the newspaper or watching television 0 0 Moving or speaking so slowly that other people could have noticed. Or the opposite - being so fidgety or restless that you have been moving around a lot more than usual 0 0 Thoughts that you would be better off , or of hurting yourself in some way 0 0 PHQ-9 Total Score 0 0 If you checked off any problems, how difficult have these problems made it for you to do your work, take care of things at home, or get along with other people? Not difficult at all documented in this encounter [facility] 03-10-2024 History of Presen t illness Narrative Spoke to patient at this time, agreeable to completion of wellness visit at next scheduled appointment. [facility] outreach completed with patient. Flowsheets completed and filed and appointment type updated. Health Maintenance Due Name Date Due Outreach Comments Do you have an Advanced Directive (Living Will and/or Durable Power of French Instructor for Health Care)? If not, would you like more information about Advanced Directives?: Yes What is your exercise level?: Light (like stretching/slow walking) What is your diet?: Regular Can you prepare your own meals?: Yes Do you have trouble with finding transportation?: No Because of any health problems, do you need the help of another person with your personal care needs? (For example, eating, bathing, dressing, or getting around the house.): No During the past four weeks, how would you rate your health in general?: Very Good Whether or not you use a hearing aid, do you think you have a hearing problem or do others think you have a hearing problem?: No Whether or not you use glasses or contacts, do you have difficulty driving, watching television, reading, or doing any of your daily activities because of your eyesight?: No In the past six months, have you had an unexplained weight loss of 10 pounds or more?: No Do you take your medications as prescribed?: I do not miss doses of my medications During the past four weeks, how much have you been bothered by emotional problems such as feeling anxious, depressed, irritable, sad, or downhearted and blue?: Slightly During the past four weeks, has your physical and emotional health limited your social activites with family, friends, neighbors, or groups? : Slightly Provider/Supplier Name and Specialty: n/a Is Patient Ambulatory?: Y Fell in past year: 0 (No) Unsteady when walks: 0 (No) Worried about fallin (No) Advised to use cane/walker?: 0 (No) Holds onto furniture/antonio: 0 (No) Uses hands to stand up from a chair: 0 (No) Trouble stepping onto curb: 0 (No) Rushes to toilet: 0 (No) Lost feeling in feet: 0 (No) Medicine makes me light-headed: 0 (No) Medicine for sleep or mood: 0 (No) Often feel sad/depressed: 0 (No) Patient Self Risk Assessment Score: 0 Over the last 2 weeks, how often have you been bothered by any of the following problems? Little interest or pleasure in doing things: Not at all Feeling down, depressed, or hopeless: Not at all PHQ-2 Total Score: 0 Trouble falling or staying asleep, or sleeping too much: Not at all Feeling tired or having little energy: Not at all Poor appetite or overeating: Not at all Feeling bad about yourself - or that you are a failure or have let yourself or your family down: Not at all Trouble concentrating on things, such as reading the newspaper or watching television: Not at all Moving or speaking so slowly that other people could have noticed. Or the opposite - being so fidgety or restless that you have been moving around a lot more than usual: Not at all Thoughts that you would be better off , or of hurting yourself in some way: Not at all PHQ-9 Total Score: 0 If you checked off any problems, how difficult have these problems made it for you to do your work, take care of things at home, or get along with other people?: Not difficult at all Zuleyka Kim MA documented in this encounter [facility] 12-11-2023 Evaluation + Plan note Associated Problem(s): TIA (transient ischemic attack) Chronic, controlled [facility] 12-11-2023 Evaluation + Plan note Associated Problem(s): BPH (benign prostatic hyperplasia) Chronic, controlled [facility] 12-11-2023 Evaluation + Plan note Associated Problem(s): HLD (hyperlipidemia) Chronic, controlled? [facility] 12-11-2023 Evaluation + Plan note Associated Problem(s): Elevated BP without diagnosis of hypertension Chronic, control? Discussed lisinopril-patient declines at this time [facility] 12-11-2023 Miscellaneous Notes Associated Problem(s): TIA (transient ischemic attack) Chronic, controlled Associated Problem(s): BPH (benign prostatic hyperplasia) Chronic, controlled Associated Problem(s): HLD (hyperlipidemia) Chronic, controlled? Associated Problem(s): Elevated BP without diagnosis of hypertension Chronic, control? Discussed lisinopril-patient declines at this time documented in this encounter [facility] 12-11-2023 History of Presen t illness Narrative OFFICE VISIT PROGRESS NOTE HPI patient here to get established Hypertension-home blood pressure 120-130/70-80, no added salt TIA-last 2019-no issues since [facility] The following portions of the patient's history were reviewed and updated as appropriate: allergies, current medications and problem list. The patient's surgical, family, and social history was reviewed and updated as appropriate. Review of Systems Review of Systems Constitutional: Negative. Respiratory: Negative. Cardiovascular: Negative. Gastrointestinal: Negative. Genitourinary: Negative. Neurological: Negative. Psychiatric/Behavioral: Negative. Vitals: 12/11/23 1055 12/11/23 1122 BP: (!) 158/72 131/79 BP Location: Left arm Patient Position: Sitting BP Cuff Size: Adult Pulse: (!) 59 Temp: 98.7 F (37.1 C) TempSrc: Temporal SpO2: 95% Weight: 89.1 kg (196 lb 8 oz) Height: 6' 1 Body mass index is 25.93 kg/m . Physical Exam Physical Exam Constitutional: General: He is not in acute distress. Appearance: Normal appearance. He is normal weight. He is not ill-appearing or toxic-appearing. Neck: Vascular: Carotid bruit present. Comments: Right > left-patient states [facility] watching Cardiovascular: Rate and Rhythm: Normal rate and regular rhythm. Pulses: Normal pulses. Heart sounds: Normal heart sounds. Pulmonary: Effort: Pulmonary effort is normal. Breath sounds: Normal breath sounds. Abdominal: General: Abdomen is flat. Bowel sounds are normal. Palpations: Abdomen is soft. Musculoskeletal: Cervical back: Neck supple. Right lower leg: No edema. Left lower leg: No edema. Skin: General: Skin is warm. Neurological: Mental Status: He is alert and oriented to person, place, and time. Psychiatric: Mood and Affect: Mood normal. Behavior: Behavior normal. Thought Content: Thought content normal. Judgment: Judgment normal. OARRS/NARxCHECK Report Received and Assessed: No data found Date controlled substance agreement signed: No data found Date of last drug screen: No data found Functional Assessment: No data found Assessment/Plan Problem List Items Addressed This Visit HLD (hyperlipidemia) - Primary Chronic, controlled? Relevant Medications atorvastatin (LIPITOR) 40 MG tablet TIA (transient ischemic attack) Chronic, controlled Relevant Medications omeprazole (PRILOSEC) 20 MG capsule BPH (benign prostatic hyperplasia) Chronic, controlled Elevated BP without diagnosis of hypertension Chronic, control? Discussed lisinopril-patient declines at this time Need old records Return in about 3 months (around 03/12/2024) for Recheck HTN. If any referrals were placed at today's visit the patient was instructed to call the office if they havn't heard anything about the referral within 2 weeks of today's visit. For any new medications prescribed today, patient was educated about indications for the medication, how to take the medication and potential side effects of the medications. Laureen Diaz CNP 12/11/2023 10:59 AM Depression Screening Little interest or pleasure in doing things 0 Feeling down, depressed, or hopeless 0 PHQ-2 Total Score 0 Trouble falling or staying asleep, or sleeping too much 0 Feeling tired or having little energy 0 Poor appetite or overeating 0 Feeling bad about yourself - or that you are a failure or have let yourself or your family down 0 Trouble concentrating on things, such as reading the newspaper or watching television 0 Moving or speaking so slowly that other people could have noticed. Or the opposite - being so fidgety or restless that you have been moving around a lot more than usual 0 Thoughts that you would be better off , or of hurting yourself in some way 0 PHQ-9 Total Score 0 documented in this encounter [facility] 09-11-2022 Hospital Discharg e instructions Ambulatory [id number] Lead EKG [CVS] Time Frame: 09/11/22, Location: None Selected [facility] Work Phone: Evaluation note No assessment inform ation available [facility] Work Phone: Evaluation note Diagnosis Mixed hyperlipidemia- Primary Gastroesophageal reflux disease, unspecified whether esophagitis present TIA (transient ischemic attack) Unspecified transient cerebral ischemia Benign prostatic hyperplasia, unspecified whether lower urinary tract symptoms present Elevated BP without diagnosis of hypertension [facility] General medical exam- Primary Unspecified general medical examination Personal history of tobacco use Personal history of tobacco use, presenting hazards to health At low risk for fall Gastroesophageal reflux disease, unspecified whether esophagitis present Benign prostatic hyperplasia, unspecified whether lower urinary tract symptoms present Mixed hyperlipidemia Bilateral impacted cerumen Impacted cerumen Elevated BP without diagnosis of hypertension [facility] [place] [facility]* Diagnosis Gastroesophageal reflux disease, unspecified whether esophagitis present [facility] [place] [facility] Diagnosis Mixed hyperlipidemia- Primary Gastroesophageal reflux disease, unspecified whether esophagitis present TIA (transient ischemic attack) Unspecified transient cerebral ischemia Benign prostatic hyperplasia, unspecified whether lower urinary tract symptoms present Elevated BP without diagnosis of hypertension General medical exam- Primary Unspecified general medical examination Personal history of tobacco use Personal history of tobacco use, presenting hazards to health At low risk for fall Gastroesophageal reflux disease, unspecified whether esophagitis present Benign prostatic hyperplasia, unspecified whether lower urinary tract symptoms present Mixed hyperlipidemia Bilateral impacted cerumen Impacted cerumen Elevated BP without diagnosis of hypertension Mixed hyperlipidemia [facility] Diagnosis Mixed hyperlipidemia- Primary Gastroesophageal reflux disease, unspecified whether esophagitis present TIA (transient ischemic attack) Unspecified transient cerebral ischemia Benign prostatic hyperplasia, unspecified whether lower urinary tract symptoms present Elevated BP without diagnosis of hypertension General medical exam- Primary Unspecified general medical examination Personal history of tobacco use Personal history of tobacco use, presenting hazards to health At low risk for fall Gastroesophageal reflux disease, unspecified whether esophagitis present Benign prostatic hyperplasia, unspecified whether lower urinary tract symptoms present Mixed hyperlipidemia Bilateral impacted cerumen Impacted cerumen Elevated BP without diagnosis of hypertension Mixed hyperlipidemia- Primary Cerebrovascular accident (CVA), unspecified mechanism (HCC) Gastroesophageal reflux disease, unspecified whether esophagitis present documented in this encounter [facility] note* Diagnosis Mixed hyperlipidemia- Primary Gastroesophageal reflux disease, unspecified whether esophagitis present TIA (transient ischemic attack) Unspecified transient cerebral ischemia Benign prostatic hyperplasia, unspecified whether lower urinary tract symptoms present Elevated BP without diagnosis of hypertension General medical exam- Primary Unspecified general medical examination Personal history of tobacco use Personal history of tobacco use, presenting hazards to health At low risk for fall Gastroesophageal reflux disease, unspecified whether esophagitis present Benign prostatic hyperplasia, unspecified whether lower urinary tract symptoms present Mixed hyperlipidemia Bilateral impacted cerumen Impacted cerumen Elevated BP without diagnosis of hypertension Mixed hyperlipidemia- Primary Cerebrovascular accident (CVA), unspecified mechanism (HCC) Gastroesophageal reflux disease, unspecified whether esophagitis present Mixed hyperlipidemia documented in this encounter [facility] note* Diagnosis Mixed hyperlipidemia- Primary Gastroesophageal reflux disease, unspecified whether esophagitis present TIA (transient ischemic attack) Unspecified transient cerebral ischemia Benign prostatic hyperplasia, unspecified whether lower urinary tract symptoms present Elevated BP without diagnosis of hypertension General medical exam- Primary Unspecified general medical examination Personal history of tobacco use Personal history of tobacco use, presenting hazards to health At low risk for fall Gastroesophageal reflux disease, unspecified whether esophagitis present Benign prostatic hyperplasia, unspecified whether lower urinary tract symptoms present Mixed hyperlipidemia Bilateral impacted cerumen Impacted cerumen Elevated BP without diagnosis of hypertension Mixed hyperlipidemia- Primary Cerebrovascular accident (CVA), unspecified mechanism (HCC) Gastroesophageal reflux disease, unspecified whether esophagitis present Gastroesophageal reflux disease, unspecified whether esophagitis present documented in this encounter [facility] note* Diagnosis Onset Date Resolution Status Admit Date Malignant melanoma of skin noneactiv e July 01, 2025 10:02am [facility] [employer] [facility] Work Phone: Progress note Author Geraldo Cardenas [facility] Note Date/Time July 01, 2025 10:42am [facility] [address] [place], [place] [id number] OFFICE VISIT Date of Service: 07/01/25 MR#: [id number] Acct: [id number] Name: JOSE SWEENEY Rep #: [id number] : [id number] Provider: Dr. Lane Cardenas MD Age/Sex: 69/M Location[place] [facility] Status: Signed Intake Vital Signs 3 09/14/22 10:40 07/01/25 10:28 Height 6 ft 1 in 6 ft 1 in Weight: 170 lb BMI 22.4 BP 154/77 H Blood Pressure Location Rt brachial Position Sitting Respiration 18 Pulse 70 Temp 98.1 F Temp Source Temporal Pulse Oximetry (%) 96 Oxygen Delivery Method room air Intake Visit Reasons: Melanoma Chief Complaint: melanoma right calf Is patient in pain?: No Allergies No Known Allergies Allergy (Verified 07/01/25 10:29) Medications 3 ?Medication ?Instructions ?Recorded ?Confirmed ?Type aspirin 81 mg chewable tablet 81 mg PO DAILY@0800 ##30 04/02/20 07/01/25 Rx Held on 09/14/22. Instructions: Resume on 09/28/22. atorvastatin 40 mg tablet 40 mg PO QHS #30 tabs 07/01/25 Rx omeprazole 20 mg capsule,delayed 20 mg PO DAILY 07/01/25 History release Have you fallen in the past year?: No PFSH Medical History Wears glasses Prostate disease High cholesterol Heartburn Gastric reflux Former smoker History of echocardiogram (~04/02/20) Patient denies significant medical history Surgical History S/P TURP History of wisdom tooth extraction History of hernia surgery (~1979) Social History Smoking Status: Former smoker how long ago did patient quit smokin years ago substance use type: marijuana additional social history: pt denies vaping, pt uses marijuana, uses edibles, take daily aspirin and uses ibuprofen Denies blood disorder, pt reports had a stroke. HPI Malignant melanoma of skin Details: The patient is a 69-year-old male presenting with a melanoma on the right proximal calf. The lesion was initially identified as a mole-like spot that was present for approximately 4 months and biopsied by Dr. Marsh, dermatology, revealing melanoma with a Breslow depth of 0.6 mm. There was reportedly no ulceration andthere was <1 mitotic rate and no lymphatic spread on the shave biopsy (T1A lesion). He presents today for wide local excision consultation. The patient has a history of a stroke five years ago, attributed to hyperlipidemia, with no residual deficits reported. He is currently on aspirin and a statin for cholesterol management. ROS: - Integumentary: Reports a mole-like lesion on the right proximal calf for four months - Neurological: Denies any residual deficits post-stroke. He reports that he initially had right-sided weakness but this resolved and he has been on aspirin and cholesterol medicines ever since to prevent another stroke. Attestation: Documentation on this patient encounter was supported using ambient scribe technology/ voice AI technology. The patient consented to recording for the purpose of documenting the encounter. Provider reviewed content of the generatednote prior to signature. ROS General General: Yes good health; No fatigue, fever(s) or weight loss HENMT HENMT: No rhinitis, sore throat/mouth sore, nasal congestion, contacts or glaucoma Endo Endocrine: No thyroid disease, polydipsia, heat intolerance, cold intolerance, hepatitis or excessive urine Skin Skin: No Bleeding, bruising, changing moles or suspicious lesion Musc Musculoskeletal: No joint pain, joint stiffness, muscle weakness, back pain, osteoarthritis or Muscle aches/ myalgia Neuro Neurological: No headache(s), No lightheadedness and No numbness Cardio Cardiovascular: No chest pain, pacemaker, fatigue or shortness of breat with exertion Psych Psychiatric: No depression, claustrophobia or anxiety Resp Respiratory: No spitting up, shortness of breath, sleep apnea, asthma, emphysema, TB, Cough or Smoker Gastro Gastrointestinal: No diarrhea, constipation, blood in stool, nausea, vomiting orabdominal bloating Manoj Hematologic: No anemia, No bleeding and No abnormal bleeding Genitourinary: No urinary frequency, blood in urine or incontinence Exam Details - Skin: Examination of the right proximal medial posterior calf revealed healingskin/scab at the biopsy site (correct site confirmed with patient and consistentwith notes) - Lymphatic: No inguinal or popliteal lymphadenopathy detected Minimal skin laxity for appropriate primary closure without excessive tension Coding Level of Care Code Off vis,new,level 3 Diagnoses Malignant melanoma of skin C43.9 Assessment and Plan (No Qualifiers) Assessment and Plan (1) Malignant melanoma of skin: Plan: Patient has a malignant melanoma with a 0.6 mm Breslow depth I talked to him extensively about melanoma and indications for sentinel node. His melanoma is thin enough and without high-grade features where we can defer asentinel node, and he was in agreement with this plan. The treatment will be wide local excision of the biopsy site with 1 cm margins. I talked him about reconstruction of the defect once we have permanent margins (first placement of cadaver allograft). He was in agreement with this plan for split-thickness skin graft as this would be the simplest reconstruction that would get him healed the quickest. He is happy with this plan. I talked to the patient extensively about the risks of surgery, including bleeding, infection, damage to surrounding structures, poor scaring, surgical site dehiscence and wound formation, need for wound care, recurrence of the melanoma despite our best efforts, need for repeat operations, failure to obtainthe desired result, DVT/PE, and the risks of anesthesia including , including stroke (from low blood pressure/ischemia or clot). The benefits andalternatives of this surgery were also discussed. All of their questions were answered, and they agreed to proceed with surgery. Clinical Quality Measures Falls Risk Screening/Assistive Devices Have you fallen in the past year?: No 07/01/25 8550 <Electronically signed by Geraldo Cardenas MD> Date _ Geraldo Cardenas MD Cosigner Signature: Date (if applicable) CC: ~ [facility] Work Phone: Reason for referral (narrative)No reason for referral information availableBlHighland Springs [facility] Work Phone: Summary Purpose Family History No Family History Records Found Relationship Condition Age at Onset Recorded Date/T brittaney Unknown Family History?Cancer Unknown March 082019 8:59pm Family History?Stroke Unknown March 082019 8:59pm Relationship Condition Age at Onset Recorded Date/T brittaney Unknown Family History?Cancer Unknown March 082019 7:59pm Family History?Stroke Unknown March 082019 7:59pm Advance Directives No Advanced Directives Records Found Advance Directive Response Recorded Date/ Time Living Will Yes April 01, 2020 9:34pm Power of French Instructor Yes April 01 9:34pm Advance Directive Response Recorded Date/ Time Name of Medical Power of French Instructor DRE URBINA September 14, 2022 10:40am Living Will Yes September 14 10:40am Power of French Instructor Yes September 14, 2022 10:40am Advance Directive Response Recorded Date/ Time Living Will Yes September 14 11:40am Power of French Instructor Yes September 14, 2022 11:40am Chief Complaint and Reason for Visit Chief Complaint SUPRAPUBIC MASS SUPRAPUBIC MASS Chief Complaint SUPRAPUBIC MASS SUPRAPUBIC MASS CYSTO, TURP, OLYMPUS Chief Complaint Admit Date Melanoma July 01, 2025 10:02am Reason for Visit Admit Date Malignant melanoma of skin June 10:02am Additional Source Comments (unrecognized sect ion and content) No Status Records FoundNo Status Records FoundNo Status Records FoundNo Status Records Found INFORMATION SOURCE (unrecogn ized section and content) DATE CREATED AUTHOR 01/17/2019 [facility] DATE CREATED AUTHOR AUTHOR'S ORGANIZ ATION 05/19/2020 [facility] DATE CREATED AUTHOR AUTHOR'S ORGANIZ ATION 12/23/2024 [facility] DATE CREATED AUTHOR AUTHOR'S ORGANIZ ATION 07/22/2025 [facility] Goals (unrecognized section and content) Goals may be documented in a n alternate sectionGoals may be documented in an alternate sectionGoals may be documented in an alternate sectionGoals may be documented in an alternate section Care Teams (unrecognized sec tion and content) Team Status: Active Member Role Status Dates Dr. Mari Mnotoya MD Primary Care Provider Active Team Status: Inactive Member Role Status Dates Dr. Mari Montoya MD Primary Care Provider Active Dr. Min Stout MD Attending Provider, Referr ing Provider Active Electric Lineman Relationship Specialty Start Date End Date CecilianishLaureen rivera CNP [address] [place] [address] PCP - General Nurse Practitioner 12/11/23 Electric Lineman Relationship Specialty Start Date End Date Laureen Diaz CNP [address] [place] [address] PCP - General Nurse Practitioner 12/11/23 Electric Lineman Relationship Specialty Start Date End Date Laureen Diaz CNP [address] [place] [address] PCP - General Nurse Practitioner 12/11/23 Electric Lineman Relationship Specialty Start Date End Date Laureen Diaz CNP [address] [place] [address] PCP - General Nurse Practitioner 12/11/23 Electric Lineman Relationship Specialty Start Date End Date [facility] [address] [place] [address] PCP - General Nurse Practitioner 12/11/23 Electric Lineman Relationship Specialty Start Date End Date Nicolas Jimenez CNP [address] [place] [address] PCP - General Family Medicine 12/21/24 Electric Lineman Relationship Specialty Start Date End Date Nicolas Jimenez CNP [address] [place] [address] PCP - General Family Medicine 12/21/24 Team Status: Inactive Member Role/Relationship Status Dates Dr. Geraldo Cardenas MD Attending physician Active Start: July 01, 2025 End: July 01, 2025 Reason for Visit (unrecogniz ed section and content) Reason Comments Establish Care Previous PCP-Dr. Cochran check AHNNeeding medication refilled. Gap Closure (Health Maintenance) PSA Lev el Never doneTetanus: Every 10yrs Never doneColorectal Cancer Screening/Monitoring Never doneWellness Visit Never doneDepression Screening (PHQ-2/9) Never doneHepatitis C Screening Never doneFalls Risk Assessment Never donePneumococcal Vaccine: Age 65+(2 of 2 - PCV) due on 06/07/2023OVID-19 Vaccine(2022- season) due on 06/07/2023 Reason Onset Date Comments Medicare wellness outreach 03/10/2024 OV Reason Onset Date Comments Medicare Wellness Visit Has hear tburn Hypertension Has home log. Gap Closure (Health Maintenance) Abdominal Aortic Ultrasound Never doneWellness Visit Never done Fall Risk Screening 03/12/2024 Reason Onset Date Comments Medication Refill 04/17/2024 Reason Onset Date Comments Medication Refill 12/03/2024 Reason Comments Hypertension Home: 130's/70's Thi s mornin/77 Gap Closure (Health Maintenance) Tetanus : Every 10yrs Never donePneumococcal Vaccine: Age 50+(2 of 2 - PCV) due on 06/07/2023 Reason Onset Date Comments Medication Refill 03/04/2025 Reason Onset Date Comments Medication Refill 04/14/2025 FOR RECORDS PERTAINING TO PATIENTS WHO ARE OR HAVE BEEN ENROLLED IN A CHEMICAL DEPENDENCY/SUBSTANCEABUSE PROGRAM, SOME INFORMATION MAY BE OMITTED. This clinical summary was aggregated from multiple sources. Caution should be exercised in using it in the provision of clinical care. This summary normalizes information from multiple sources, and as a consequence, information in this document may materially change the coding, format and clinical context of patient data. In addition, data may be omitted in some cases. CLINICAL DECISIONS SHOULD BE BASED ON THE PRIMARY CLINICAL RECORDS. [employer] provides no warranty or guarantee of the accuracy or completeness of information in this document.
[2025-07-23] MEDS: Lactated Ringers 1,000 ML 15 ML IV (06:31)
--- NOTE | 2025-07-23 07:05 | PCM.PRE.AN2 ---
ASA Classification* ASA Classification ASA Classification: 2 Assessment & Plan Anesthesia* Anesthesia Assessment Anesthesia Assessment: Discussed sedation and/or anesthesia options, risks, benefits, and alternatives with patient/parents/legal guardian/POA. Questions invited. The patient/parents/legal guardian/POA seems to understand and agrees to proceed with anesthesia plan. Reviewed the physical assessment, medical history, allergy history and patient home medications list prior to surgery/procedure/anesthetic and documented any changes. Performed airway and anesthesia risk assessments. Anesthesia Type Anesthesia Type: General Anesthesia Focused Assessment* Temperature: 97.2 F Pulse Rate: 58 Blood Pressure: 151/74 Respiratory Rate: 16 Pulse Ox: 97 Airway Assessment Mouth opens: >3 cm Mallampati Score: II Labs Anesthesia Preop lab: CBC WBC, (4.4-11.0) 6.5 K/mm3 09/11/22, : RBC, (4.6-6.2) 4.68 M/mm3 09/11/22, : Hgb, (13.0-16.5) 14.4 g/dL 09/11/22, : Hct, (40-54) 42.0 % 09/11/22, : Plt Count, (150-450) 245 K/mm3 09/11/22, :23 CHEMISTRY Potassium, (3.5-5.1) 4.1 mmol/L 09/11/22, : Sodium, (136-145) 138 mmol/L 09/11/22, : BUN, (7-18) 15 mg/dL 09/11/22, : Creatinine, (0.70-1.30) 0.95 mg/dL 09/11/22, : Glucose, (74-106) 115 mg/dL H 09/11/22, :23 POC Glucose, (70-110) 124 mg/dL H 04/01/20, 19:20 COAG PT, (11.7-14.9) 12.9 SECONDS 04/01/20, 19:20 Pre-Assessment Diagnosis/Proposed Procedure Planned Operative Procedure(s): right leg skin graft Anesthesia History 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 When Was Last Pacemaker Check QUESTION #4 FULL TEXT: You/Your Family Experience fever (hyperthermia) with Anesthesia Last Oral Intake Last Oral intake: Last Oral Intake NPO since 04:00 07/23/25 06:24 Meds taken in AM with sips of water? Meds patient instructed to take am of surgery PONV PONV - venetian blind worker: PONV - venetian blind worker Female No 07/14/25 09:47 HX of Motion Sickness No 07/14/25 09:47 HX of N/V After Surgery No 07/14/25 09:47 Non-Smoker Yes 07/14/25 09:47 Duration of Surgery greater Yes 07/14/25 09:47 than 60 minutes Number of Risk Factors 2 07/14/25 09:47 PONV Score Moderate Risk 07/14/25 09:47 Height & Weight Height & Weight: Anesthesia: Height & Weight Height 6 ft 1 in 07/23/25 06:24 Weight: 75 kg 07/23/25 06:24 Body Mass Index (BMI) 21.8 07/23/25 06:24 Respiratory Assessment Respiratory Assessment - venetian blind worker: Respiratory Tract Infection Hx - venetian blind worker Hx Respiratory Tract Infection No 07/14/25 09:47 STOP Sleep Apnea STOP Sleep Apnea - venetian blind worker: STOP Sleep Apnea - venetian blind worker Hx Hypertension No 07/14/25 09:47 Hx Sleep Apnea No 07/14/25 09:47 CPAP No 07/14/25 09:47 BIPAP Do you snore loudly (louder No 07/14/25 09:47 than talking or can be heard Do you often feel tired/ No 07/14/25 09:47 fatigued/ sleepy during daytime? Has anyone observed you stop No 07/14/25 09:47 breathing during sleep? STOP Results Negative 07/14/25 09:47 QUESTION #5 FULL TEXT : Do you snore loudly (louder than talking or can be heard through closed doors)? Tobacco Use History Tobacco Use History - venetian blind worker: Tobacco Use History - venetian blind worker Tobacco Use Smoking Status Former smoker 07/14/25 09:47 Hx Tobacco Use No 07/14/25 09:47 Years Smoking Packs Smoked per Day Smoking Cessation Date was No - quit smoking greater 07/14/25 09:47 within the last 15 years than 15 years ago Hx Smoking Cessation Date 03/07/80 07/14/25 09:47 Hx Smoking Cessation Counseling Hematologic Medial History Hematologic Hx - venetian blind worker: Hematologic Medical Hx - procurement officer Hx of Blood Transfusion No 07/14/25 09:47 Hx of Transfusion in last 3 No 07/14/25 09:47 Months Date of Last Transfusion (if within last 3 months) Ever experience any problems No 07/14/25 09:47 with transfusion(s)? Specify any problems Hx of Preganancy in last 3 N/A 07/14/25 09:47 Months Nurse Filling Out Transfusion NBUCHER 07/14/25 09:47 & Questions: Date: 07/14/25 07/14/25 09:47 Time: 09:50 07/14/25 09:47 Patient unable to answer at this time (ie. confused, unrespo /Reproduction History /Reproductive History - venetian blind worker: /Reproductive Hx- venetian blind worker Hx Now Gestational Age (in weeks): EDC: Hx Hx Para Hx Section SAB No 07/14/25 09:47 Active Medications Active Medications: Current Medications Generic Name Dose Route Start Last Admin Trade Name Freq PRN Reason Stop Dose Admin Cefazolin Sodium 2 gm/ Sodium 110 mls @ 200 mls/hr 07/23/25 07:30 Chloride IV 07/23/25 08:02 INTRAOP ONE Lactated Ringer's 1,000 mls @ 15 mls/hr 07/23/25 06:00 07/23/25 06:31 IV 15 mls/hr .Q48H LESLIE Administration PFSH Medical History (Updated 07/16/25 @ 07:21 by ROSI Champion) Malignant melanoma of right lower extremity Non-smoker Wears glasses Prostate disease High cholesterol Heartburn Gastric reflux Former smoker History of echocardiogram (04/02/20) Patient denies significant medical history Home Medications ?Medication ?Instructions ?Recorded ?Last Taken ?Type aspirin 81 mg chewable tablet 81 mg PO DAILY@0800 ##30 04/02/20 07/21/25 Rx atorvastatin 40 mg tablet 40 mg PO QHS #30 tabs 04/03/20 07/22/25 Rx omeprazole 20 mg capsule,delayed 20 mg PO DAILY 09/07/22 07/23/25 History release oxycodone 5 mg tablet 5 mg PO BID PRN pain 5 days #10 07/16/25 Unknown Rx tabs Allergy/AdvReac Type Severity Reaction Status Date / Time bee venom protein (honey Allergy Severe Anaphylaxis Verified 07/23/25 06:20 bee) (bee sting) Surgical History S/P TURP (09/14/22) History of wisdom tooth extraction History of hernia surgery (~1979) Social History Smoking Status: Former smoker how long ago did patient quit smokin years ago substance use type: marijuana additional social history: pt denies vaping, pt uses marijuana, uses edibles, take daily aspirin and uses ibuprofen Denies blood disorder, pt reports had a stroke. Review of Systems (Anesthesia) ROS Narrative System reviewed and no additional complaints, except as documented.
--- NOTE | 2025-07-23 07:07 | PCM.HP.STD ---
HPI - General HPI Narrative QUOC SWEENEY, is a 70 M who presents today for skin graft for right medial calf. He underwent melanoma excision of right lower extremity with Dr. Cardenas on 07/16/25. Pathology returned with clear margins. HPI 07/16/25: The patient is a 70-year-old male presenting with a melanoma on the right proximal calf. Patient initially noticed a wartlike lesion in the right proximal calf for about 4 months which was subsequently biopsied by Dr. Marsh mice raiser. Biopsy showed melanoma with a Breslow depth of 0.6 mm. There was reportedly no ulceration and there was <1 mitotic rate and no lymphatic spread on the shave biopsy (T1A lesion). Past medical history significant for hyperlipidemia, history of stroke 5 years ago with no residual deficits. He is on aspirin, statin. The patient has a history of a stroke five years ago, attributed to hyperlipidemia, with no residual deficits reported. He is currently on aspirin and a statin for cholesterol management. His bolster has been kept clean, no issues with drainage, significant pain. He denies changes in his medical health and changes to his medications. He denies fever, chills, urinary symptoms, rashes, dental infection. [facility] Medical History (Updated 07/16/25 @ 07:21 by ROSI Champion) Malignant melanoma of right lower extremity Non-smoker Wears glasses Prostate disease High cholesterol Heartburn Gastric reflux Former smoker History of echocardiogram (04/02/20) Patient denies significant medical history Home Medications ?Medication ?Instructions ?Recorded ?Last Taken ?Type aspirin 81 mg chewable tablet 81 mg PO DAILY@0800 ##30 04/02/20 07/21/25 Rx atorvastatin 40 mg tablet 40 mg PO QHS #30 tabs 04/03/20 07/22/25 Rx omeprazole 20 mg capsule,delayed 20 mg PO DAILY 09/07/22 07/23/25 History release oxycodone 5 mg tablet 5 mg PO BID PRN pain 5 days #10 07/16/25 Unknown Rx tabs Allergy/AdvReac Type Severity Reaction Status Date / Time bee venom protein (honey Allergy Severe Anaphylaxis Verified 07/23/25 06:20 bee) (bee sting) Surgical History S/P TURP (12/09/22) History of wisdom tooth extraction History of hernia surgery (~1979) Social History Smoking Status: Former smoker how long ago did patient quit smokin years ago substance use type: marijuana additional social history: pt denies vaping, pt uses marijuana, uses edibles, take daily aspirin and uses ibuprofen Denies blood disorder, pt reports had a stroke. ROS ROS Narrative General: Denies fever, chills HEENT: Denies headaches, vision changes, sore throat Cardio: Denies chest pain, leg edema Pulmonary: Denies shortness of pain, cough, wheezing GI: Denies nausea, vomiting, diarrhea Vital Signs Vital Signs Vital Signs: 07/23/25 06:24 07/23/25 06:24 07/23/25 07:05 Temperature 97.2 F L 97.2 F L Temperature Source Temporal Pulse Rate 58 L 58 L Respiratory Rate 16 16 Respiratory Pattern Normal Blood Pressure 151/74 H 151/74 H Blood Pressure Mean 99 Blood Pressure Source Monitor Blood Pressure Position Semi-Fowlers Blood Pressure Location Left Arm Pulse Ox 97 97 Oxygen Delivery Method Room Air Weight Weight: 165 lb 5.547 oz Body Mass Index (BMI) 21.8 Physical Exam Narrative Afebrile/VSS. Lying in bed in no acute distress. - Skin: Examination of the right proximal medial posterior calf bolster dressing intact, no surrounding induration, or signs of infection. - No respiratory wheezing, increased effort or accessory muscle use noted. - Abdomen nondistended - Moves right lower extremity spontaneously and smoothly grossly to normal strength - Sensation intact to light touch. Assessment & Plan Assessment/Plan (1) Malignant melanoma of right lower extremity: PLAN: Negative margins from 07/16 excision presenting today for skin grafting [place] home same day Chris perez
[2025-07-23] MEDS: Lactated Ringers 1,000 ML 1000 ML IV (07:45)
[2025-07-23] MEDS: Cefazolin 1 GM/5 ML Vial 2 GM IV (07:45)
[2025-07-23] MEDS: Midazolam 2 MG/2 ML Syringe IV (07:45)
[2025-07-23] MEDS: Bupiv/Epi 0.25% 30 ML Vial (07:58)
[2025-07-23] MEDS: Lidocaine 1% /Epi 1:100 (20ml) 20 ML Vial (07:58)
--- NOTE | 2025-07-23 08:02 | PCM.OPRPT ---
Operative Report (Standard) Operative Information Date of Procedure: 07/23/25 Pre-Operative Diagnosis: Right leg wound after melanoma wide local excision, 3.8 x 3.8 cm Post-Operative Diagnosis: Same Surgery/Procedure Performed: 1) delayed primary closure 4 cm right leg gore inserter: Yes Business Services Officer: Mildred Lord Tasks completed by medical record assistant: Closing and Retracting Type of Anesthesia: MAC/Supplemental (30 cc of a 50-50 mixture 0.25% Marcaine with 1-200,000 epinephrine and 1% lidocaine with 1-200,000 epinephrine) RN Documented Start/Stop Times: Operation Date: 07/23/25 07:30 Case Time Into Pre-Op 07/23/25 05:56 Out of Pre-Op 07/23/25 07:40 Anesthesia Start 07/23/25 07:45 Into Room 07/23/25 07:45 Procedure Start Time: 08:08 Procedure Stop Time: 08:31 Select all DRAINS/GRAFTS/IMPLANTS that apply: Graft (Skin graft) Graft details: Right thigh to right leg, split thickness at 12/1000TH inch Estimated Blood Loss: 10 cc Specimen collected: No Description of surgery: Indications: Patient is a delightful 70-year-old male who has clear margins after wide local excision (1 cm margins) around a biopsy site that demonstrated a 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 He presents today for definitive reconstruction with a skin graft versus delayed primary closure. I talked to him about the risks, benefits, and alternatives to this procedure in preoperative holding in clinic and he agreed to proceed. Procedure details: Patient was quickly identified in preoperative holding and taken back to the operating room where he was administered sedation and the above-noted local anesthesia. He was prepped and draped in sterile fashion. Timeout was performed. The bolster was removed and demonstrated a healthy wound bed ready for grafting. The wound bed was irrigated with copious amounts of normal saline and Irrisept. Initially I had been concerned of too much tension in this area; however, with the bolster in place for the past week (with tension on the wound edges from the Vicryl sutures), the skin had stretched and with the skin under full tension with the knee in extension, I was still able to close primarily with ease. Therefore 2-0 PDS deep fascial sutures were placed and 3-0 Monocryl deep dermal sutures and 3-0 Monocryl interrupted sutures were placed for an intermediate delayed primary closure of 4 cm. Prineo tape was applied. The skin graft was deferred. Postoperative plan: Okay to shower tomorrow. follow-up in clinic in 1 week Surgical Findings: Healthy wound bed with exposed gastroc tendon at the base. There was enough skin laxity from the pull of the bolster over the week to close without excessive tension. Complications Complications: No
[2025-07-23] MEDS: Epinephrine (1 mg/ml) 1 MG/ML VIAL (08:09)
[2025-07-23] MEDS: Mineral Oil, Light Sterile 10 ML Vial MC (08:10)
--- NOTE | 2025-07-23 08:40 | PCM.POST.ANE ---
Anesthesia: Postop Eval I Current Vital Signs Temperature: 97.5 F Pulse Rate: 63 Blood Pressure: 93/68 Respiratory Rate: 18 Pulse Ox: 94 Assessment Airway patent: Yes Spontaneous unlabored respirations: Yes nausea: No Vomiting: No Anesthesia Complication: No Fluid Hydration Crystalloid volume administer (ml): 1,000 Total IV fluid infused: 1,000 Progress Note Anesthesia document: Postop Eval 1 completed: Yes
--- NOTE | 2025-07-23 08:59 | POSTOPAN2_ITS ---
Anesthesia Postop Eval I Sum Postop Eval Completion status Anesthesia document: Postop Eval 1 completed: Yes Anesthesia Postop Eval I Summary Anesthesia Postop Eval I Summary: Anesthesia Postop Eval I: Assessment Summary Airway patent Yes 07/23/25 08:40 IT RISK ANALYST.CSIR Spontaneous unlabored Yes 07/23/25 08:40 IT RISK ANALYST.CSIR respirations Mental status nausea No 07/23/25 08:40 IT RISK ANALYST.CSIR Vomiting No 07/23/25 08:40 IT RISK ANALYST.CSIR Anesthesia Postop Eval I: Fluid Summary Crystalloid volume administer 1,000 07/23/25 08:40 IT RISK ANALYST.CSIR (ml) Colloids volume administered ( ml) Blood Product volume administered (ml) Total IV fluid infused 1,000 07/23/25 08:40 IT RISK ANALYST.CSIR Anesthesia Postop Eval I: Summary Notes Anesthesia Complication No 07/23/25 08:40 IT RISK ANALYST.CSIR Anesthesia Complication Comment: Post-operative progress note Anesthesia: Postop Eval II Evaluation Mental status: Awake Pain Level: 0 nausea: No Vomiting: No
--- NOTE | 2025-07-23 08:59 | PCM.POSTANE2 ---
Anesthesia Postop Eval I Sum Postop Eval Completion status Anesthesia document: Postop Eval 1 completed: Yes Anesthesia Postop Eval I Summary Anesthesia Postop Eval I Summary: Anesthesia Postop Eval I: Assessment Summary Airway patent Yes 07/23/25 08:40 CHIEF LIBRARIAN [employer]IC DEPARTMENT.CSIR Spontaneous unlabored Yes 07/23/25 08:40 CHIEF LIBRARIAN [employer]IC DEPARTMENT.CSIR respirations Mental status nausea No 07/23/25 08:40 CHIEF LIBRARIAN [employer]IC DEPARTMENT.CSIR Vomiting No 07/23/25 08:40 CHIEF LIBRARIAN [employer] DEPARTMENT.CSIR Anesthesia Postop Eval I: Fluid Summary Crystalloid volume administer 1,000 07/23/25 08:40 CHIEF LIBRARIAN [employer]IC DEPARTMENT.CSIR (ml) Colloids volume administered ( ml) Blood Product volume administered (ml) Total IV fluid infused 1,000 07/23/25 08:40 CHIEF LIBRARIAN [employer]IC DEPARTMENT.CSIR Anesthesia Postop Eval I: Summary Notes Anesthesia Complication No 07/23/25 08:40 CHIEF LIBRARIAN [employer] DEPARTMENT.CSIR Anesthesia Complication Comment: Post-operative progress note Anesthesia: Postop Eval II Evaluation Mental status: Awake Pain Level: 0 nausea: No Vomiting: No
== END 2025-07-23 10:08 | disposition home or self-care (01) ==
LOC: SDC 05:48 → AC 05:49
PROVIDERS: Referring Provider Surgery Plastic and Reconstructive Surgery; Visit Provider Surgery Plastic and Reconstructive Surgery
PROC: (CPT 12032; principal; 2025-07-23 07:15)
DX: T81.89XA Other complications of procedures, not elsewhere classified, initial encounter (principal); K21.9 Gastro-esophageal reflux disease without esophagitis; Z87.891 Personal history of nicotine dependence; Z79.82 Long term (current) use of aspirin; E78.00 Pure hypercholesterolemia, unspecified; Z79.899 Other long term (current) drug therapy; Y83.8 Other surgical procedures as the cause of abnormal reaction of the patient, or of later complication, without mention of misadventure at the time of the procedure
CPT/HCPCS: 12032; 00400; J2405